=== PATIENT | male | born 1935 | race Hispanic/Latino ===

== ENCOUNTER 2018-04-01 16:19 | Inpatient (IN) | payer MEDICARE ==
[2018-04-01 16:40] VITALS: BMI 15.5
--- NOTE | 2018-04-01 17:30 | ED PDOC ---
Arrival/HPI - General Historian: Patient, Spouse - History of Present Illness Time/Duration: Other (1 day) Symptom Onset: Sudden Symptom Course: Unchanged Quality: Stabbing, Throbbing Severity Level: 7 <Ady Berrios - Last Filed: 04/01/18 22:57> <FloriTaz - Last Filed: 04/01/18 23:11> - General Chief Complaint: Back Pain Time Seen by Provider: 04/01/18 16:28 - History of Present Illness Narrative History of Present Illness (Text): 04/01/18 19:02 Patient with PMH of HTN, HLD, hx Prostate Ca s/p radiation tx, and CAD s/p CABG who presents with acute onset left lower back pain. Reports awoke from sleep this AM with left lower back pain, thinks while twisting in bed he developed it. Denies any similar past pain. Denies hx nephrolithiasis. Pain worse with movement or palpation. Denies dysuria, hematuria, frequency since awaking with pain, voiding urine and moved bowels without issue. Denies nausea, emesis; tolerated AM PO intake without issue. reports to staff he spends most of time in bed, minimally active, and has been losing weight continuously. Appears cachetic on exam. Admits chronic smoking hx, previously 1/2 ppd for > 50 yrs, recently cut down to 1/4 ppd. Denies shortness of breath, chest pain, fevers, chills, dysuria, hematuria, obstructed urinary flow, diarrhea, focal weakness, or radiation of back pain into midline back or down left leg. All other ROS in 12-system review negative. PMH: as above PSH: CABG Soc Hx: admits tobacco (down to 1/4 ppd, previously 1/2 ppd x 50 yrs), denies alcohol/illicits/IVDA Fam Hx: unsure PMD: Dr. Luna (Ady Berrios) Associated Symptoms (Text): 04/01/18 19:21 Worse with position changes or palpation (Ady Berrios) Past Medical History - Provider Review Nursing Documentation Reviewed: Yes - Cardiac Hx Hypertension: Yes - Psychiatric Hx Substance Use: No - Surgical History Hx Open Heart Surgery: Yes (tripple bypass) - Anesthesia Hx Anesthesia Reactions: No Hx Malignant Hyperthermia: No <Ady Berrios - Last Filed: 04/01/18 22:57> Family/Social History - Physician Review Nursing Documentation Reviewed: Yes Family/Social History: Unknown Family HX Smoking Status: Current Some Days Smoker Hx Alcohol Use: Yes Frequency of alcohol use: Socially Hx Substance Use: No <Ady Berrios - Last Filed: 04/01/18 22:57> Allergies/Home Meds <Ady Berrios - Last Filed: 04/01/18 22:57> <Taz Ruby - Last Filed: 04/01/18 23:11> Allergies/Adverse Reactions: Allergies No Known Allergies Allergy (Verified 04/01/18 16:35) Home Medications: Home Meds Medication Instructions Recorded Confirmed Lisinopril [Zestril] 20 mg PO DAILY 04/01/18 04/01/18 Review of Systems - Physician Review All systems were reviewed & negative as marked: Yes (as per HPI) - Review of Systems Constitutional: Normal. absent: Fatigue Eyes: Normal. absent: Vision Changes Respiratory: Normal. absent: SOB Cardiovascular: Normal. absent: Chest Pain, Syncope Gastrointestinal: Normal. absent: Abdominal Pain, Constipation, Diarrhea, Nausea, Vomiting Genitourinary Male: Normal. absent: Dysuria, Frequency, Hematuria Musculoskeletal: Back Pain. absent: Normal, Neck Pain Neurological: Normal. absent: Headache, Dizziness <Ady Berrios - Last Filed: 04/01/18 22:57> Physical Exam Vital Signs Reviewed: Yes Temperature: Afebrile Blood Pressure: Hypotensive Pulse: Regular Respiratory Rate: Normal Appearance: Positive for: Non-Toxic, Ill-Appearing, Uncomfortable, Cachectic Pain Distress: Moderate Mental Status: Positive for: Alert and Oriented X 3 - Systems Exam Head: Present: Atraumatic, Normocephalic Pupils: No: Pinpoint Extroacular Muscles: Present: EOMI. No: Gaze Palsy, Entrapment Conjunctiva: Present: Normal. No: Injected, Icteric Mouth: Present: Dry, Normal Lips, Normal Tounge. No: Moist Mucous Membranes, Drooling Nose (External): Present: Atraumatic. No: Abrasion, Laceration Nose (Internal): Present: No Active Bleeding. No: Epistaxis Neck: Present: Normal Range of Motion, Trachea Midline. No: MIDLINE TENDERNESS , JVD Respiratory/Chest: Present: Clear to Auscultation, Good Air Exchange, Decreased Breath Sounds (mildly decreased breath sounds all turner). No: Respiratory Distress, Accessory Muscle Use, Wheezes, Rales, Rhonchi Cardiovascular: Present: Regular Rate and Rhythm, Normal S1, S2. No: Murmurs, Irregular Rhythm, Tachycardic, Bradycardic Abdomen: Present: Normal Bowel Sounds. No: Tenderness, Distention, Guarding, Mass/Organomegaly Back: Present: CVA Tenderness (left CVA tenderness), Other (left quadratus lumborum muscle spasm). No: Midline Tenderness, Paraspinal Tenderness, Pain with Leg Raise, Decubitus Ulcer Upper Extremity: Present: Normal Inspection, Normal ROM, NORMAL PULSES. No: Cyanosis, Edema, Tenderness, Swelling, Erythema, Deformity Lower Extremity: Present: Normal Inspection, NORMAL PULSES, Normal ROM. No: Edema, CALF TENDERNESS, Cyanosis, Tenderness, Swelling, Erythema, Deformity Neurological: Present: GCS=15, Speech Normal, Motor Func Grossly Intact, Normal Sensory Function Skin: Present: Warm, Dry, Normal Color. No: Rashes Lymphatic: No: Cervical Adenopathy Psychiatric: Present: Alert, Oriented x 3, Normal Insight, Normal Concentration , Normal Affect, Normal Mood <Ady Berrios - Last Filed: 04/01/18 22:57> <Taz Ruby - Last Filed: 04/01/18 23:11> Vital Signs Temp Pulse Resp BP Pulse Ox 04/01/18 18:19 83 18 97/63 L 95 04/01/18 16:19 98.7 F 95 H 18 95/51 L 94 L Medical Decision Making Reassessment Condition: Re-examined, Unchanged <Ady Berrios - Last Filed: 04/01/18 22:57> <Taz Ruby - Last Filed: 04/01/18 23:11> ED Course and Treatment: 04/01/18 17:30 Ddx: Nephrolithiasis vs Quadratus lumborum spasm vs Pyelonephritis; failure to thrive sx suggestive of occult cancer in patient with extensive smoking hx -Lack of systemic symptoms less suggestive of Pyelo/UTI, but will obtain UA to assess -Definite left quad lumborum muscle spasm on exam, trial 2mg Valium x1 for pain control and relief -If UA negative for hematuria, less likely stone, can obtain CT chest/abd/ pelvis with contrast for assessment for possible cancer and staging, if positive for hematuria then CT without contrast to assess for nephrolithiasis -CBC, CMP, Mg, Phos ordered, CXR ordered to assess for baseline pulmonary disease, follow up 04/01/18 18:42 -CXR concerning for possible widened descending aorta, awaiting UA results to determine CT with/without contrast or just with, also suggestive of several discrete lung masses bilaterally -Labs suggestive of dehydration, new KEIRA and elevated BUN (1.6 Cr, was 0.9 in 2011, BUN 66) not present in 2010, starting LR 2L bolus 04/01/18 21:23 -UA suggestive of UTI, also notable for 5-10 RBCs/hpf, will obtain CT without contrast to assess for nephrolithiasis -Still appears dry, minimal urine output despite 2L bolus, another 1L LR ordered 04/01/18 22:58 -No nephrolithaisis on CT Chest/abd/pelvis, but multiple lung lesions suspicious for malignancy, multiple renal lesions (cyst vs mass), possible L hydronephrosis, and bladder distension; pending official read -Carrillo for bladder distension, suspect urinary retention, possibly 2/2 hx prostate cancer s/p radiation therapy -Started on Rocephin for UTI -Case discussed with pt's PMD, Dr. Luna, who agrees with admission for UTI/ Possibly Pyelo with failure to thrive. Requests NS 50cc/hr IVF, ID consult ( Dr. Jenkins), and agrees with antibiotics and Carrillo placement. Bridge orders placed. To be admitted to Med/Surg. Patient seen, reviewed, and discussed with attending[facility] I agree with resident md note /exam/appraisal . CT Abd /pelvis pending official read has been disussed with Dr. Luna whom will be following it up, prn urology consultation. 04/01/18 23:07 (Taz Ruby) - Lab Interpretations Lab Results: 04/01/18 17:20 04/01/18 17:20 Lab Results 04/01/18 19:41: Urine Color Light yellow, Urine Appearance Sl cloudy, Urine pH 6.0, Ur Specific [place] 1.020, Urine Protein 30 H, Urine Glucose (UA) Negative , Urine Ketones Negative, Urine Blood Moderate H, Urine Nitrate Negative, Urine Bilirubin Negative, Urine Urobilinogen 0.2, Ur Leukocyte Esterase Large H, Urine RBC 5 - 10, Urine WBC Tntc, Ur Epithelial Cells 0 - 2, Urine Bacteria Large 04/01/18 17:20: Sodium 139, Chloride 94 L, Potassium 3.7, Carbon Dioxide 35 H, Anion Gap 14, BUN 66 H, Creatinine 1.6 H, Est GFR ( Amer) 50, Est GFR ( Non-Af Amer) 42, Random Glucose 102, Calcium 8.8, Magnesium 2.0, Total Bilirubin 0.2, AST 20, ALT 20, Alkaline Phosphatase 136 H, Troponin I < 0.01, Total Protein 6.7, Albumin 3.4, Globulin 3.3, Albumin/Globulin Ratio 1.0 L 04/01/18 17:20: pO2 27 L, VBG pH 7.37, VBG pCO2 66.0 H*, VBG HCO3 38.2 H, VBG Total CO2 40.2 H, VBG O2 Sat (Calc) 59.7, VBG Base Excess 10.2 H, VBG Potassium 3.6, Sodium 136.0, Chloride 98.0, Glucose 102, Lactate 1.0, FiO2 21.0, Venous Blood Potassium 3.6 04/01/18 17:20: PT 13.6 H, INR 1.19 H, APTT 27.5 04/01/18 17:20: WBC 14.0 H, RBC 3.69, Hgb 11.0 L, Hct 33.8 L, MCV 91.6, MCH 29.8 , MCHC 32.5, RDW 13.4, Plt Count 392, MPV 9.4, Gran % 79.9 H, Lymph % (Auto) 7.8 L, [place] % (Auto) 11.1 H, Eos % (Auto) 1.0 L, Baso % (Auto) 0.2, Gran # 11.20 H, Lymph # (Auto) 1.1 L, [place] # (Auto) 1.6 H, Eos # (Auto) 0.1, Baso # ( Auto) 0.03 - RAD Interpretation Radiology Orders: 04/01/18 17:13 CHEST PORTABLE [RAD] Stat 04/01/18 20:14 CHEST,ABDOMEN, PELVIS W/O CONT [CT] Stat - Medication Orders Current Medication Orders: Lactated Ringer's (Lactated Ringer's) 1,000 mls @ 999 mls/hr IV .Q1H1M [facility] Last Admin: 04/01/18 19:19 Dose: 999 mls/hr eMAR Start Stop Document 04/01/18 19:19 EWO (Rec: 04/01/18 19:19 [id number]) Intravenous Solution Start Date 04/01/18 Start Time 19:15 End Date 04/01/18 End time 20:15 Total Infusion Time 60 Ceftriaxone Sodium (Rocephin 1 Gram Ivpb) 1 gm in 100 mls @ 100 mls/hr IVPB ONCE ONE PRN Reason: Protocol Stop: 04/01/18 23:59 Ceftriaxone Sodium (Rocephin 1 Gram Ivpb) 1 gm in 100 mls @ 100 mls/hr IVPB DAILY [facility] PRN Reason: Protocol Sodium Chloride (Sodium Chloride 0.9%) 1,000 mls @ 50 mls/hr IV .Q20H [facility] Discontinued Medications Diazepam (Valium) 2 mg PO ONCE ONE PRN Reason: Protocol Stop: 04/01/18 17:23 Last Admin: 04/01/18 17:33 Dose: 2 mg Lactated Ringer's 2,000 ml/ IV (SUPPLIES) 2,000 mls @ 48,848.1 mls/hr IV ONCE ONE PRN Reason: 999 ML/KG/HR Stop: 04/01/18 17:14 Last Admin: 04/01/18 17:33 Dose: 48,848.1 mls/hr eMAR Start Stop Document 04/01/18 17:33 EWO (Rec: 04/01/18 17:34 [id number]) Intravenous Solution Start Date 04/01/18 Start Time 17:34 End Date 04/01/18 End time 18:00 Total Infusion Time 26 Tamsulosin HCl (Flomax) 0.4 mg PO STAT STA Stop: 04/01/18 20:50 - PA / WOUND CARE RN / Resident Statement / has examined the patient and agrees with the treatment plan. <Taz Ruby - Last Filed: 04/01/18 23:11> Disposition/Present on Arrival - Present on Arrival Any Indicators Present on Arrival: No History of DVT/PE: No History of Uncontrolled Diabetes: No Urinary Catheter: No History of Decub. Ulcer: No History Surgical Site Infection Following: CABG - Mediastinitis - Disposition Have Diagnosis and Disposition been Completed?: Yes Disposition Time: 22:57 Patient Plan: Admission <Ady Berrios - Last Filed: 04/01/18 22:57> <Taz Ruby - Last Filed: 04/01/18 23:11> - Disposition Diagnosis: UTI (urinary tract infection), Pyelonephritis, Failure to thrive, Dehydration Disposition: HOSPITALIZED Patient Problems: Current Active Problems Problem Status Onset Pyelonephritis Acute UTI (urinary tract infection) Acute Condition: GUARDED Referrals: Celia JIMENEZ,Alessio Johnson MD [Primary Care Provider] - Follow up with primary Forms: [employer] (Belarusian)
[2018-04-01 17:41] LABS: BASO # 0.03 K/mm3 (0.0-2.0); BASO % 0.2 % (0.0-3.0); EOS # 0.1 (0.0-0.7); GRAN # 11.2 (1.4-6.5); GRAN % 79.9 % (50.0-68.0); LYMPH # 1.1 (1.2-3.4); LYMPH % 7.8 % (22.0-35.0); MEAN CELL VOLUME 91.6 fl (80.0-105.0); MEAN CORPUSCULAR HEMOGLOBIN 29.8 pg (25.0-35.0); MEAN CORPUSCULAR HGB CONC 32.5 g/dl (31.0-37.0); MEAN PLATELET VOLUME 9.4 fl (7.0-11.0); MONO # 1.6 (0.1-0.6); MONO % 11.1 % (1.0-6.0); RBC 3.69 10^6/uL (3.5-6.1); RED CELL DISTRIBUTION WIDTH 13.4 % (11.5-14.5)
[2018-04-01 17:52] LABS: ALBUMIN 3.4 g/dL (3.0-4.8); ALT/SGPT 20 U/L (7-56); AST/SGOT 20 U/L (17-59); BLOOD UREA NITROGEN 66 mg/dL (7-21); CALCIUM 8.8 mg/dL (8.4-10.5); GFR AFRICAN-AMERICAN 50; GFR NON-AFRICAN AMERICAN 42
[2018-04-01 17:55] LABS: VENOUS BLOOD GAS BASE EXCESS 10.2 mmol/L (0.0-2.0); VENOUS BLOOD GAS PO2 27 mm/Hg (30-55); VENOUS BLOOD PH 7.37 (7.32-7.43)
[2018-04-01 17:56] LABS: INR 1.19 (0.93-1.08); PARTIAL THROMBOPLASTIN TIME 27.5 Seconds (25.1-36.5); PROTHROMBIN TIME 13.6 SECONDS (9.4-12.5)
[2018-04-01 18:03] LABS: TROPONIN I < 0.01 ng/mL
[2018-04-01] MEDS: Lactated Ringer's 1,000 ML IV SCH ×5 (19:19→23:30)
[2018-04-01 19:56] LABS: URINE BILIRUBIN NEGATIVE (NEGATIVE); URINE BLOOD MODERATE (NEGATIVE); URINE GLUCOSE (UA) NEGATIVE (NEGATIVE); URINE LEUKOCYTE ESTERASE LARGE Leu/uL (NEGATIVE); URINE PROTEIN 30 mg/dL (<30 mg/dL); URINE UROBILINOGEN 0.2 E.U./dL (<1 E.U./dL)
[2018-04-01 19:57] LABS: URINE APPEARANCE SL CLOUDY (CLEAR); URINE COLOR LIGHT YELLOW (YELLOW)
[2018-04-01 20:27] LABS: URINE BACTERIA LARGE (NEG); URINE EPITHELIAL CELLS 0 - 2 /hpf (0-5); URINE WBC TNTC /hpf (0-6)
[2018-04-01] MEDS ORDERED: cefTRIAXone 1 gm 1 GM/100 ML BAG IVPB ONE (23:00)
[2018-04-02] MEDS: Lactated Ringer's 1,000 ML IV SCH ×2 (00:45→01:21)
[2018-04-02] MEDS ORDERED: Pneumococcal 23-Valent Vaccine IM ONE (01:42)
[2018-04-02] MEDS: Sodium Chloride 0.9% 1,000 ML IV SCH ×2 (02:27→19:25)
[2018-04-02 08:09] LABS: HEMOGLOBIN 12.1 g/dL (14.0-18.0); MEAN CELL VOLUME 91.3 fl (80.0-105.0); MEAN CORPUSCULAR HEMOGLOBIN 30.2 pg (25.0-35.0); MEAN CORPUSCULAR HGB CONC 33.1 g/dl (31.0-37.0); RBC 4.01 10^6/uL (3.5-6.1); RED CELL DISTRIBUTION WIDTH 13.3 % (11.5-14.5); WHITE BLOOD COUNT 15.9 10^3/ul (4.5-11.0)
[2018-04-02 08:31] LABS: BLOOD UREA NITROGEN 41 mg/dL (7-21); CALCIUM 8.7 mg/dL (8.4-10.5); GFR AFRICAN-AMERICAN > 60; GFR NON-AFRICAN AMERICAN > 60
--- NOTE | 2018-04-02 08:40 | CT ---
PROCEDURE: CT Chest, Abdomen without intravenous contrast HISTORY: hematuria COMPARISON: None. TECHNIQUE: Radiation dose: Total exam DLP = 315 mGy-cm. This CT exam was performed using one or more of the following dose reduction techniques: Automated exposure control, adjustment of the mA and/or kV according to patient size, and/or use of iterative reconstruction technique. FINDINGS: CT CHEST WITHOUT CONTRAST: LUNGS: Severe centrilobular emphysema. 4.4 centimeter pleural-based mass at the right lower lobe, as well as a 2.0 centimeter pleural-based mass in the left lower lobe. Additional pleural-based nodule in the left upper lobe measuring 1.1 centimeter. 1.2 centimeter juxtapleural nodule is noted along the right major fissure. 2.6 centimeter left pericardial pleural margin mass. Findings are suspicious for metastases. MEDIASTINUM: 4.6 centimeter aortic aneurysm. . Normal size heart. LYMPH NODES: Unremarkable. PLEURA: Small right pleural effusion. BONES: Unremarkable. OTHER FINDINGS: None. CT ABDOMEN AND PELVIS: LIVER: Unremarkable. No gross lesion or ductal dilatation. GALLBLADDER AND BILE DUCTS: Unremarkable. PANCREAS: Unremarkable. No gross lesion or ductal dilatation. SPLEEN: Unremarkable. ADRENALS: Unremarkable. No mass. KIDNEYS AND URETERS: Multiple bilateral renal cysts. . No hydronephrosis. No solid mass. VASCULATURE: 3.1 centimeter abdominal aortic aneurysm. BOWEL: Unremarkable. No obstruction. No gross mural thickening. APPENDIX: Normal appendix. PERITONEUM: Unremarkable. No free fluid. No free air. LYMPH NODES: Unremarkable. No enlarged lymph nodes. Bladder is distended. Prostate enlargement. BONES: No acute fracture. OTHER FINDINGS: None. IMPRESSION: Multiple pleural-based masses suspicious for metastases. Thoracic and abdominal aortic aneurysm.
--- NOTE | 2018-04-02 09:07 | RAD ---
HISTORY: Sepsis Patient COMPARISON: No prior. FINDINGS: LUNGS: There is a 4.4 cm mass at the right lung base and a 2.4 cm mass in the left lower lobe. There are no prior studies for comparison. Findings consistent with metastatic disease. The lungs have a hyperaerated appearance consistent with COPD PLEURA: No significant pleural effusion identified, no pneumothorax apparent. CARDIOVASCULAR: Normal. OSSEOUS STRUCTURES: Sternal wires VISUALIZED UPPER ABDOMEN: Normal. OTHER FINDINGS: None. IMPRESSION: Bilateral lung masses
[2018-04-02] MEDS ORDERED: cefTRIAXone 1 gm 1 GM/100 ML BAG IVPB SCH (10:00)
--- NOTE | 2018-04-02 10:17 | RAD ---
PROCEDURE: Radiographs of the Lumbar Spine. HISTORY: low back pain, history of prostate cancer COMPARISON: No prior. FINDINGS: BONES: There is spondylolysis at L5 with mild spondylolisthesis at L5-S1. No evidence of metastatic disease DISC SPACES: Unremarkable. OTHER FINDINGS: None. IMPRESSION: There is spondylolysis at L5 with mild spondylolisthesis at L5-S1. No evidence of metastatic disease
--- NOTE | 2018-04-02 10:18 | RAD ---
PROCEDURE: Left Hip X-ray Radiographs. HISTORY: left hip pain COMPARISON: None. FINDINGS: BONES: Normal. No fracture. JOINTS: Normal. SOFT TISSUES: Normal. OTHER FINDINGS: None. IMPRESSION: No acute finding
--- NOTE | 2018-04-02 16:10 | CP.PCM.CON ---
History of Present Illness - History of Present Illness History of Present Illness: 82 year old male with PMH of CAD S/P CABG, prostate CA S/P radiation therapy, HTN, dyslipidemia, significant smoking history [place] [facility] [place] of left sided back pain after waking up. He felt that he moved wrongly and twisted his back. He is also complaining of some urinary frequency but no hematuria, no dysuria, no fever or chills, no nausea or vomiting, no chest pain, no SOB, no headache or dizziness, no abdominal pain, no diarrhea, no dysuria. Urinalysis done in the ED is showing pyuria. Infectious Diseases consult is requested to further evaluate and manage. Review of Systems - Review of Systems All systems: reviewed and no additional remarkable complaints except (as per HPI ) Past Patient History - Past Social History Smoking Status: Former Smoker - CARDIAC Hx Cardiac Disorders: Yes Hx Hypertension: Yes - PULMONARY Hx Chronic Obstructive Pulmonary Disease (COPD): Yes - MUSCULOSKELETAL/RHEUMATOLOGICAL Hx Falls: No - PSYCHIATRIC Hx Substance Use: No - SURGICAL HISTORY Hx Surgeries: Yes Hx Coronary Stent: Yes - ANESTHESIA Hx Anesthesia Reactions: No Hx Malignant Hyperthermia: No Meds Allergies/Adverse Reactions: Allergies Allergy/AdvReac Type Severity Reaction Status Date / Time No Known Allergies Allergy Verified 04/01/18 16:35 - Medications Medications: Current Medications Lactated Ringer's (Lactated Ringer's) 1,000 mls @ 999 mls/hr IV .Q1H1M [facility] Last Admin: 04/02/18 01:21 Dose: 999 mls/hr Ceftriaxone Sodium (Rocephin 1 Gram Ivpb) 1 gm in 100 mls @ 100 mls/hr IVPB DAILY [facility] PRN Reason: Protocol Sodium Chloride (Sodium Chloride 0.9%) 1,000 mls @ 50 mls/hr IV .Q20H [facility] Last Admin: 04/02/18 02:27 Dose: 50 mls/hr Physical Exam - Constitutional Appears: Non-toxic, Cachectic, Chronically Ill - Head Exam Head Exam: NORMAL INSPECTION - ENT Exam ENT Exam: Mucous Membranes Moist - Neck Exam Neck exam: Negative for: Meningismus - Respiratory Exam Respiratory Exam: Decreased Breath Sounds - Cardiovascular Exam Cardiovascular Exam: +S1, +S2 - GI/Abdominal Exam GI & Abdominal Exam: Soft. absent: Tenderness - Back Exam Back exam: tenderness (on the left side (on palpation of the lumbar musculature) ) Results - Vital Signs Recent Vital Signs: Last Vital Signs Temp 98.1 F 04/02/18 01:28 Pulse 105 H 04/02/18 01:28 Resp 18 04/02/18 01:28 BP 107/44 L 04/02/18 01:28 Pulse Ox 99 04/02/18 01:21 - Labs Result Diagrams: 04/02/18 08:00 04/02/18 08:00 Assessment & Plan - Assessment and Plan (Free Text) Plan: Assessment Systemic Inflammatory response syndrome, consider due to acute musculoskeletal pain on top of probable metastatic prostate cancer R/O UTI CAD S/P CABG prostate CA S/P radiation therapy HTN dyslipidemia significant smoking history Plan Started the patient on Rocephin pending urine cx reviewed CT C/A/P patient will need evaluation and recommendations from Oncology overall prognosis is poor will monitor clinically
--- NOTE | 2018-04-02 16:32 | CARD ---
APPROVED REPORT EKG Measurement Heart [id number] <Conclusion> Sinus tachycardia Low voltage QRS Borderline ECG
--- NOTE | 2018-04-02 20:19 | HP ---
HISTORY OF PRESENT ILLNESS: The patient is an 82 year old man with a past medical history of prostate cancer s/p radiation therapy (treated in 2001) and COPD who presented for evaluation of a 3 week history of progressively worsening low back pain which became acutely worse over the preceding 3 days. The patient reports that for the past 3 weeks he has been experiencing a dull pain to his lower back with radiation to the left hip. Over the course of the past 3 days the pain suddenly worsened spontaneously and the patient developed difficulty ambulating. Due to his gait instability and weakness he was brought to the ED. Examination in the ED disclosed found him to be cachectic and with a mildly distended abdomen with suprapubic tenderness. A ghosh catheter was placed and he was subsequently admitted for hydration and nourishment. PAST MEDICAL HISTORY: As per HPI, also hypertension and CAD s/p CABG. PAST SURGICAL HISTORY: As per HPI. ALLERGIES: NKDA. MEDICATIONS: Lisinopril/HCTZ 20/25 mg p.o. daily. FAMILY HISTORY: Significant for COPD and hypertension. SOCIAL HISTORY: The patient reports an active [id number] smoking history and social alcohol use. He denies illicit drug abuse. REVIEW OF SYSTEMS: Positive for poor appetite, weight loss, back pain, increased urinary frequency , nocturia and weak stream. Negative for fevers, chills, rigors, hematuria, melena, hematochezia or hemoptysis. PHYSICAL EXAMINATION VITAL SIGNS: Temperature 98.3, pulse 97, blood pressure 100/59, respiratory rate 20, oxygen saturation 95% on room air. GENERAL: A cachectic chronically ill appearing elderly man, lying in bed in no apparent distress. HEENT: PERRL. EOMI. No scleral icterus. No conjunctival pallor. NECK: No JVD. LUNGS: Decreased breath sounds at the bases. CARDIOVASCULAR: Regular rate and rhythm. Normal S1 and S2. ABDOMEN: Normoactive bowel sounds. Soft, nontender, and nondistended. EXTREMITIES: No edema. NEUROLOGIC: Awake, alert and oriented x 3. No focal motor deficits. LABORATORY DATA: WBC 15.9 with 80% neutrophils, hemoglobin 12, hematocrit 36, platelets 361. Sodium 139, potassium 3.7, chloride 94, bicarbonate 35, BUN 66, creatinine 1.6, glucose 102. Urinalysis demonstrates cloudy urine with moderate blood, large leukocyte esterase, but negative nitrites. IMAGING STUDIES: 1. Chest x-ray pending. 2. CT of the chest, abdomen and pelvis pending. ASSESSMENT: The patient is an 82 year old man with a past medical history of prostate cancer s/p radiation therapy, CAD s/p CABG, COPD and HTN who presented for evaluation of progressively worsening low back pain, lower urinary symptoms and failure to thrive. PLAN: 1. Low back pain, consider etiology secondary to osteoarthritis versus possible muscle spasm vs urinary retention. Given the patient's underlying history of prostate cancer, we will obtain an x-ray of the lumbosacral spine and left hip to rule out possibility of metastatic prostate cancer. Continue with Motrin 800 mg p.o. t.i.d. p.r.n. pain and Flexeril 5 mg p.o. t.i.d. Continue with PT/OT. 2. History of prostate cancer s/p radiation therapy. The patient completed a course of treatment in 2001 and was previously followed by Dr. Merritt of Urology. We will repeat a PSA and await imaging studies and we will consult Urology to evaluate need for long-term ghosh. 3. Acute kidney injury, consider etiology secondary to obstructive uropathy versus prerenal azotemia in the setting of poor p.o. intake. As above, we were awaiting CT imaging to assess for possible obstruction. A Ghosh catheter has been placed and we will continue to monitor strict I&O's. Continue with gentle IV fluid hydration consisting of normal saline at 50 mL per hour. Continue to renally dose medications and avoid nephrotoxins. 4. CAD s/p CABG. 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 Resume Aspirin 81 mg p.o. daily. 5. COPD. Continue with supplemental oxygen and bronchodilators as needed. 6. Hypertension. Blood pressure remains borderline low. We will continue with IV fluid hydration and hold antihypertensives. 7. Failure to thrive. 8. Prophylaxis. GI prophylaxis is not indicated as the patient is eating. We will start heparin for DVT prophylaxis. CODE STATUS: Full code. Alessio Yang MD [facility] # [id number] MTDD
--- NOTE | 2018-04-03 05:54 | CON ---
DATE: 04/02/2018 GENITOURINARY CONSULTATION CHIEF COMPLAINT: Urinary retention. HISTORY OF PRESENT ILLNESS: This is an 82-year-old male who was seen in [facility]. He was admitted with acute onset of left lower back pain. Reportedly, the patient thinks he hurt it while twisting. He has no history of kidney stones. He does have a reported history of prostate cancer status post radiation treatment. He denies any dysuria, urinary frequency or gross hematuria. He reportedly had been voiding and moving his bowels without any issues. He denied any nausea or vomiting. The pain seems to be positional, worsened with bending or stretching, and palpation to the lower back. A consultation was then requested regarding the above. PAST MEDICAL HISTORY: Significant for COPD, coronary artery disease, hypertension. MEDICATIONS: Include aspirin, Flexeril, heparin, Motrin and IV fluids. He did receive Rocephin. ALLERGIES: NO KNOWN DRUG ALLERGIES. FAMILY HISTORY: Noncontributory for this event. SOCIAL HISTORY: Positive for smoking in the past, social EtOH use. REVIEW OF SYSTEMS: A 12-point review of systems was obtained from the patient who is awake and answering questions, although somewhat somnolent and appears to be a poor historian. Positive for low back pain. Other systems appear to be negative. Unclear why Carrillo catheter was placed. PHYSICAL EXAMINATION: CONSTITUTIONAL: The patient is awake and responsive, no acute distress, answering questions although a poor historian. The patient is very thin, somewhat cachectic looking. VITAL SIGNS: He is afebrile. Temperature of 98.3, pulse 97, BP 100/59, respirations 20. NECK: Supple. There is no adenopathy or mass. CHEST: Reveals normal inspiratory effort. Cardiac: Shows positive S1 and S2. There is no peripheral edema. ABDOMEN: Soft, nontender, nondistended. There is no hepatosplenomegaly. There is no costovertebral angle tenderness. There is tenderness on his lower back in the midline. GENITOURINARY: The phallus is normal. There is a Carrillo catheter in place draining clear-colored urine. The scrotum is normal. Testes bilaterally descended, nontender, no masses. Epididymides are normal. EXTREMITIES: There is no cyanosis, clubbing or edema. LABORATORY DATA: WBC count 15.9, hemoglobin 12.1. Creatinine was 1.6 yesterday, down to 1, with a GFR greater than 60. Elevated alkaline phosphatase. Urinalysis shows 5 to 10 rbc, too numerous to count wbc, nitrites are negative. On radiologic exam, the patient had a CT scan of the abdomen and pelvis done yesterday, which showed a 4.6 cm aortic aneurysm. The kidney showed multiple bilateral renal cysts. There was no hydronephrosis or solid mass. There was a 3.1 cm abdominal aneurysm, 4.6 in the mediastinum. There are multiple pleural-based masses suspicious for metastases. The patient had x-rays of the hips, pelvis and lumbar spine; hips and pelvis no acute findings, and the LS spine, no evidence of metastatic disease. Blood cultures, no growth after 24 hours. IMPRESSION AND PLAN: This is an 82-year-old male admitted with low back pain. Urologically, the patient appears to have had an episode of urinary retention, although he reported no voiding problems prior to this. It is unclear how much urine was in his bladder when the Carrillo was placed. His renal function has improved with Carrillo drainage. I would continue Carrillo drainage for now as it appears that the patient has lung cancer or metastatic tumors to his lung. Urologically, the plan would be when the patient's medical condition has improved, I will likely start him on tamsulosin and do a voiding trial, but I will discuss this with his medical attending Dr. Yang. For now, maintain Carrillo catheter indwelling at this time, check urine culture regarding wbc's in the urine, and I will need to discuss further plans with Dr. Yang. Carroll Godwin MD
[2018-04-03 06:57] LABS: BASO # 0.02 K/mm3 (0.0-2.0); BASO % 0.2 % (0.0-3.0); EOS # 0.1 (0.0-0.7); EOS % 0.6 % (1.5-5.0); GRAN # 10.48 (1.4-6.5); GRAN % 84.2 % (50.0-68.0); HEMOGLOBIN 10.9 g/dL (14.0-18.0); LYMPH # 1.3 (1.2-3.4); LYMPH % 10.5 % (22.0-35.0); MEAN CORPUSCULAR HGB CONC 32.6 g/dl (31.0-37.0); MEAN PLATELET VOLUME 9.3 fl (7.0-11.0); MONO # 0.6 (0.1-0.6); MONO % 4.5 % (1.0-6.0); RBC 3.63 10^6/uL (3.5-6.1); RED CELL DISTRIBUTION WIDTH 13.2 % (11.5-14.5); WHITE BLOOD COUNT 12.4 10^3/ul (4.5-11.0)
[2018-04-03 07:23] LABS: ALB/GLOB RATIO 0.9 (1.1-1.8); ALBUMIN 2.8 g/dL (3.0-4.8); ALT/SGPT 18 U/L (7-56); AST/SGOT 16 U/L (17-59); BLOOD UREA NITROGEN 32 mg/dL (7-21); CALCIUM 8.4 mg/dL (8.4-10.5); GFR AFRICAN-AMERICAN > 60; GFR NON-AFRICAN AMERICAN > 60
[2018-04-03] MEDS ORDERED: Lidocaine 1% Inj (20ml) ONE (09:28)
[2018-04-03] MEDS ORDERED: Midazolam 2 MG/2 ML VIAL ONE (09:28)
[2018-04-03] MEDS ORDERED: Sodium Chloride 0.45% 1,000 ML IV SCH (10:30)
[2018-04-03 13:24] LABS: INR 1.18 (0.93-1.08); PROTHROMBIN TIME 13.5 SECONDS (9.4-12.5)
--- NOTE | 2018-04-03 14:00 | PN ---
SUBJECTIVE: The patient was seen and examined at bedside on the general medical nelson. No acute events overnight. He endorses improvement in his low back pain since admission and overall offers no complaints. I had a lengthy discussion with the patient regarding the findings on his CT imaging, particularly the lesions noted on his CT of the chest. The patient was advised that this likely represents malignancy however a biopsy is indicated for confirmation. The patient expressed understanding of his clinical condition and was agreeable to biopsy. He was also evaluated by Dr. Godwin given his reported presentation with urinary retention so as to make recommendations for duration of maintaining the Carrillo catheter. OBJECTIVE: VITAL SIGNS: Temperature 98.2, pulse 83, blood pressure 101/65, respiratory rate 18, oxygen saturation 95% on room air. GENERAL: A cachectic, chronically ill appearing elderly man, lying in bed in no apparent distress. HEENT: PERRL. EOMI. No scleral icterus. No conjunctival pallor. NECK: No JVD. LUNGS: Decreased breath sounds at the bases. CARDIOVASCULAR: Regular rate and rhythm. Normal S1 and S2. ABDOMEN: Normoactive bowel sounds. Soft, nontender, nondistended. EXTREMITIES: No edema. NEUROLOGIC: Awake, alert and oriented x 3. No focal motor deficits. LABORATORY DATA: WBC 12, hemoglobin 11, hematocrit 33, platelets 356. Sodium 141, potassium 4.1, chloride 105, bicarb 35, BUN 32, creatinine 1, glucose 93. Blood cultures with no growth to date. IMAGING STUDIES: 1. CT of the chest, abdomen and pelvis without contrast demonstrated multiple pleural based masses suspicious for metastasis, multiple bilateral renal cysts, a distended bladder and prostate enlargement. 2. X-ray of the left hip demonstrated no acute pathology. 3. X-ray of the L-S spine demonstrated spondylolysis at L5 but no evidence of metastatic disease. ASSESSMENT: The patient is an 82 year old man with a past medical history of prostate cancer s/p radiation therapy, CAD s/p CABG, COPD and HTN who presented with progressively worsening low back pain, lower urinary symptoms and failure to thrive. PLAN: 1. Low back pain, consider etiology secondary to osteoarthritis versus muscle spasm versus urinary retention, resolving. X-ray imaging reviewed and no evidence of lytic lesions or metastatic disease. Furthermore the patient is reporting improvement with administration of Motrin and Flexeril. We will continue Motrin 800 mg p.o. t.i.d. p.r.n. pain but will discontinue Flexeril as the patient became rather hypotensive following administration. If he lumbago increases or does not fully resolve we will consider a bone scan given his underlying history of prostate cancer. Continue with PT/OT. 2. Acute urinary retention, resolved. Input from Dr. Godiwn noted and appreciated and recommendations have been made to maintain the Carrillo catheter in place for now. The Carrillo catheter is functioning properly and the patient is noted to have a favorably trending renal function. As per Dr. Godwin we will perform a voiding trial as the patient gets closer to discharge home. 3. Acute kidney injury, consider etiology secondary to obstructive uropathy versus prerenal azotemia in the setting of poor p.o. intake, resolving. Labs demonstrate a favorably trending renal function and the patient is noted to have a good urinary output. Continue with gentle IV fluid hydration for a further 24 hours consisting of normal saline at 50 mL per hour. Continue renally dosed medications and avoid nephrotoxins. 4. History of prostate cancer s/p radiation therapy. A repeat PSA level is satisfactory. Input from Dr. Godwin appreciated and at present there is no evidence of recurrence. 5. CAD s/p CABG. Continue Aspirin 81 mg p.o. daily. 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 6. COPD. Continue with supplemental oxygen and bronchodilators as needed. 7. Hypertension. The patient remains off antihypertensives and with borderline low blood pressure. Continue to encourage p.o. intake and continue with gentle IV fluid hydration. 8. Pulmonary lesions, highly suspicious for malignancy. Dr. Ancelmo Tucker of IR has been consulted for possible CT-guided biopsy. The patient has been extensively counseled on his current situation and is amenable to a biopsy. 9. Failure to thrive. Continue to encourage p.o. intake. We will obtain a senior principal software engineer consultation. 10. Prophylaxis. GI prophylaxis is not indicated as the patient is eating. Continue with heparin for DVT prophylaxis. CODE STATUS: Full code. Alessio Yang MD [facility]
--- NOTE | 2018-04-03 14:07 | RAD ---
HISTORY: RLL lung bx COMPARISON: CT biopsy images same day FINDINGS: LUNGS: There is no evidence of post biopsy pneumothorax PLEURA: No significant pleural effusion identified, no pneumothorax apparent. CARDIOVASCULAR: Normal. OSSEOUS STRUCTURES: No significant abnormalities. VISUALIZED UPPER ABDOMEN: Normal. OTHER FINDINGS: None. IMPRESSION: There is no evidence of post biopsy pneumothorax
--- NOTE | 2018-04-03 15:36 | CON ---
DATE: 04/03/2018 REASON FOR CONSULT: Multiple lung nodules and history of prostate cancer. HISTORY OF PRESENT ILLNESS: The patient is an 82-year-old male, unknown to me from prior, who has a history of prostate cancer diagnosed early and treated in 2001 with radiation therapy and history of COPD, who presented with complaints of progressively worsening back pain as well as hip pain, which suddenly got worse on Father's Day. He also has been losing weight steadily for the last year. He states he lost over 30 pounds, but has not sought any medical attention for the above. He does have decreased appetite, but denies any GI symptoms, has not noted any melena, any hematochezia. No change in bowel habits. No constipation. No change in caliber of stools. No other complaint. He also noted he had difficulty ambulating before he presented, but he denies prior such pain or complaints. He was also found to be severely dehydrated as he has not been eating or drinking well for the last several months, but has not complained of the above. PAST MEDICAL HISTORY: As above, known for hypertension, COPD, CAD, status post CABG. SURGICAL HISTORY: As above. ALLERGIES: NO KNOWN ALLERGIES. MEDICATIONS AT HOME: Include lisinopril and hydrochlorothiazide 20/25 mg and Flomax 0.4. FAMILY HISTORY: Significant for COPD and hypertension. SOCIAL HISTORY: Positive for [id number] smoking history and social alcohol use. 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 REVIEW OF SYSTEMS: As per the HPI. PHYSICAL EXAMINATION: VITAL SIGNS: His vitals reveal a temperature of 98.2, pulse of 76, respiratory rate of 16 and a blood pressure of 97/61 and much improved since admission of 77 and 47. GENERAL: The patient is an elderly, cachectic-appearing male, lying in bed, in no acute distress. HEENT: Head and neck normocephalic, atraumatic. Eyes: Pupils equal, round, reactive to light and accommodation. Extraocular muscles are intact. There is some pallor. No icterus is noted. NECK: Supple with no adenopathy. No JVD. No thyromegaly. LUNGS: Bilateral rhonchi are heard. CARDIOVASCULAR: S1 and S2 are heard. ABDOMEN: Positive bowel sounds, soft, nontender and nondistended. No organomegaly is palpated. EXTREMITIES: There is no edema, clubbing or cyanosis. LABORATORY DATA: His labs reveal a white count of 12.4, hemoglobin 10.9, hematocrit 33.4, MCV of 92 and a platelet count of 256. His white count diff is left shifted. Coags are within normal limits. His chemistries reveal a BUN and creatinine of 32 and 1. Admission BUN of 66 and creatinine of 1.6. Otherwise, electrolytes are within normal limits. PSA is noted to be only at 0.5. His CT of the chest, abdomen and pelvis which was done on admission without contrast reveals 4.4 cm pleural base mass at the right lower lobe as well as a 2 cm pleural base mass in the left lower lobe, additional pleural base nodules in the left upper lobe as well as right major fissure. His liver is unremarkable and there was no other grossly obstructing lesions noticed in his bowel. ASSESSMENT AND PLAN: Elderly male with a remote history of prostate cancer in 2001, status post radiation. Has not had any evidence of recurrence in multiple years. Now, also noted to have a prostate-specific antigen of 0.5, multiple pleural base nodules suspicious for metastatic disease, status post CT-guided biopsy of the lung yesterday. Discussed with Pathology. No preliminary report is available yet. The patient also has an anemia at this point. We will check iron studies, check a carcinoembryonic antigen. The patient does not have any localizing signs of prostate cancer being metastatic. Would also need an endoscopy and colonoscopy if this comes back as negative for prostate metastatic disease. I discussed with the patient that I will have more information for him once the biopsy results are available to discuss further treatment plans. Thank you for the consult. We will follow. Josi Covarrubias MD
[2018-04-03] MEDS: Sodium Chloride 0.9% 1,000 ML IV SCH (16:48)
--- NOTE | 2018-04-03 17:56 | CT ---
PROCEDURE: CT guided right lower lobe lung biopsy. HISTORY: Smoker. Bilateral pulmonary masses. Evaluate for malignancy PHYSICIAN(S): Ancelmo Tucker MD. TECHNIQUE: The relative risks and indications of the procedure were explained to the patient and consent obtained. The patient was placed prone on the CT scanner and preliminary images through the lung bases obtained. Conscious sedation and monitoring were provided throughout the procedure by a nurse. There is a 4.5 cm spiculated noncalcified mass in the right lower lobe posteriorly. A right posterior approach was selected and the area prepped and draped in the usual sterile fashion. 1% Xylocaine was used to anesthetize the skin and soft tissues. A 19 gauge guiding needle was advanced into the 4.5 cm right lower lobe mass.. Its position was confirmed with CT. Using coaxial technique, multiple core biopsies were obtained. The postprocedure images show no evidence of large pneumothorax or significant hemorrhage.. IMPRESSION: 1. CT-guided right lower lobe lung biopsy as described above.
[2018-04-03] MEDS ORDERED: Vancomycin 1gm in NS 250ml 1 GM/250 ML BAG IVPB STA (22:09)
[2018-04-04 02:28] LABS: URINE BILIRUBIN NEGATIVE (NEGATIVE); URINE BLOOD MODERATE (NEGATIVE); URINE GLUCOSE (UA) NEGATIVE (NEGATIVE); URINE LEUKOCYTE ESTERASE LARGE Leu/uL (NEGATIVE); URINE PROTEIN TRACE mg/dL (<30 mg/dL); URINE UROBILINOGEN 0.2 E.U./dL (<1 E.U./dL)
[2018-04-04 02:31] LABS: URINE APPEARANCE SL CLOUDY (CLEAR); URINE COLOR STRAW (YELLOW)
[2018-04-04 02:51] LABS: URINE EPITHELIAL CELLS 0 - 2 /hpf (0-5)
[2018-04-04 02:52] LABS: URINE BACTERIA SMALL (NEG)
[2018-04-04] MEDS: Sodium Chloride 0.9% 1,000 ML IV SCH (06:11)
[2018-04-04 07:17] LABS: BASO # 0.03 K/mm3 (0.0-2.0); BASO % 0.2 % (0.0-3.0); EOS # 0.1 (0.0-0.7); EOS % 0.9 % (1.5-5.0); GRAN # 10.93 (1.4-6.5); GRAN % 84.6 % (50.0-68.0); HEMOGLOBIN 10.7 g/dL (14.0-18.0); LYMPH # 1.1 (1.2-3.4); LYMPH % 8.6 % (22.0-35.0); MEAN CELL VOLUME 92.5 fl (80.0-105.0); MEAN CORPUSCULAR HEMOGLOBIN 29.6 pg (25.0-35.0); MEAN CORPUSCULAR HGB CONC 31.9 g/dl (31.0-37.0); MEAN PLATELET VOLUME 9.3 fl (7.0-11.0); MONO # 0.7 (0.1-0.6); MONO % 5.7 % (1.0-6.0); PLATELET COUNT 379 10^3/uL (120.0-450.0); RBC 3.62 10^6/uL (3.5-6.1); RED CELL DISTRIBUTION WIDTH 13.3 % (11.5-14.5); WHITE BLOOD COUNT 12.9 10^3/ul (4.5-11.0)
[2018-04-04 07:27] LABS: IRON 30 ug/dL (45-180)
[2018-04-04 07:35] LABS: % IRON SATURATION 18 % (20-55); TOTAL IRON BINDING CAPACITY 170 ug/dL (261-462)
[2018-04-04 07:42] LABS: ALB/GLOB RATIO 0.9 (1.1-1.8); ALBUMIN 2.7 g/dL (3.0-4.8); ALT/SGPT 21 U/L (7-56); AST/SGOT 17 U/L (17-59); BLOOD UREA NITROGEN 19 mg/dL (7-21); CALCIUM 8.2 mg/dL (8.4-10.5); GFR AFRICAN-AMERICAN > 60; GFR NON-AFRICAN AMERICAN > 60
--- NOTE | 2018-04-04 08:37 | PN ---
DATE: 04/03/2018 SUBJECTIVE: The patient is in bed, no acute distress. PHYSICAL EXAMINATION: VITAL SIGNS: Temperature is 98, blood pressure is 87/40, respiratory rate of 18, heart rate of 68, saturating at 94%. HEENT: Unremarkable. NECK: Supple. LUNGS: Have decreased breath sounds. HEART: Normal S1, S2. ABDOMEN: Soft and nontender. LABORATORY DATA: Reveals white count of 12,400, hemoglobin of 10, platelets of 356. Chemistries revealed a BUN of 32, creatinine of 1, and PSA is 0.5. Urinalysis is noted and microbiology reveals the urine is gram-positive cocci. Blood cultures have no growth. Review of orders reveals the patient is on ceftriaxone. ASSESSMENT AND PLAN: This is an 82-year-old male who was seen earlier this morning in [facility], bed 1, with a history of coronary artery disease; prostate cancer, on radiation; hypertension; and dyslipidemia who was admitted with left-sided back pain; systemic inflammatory response syndrome; Gram-positive cocci; urinary tract infection, though the patient did not have any fevers on admission. He had tachycardia up to 105 with O2 saturating at 92 in room air. There is leukocytosis and renal failure which appears to be correcting; severe sepsis with Gram-positive cocci dose of vancomycin, with the Gram-positive cocci and we will make further recommendations on identification of gram-positive cocci. The urinalysis is consistent with [id number] wbc's. We will repeat a urinalysis and urine culture. Atilio Jenkins MD
--- NOTE | 2018-04-04 09:21 | PN ---
DATE: 04/04/2018 SUBJECTIVE: The patient was seen earlier this morning in room 561, bed 1. No fevers. No chills. No nausea. Uneventful night. PHYSICAL EXAMINATION: VITAL SIGNS: Temperature is 98, blood pressure is 120/70, respiratory rate of 18, heart rate of 84. HEENT: Examination of HEENT is unremarkable. NECK: Supple. LUNGS: Have decreased breath sounds. HEART: Normal S1 and S2. ABDOMEN: Soft, nontender. LABORATORY DATA: Laboratory examination reveals a white count of 12,900, hemoglobin of 10. Chemistries reveals a BUN of 19, creatinine of 0.9. Urinalysis is noted. Microbiology reveals a Staph epi. ASSESSMENT AND PLAN: An 82-year-old who was seen earlier this morning with a history of coronary artery disease, prostate cancer, on radiation, also with hypertension, dyslipidemia, admitted with left-sided back pain. The patient with systemic inflammatory response syndrome with gram-positive cocci in the urine culture, which is reported to be Staphylococcus epidermidis, pansensitive staphylococcus epidermidis with repeat urinalysis revealed 10-15 white blood cells, down from too numerous to count. The patient had a biopsy by Dr. Ancelmo Tucker yesterday, CAT scan guided biopsy. Dr. Covarrubias's consultation is reviewed. Waiting for pathology report and CAT scan guided right lower lobe lung biopsy was done with bilateral pulmonary masses. Dr. Godwin's note is reviewed. prostatic cancer metastasizing to nodules in the lung and the patient did have a urinary retention and received a dose of vancomycin yesterday. We will check on the repeat urine culture. Atilio Jenkins MD
--- NOTE | 2018-04-04 13:56 | PN ---
SUBJECTIVE: The patient was seen and examined at the bedside on the general medical nelson. No acute events overnight. He is s/p CT-guided lung biopsy with no postprocedure complications noted. This morning he feels well and denies any specific complaints. OBJECTIVE: VITAL SIGNS: Temperature 98.2, pulse 84, blood pressure 126/74, respiratory rate 16, oxygen saturation 100% on room air. GENERAL: A cachectic, chronically ill-appearing man, lying in bed in no apparent distress. HEENT: PERRL. EOMI. No scleral icterus. No conjunctival pallor. NECK: No JVD. LUNGS: Clear to auscultation. CARDIOVASCULAR: Regular rate and rhythm. Normal S1 and S2. ABDOMEN: Normoactive bowel sounds. Soft, nontender, nondistended. EXTREMITIES: No edema. NEUROLOGIC: Awake, alert and oriented x 3. No focal motor deficits. LABORATORY DATA: WBC 12.9, hemoglobin 10.7, hematocrit 34, platelets 379. Chemistry reviewed and unremarkable. Iron 30, TIBC 170. Ferritin pending. CEA 11.2. Blood cultures with no growth to date. Urine cultures with Staph epidermidis and sensitivities noted. ASSESSMENT: The patient is an 82 year old man with a past medical history of prostate cancer s/p radiation therapy, CAD s/p CABG, COPD and HTN who presented with progressively worsening low back pain, urinary retention and failure to thrive. PLAN: 1. Low back pain, etiology likely musculoskeletal in nature, resolving. Continue Motrin 800 mg p.o. t.i.d. p.r.n. pain. Imaging studies reviewed and there is no evidence of lytic lesions or metastatic disease. Continue with physical therapy. 2. Acute urinary retention, resolved. Input from Dr. Godwin noted and recommendations have been made to maintain the Carrillo catheter in place for now. The patient is noted to have satisfactory urinary output. 3. Acute kidney injury, resolved. Labs demonstrate resolution of renal dysfunction and the patient continues to have good urinary output. We will discontinue IV fluids and continue to encourage p.o. intake. 4. Pulmonary lesions, highly suspicious for malignancy. The patient is s/p CT- guided biopsy with pathology reports pending. Dr. Covarrubias of Hematology/ Oncology has been consulted and her input is greatly appreciated. 5. History of prostate cancer s/p radiation therapy. Repeat PSA level is satisfactory and there is no evidence of recurrence. 6. Iron deficiency anemia. Labs reviewed and also demonstrate an elevated CEA. We will consult Dr. Charlton of GI for evaluation for possible colonoscopy +/ - EGD. 7. CAD s/p CABG. Continue Aspirin 81 mg p.o. daily. 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 8. COPD. Continue supplemental oxygen and bronchodilators as needed. 9. Hypertension. The patient remains off antihypertensives and with improving blood pressure. We will continue to monitor hemodynamics and adjust antihypertensives as needed. 10. Failure to thrive. Continue to encourage p.o. intake. 11. Prophylaxis. GI prophylaxis is not indicated as the patient is eating. Continue with heparin for DVT prophylaxis. CODE STATUS: Full code. Alessio Yang MD [facility]
[2018-04-04 14:25] LABS: FOLATE 6.7 ng/mL
[2018-04-04 14:55] VITALS: BP 120/74; PULSE 71; RESP 18; TEMP 98.4; O2SAT 99
--- NOTE | 2018-04-05 10:02 | DS ---
ADMITTING DIAGNOSES: Acute urinary retention, acute kidney injury, lumbago and failure to thrive. DISCHARGE DIAGNOSES: Multiple pulmonary lesions (pathology pending), acute kidney injury (resolved), lumbago (resolved) and acute urinary retention (resolved s/p Carrillo catheter insertion). SECONDARY DIAGNOSES: History of prostate cancer, iron-deficiency anemia, CAD s/p CABG, hypertension and severe COPD. CONSULTATIONS: Dr. Jenkins (Infectious Disease), Dr. Covarrubias (Hematology/Oncology), Dr. Godwin (Urology) and Dr. Tucker (Interventional Radiology). IMAGING STUDIES: 1. Chest x-ray demonstrated a 4.4 cm mass at the right lung base and a 2.4 cm mass to the left lower lobe as well as hyperaerated lungs consistent with severe COPD. 2. CT of the chest, abdomen and pelvis without contrast demonstrated multiple pleural-based masses suspicious for metastasis, multiple bilateral renal cysts, a distended bladder and prostate enlargement. 3. X-ray of the left hip demonstrated no acute pathology. 4. X-ray of the lumbosacral spine demonstrated no acute pathology. PROCEDURES: CT-guided biopsy of the lung mass. HISTORY OF PRESENT ILLNESS: The patient is an 82 year old man with a past medical history of prostate cancer s/p radiation therapy (treated in 2001), HTN, CAD s/p CABG and severe COPD who presented for evaluation of a 3 week history of progressive worsening low back pain, which became acutely worse over the preceding 3 days. The patient reports that for approximately 3 weeks he has been experiencing a dull pain to his lower back with radiation to the left hip. Over the course of the past 3 days the pain had suddenly worsened spontaneously and the patient developed difficulty ambulating. Due to his instability and weakness, he was brought to the ED. On further interrogation, the patient reports that for the past several months he has been having progressively worsening fatigue, malaise , poor appetite and unintentional weight loss. He denied fevers, chills, rigors , melena, hematochezia or hemoptysis associated with the symptoms. On examination in the ED he was found to be cachectic and with a mildly distended abdomen with suprapubic tenderness. A Carrillo catheter was placed and he was subsequently admitted to the [facility] for continued management of acute urinary retention, acute kidney injury and failure to thrive. HOSPITAL COURSE: Upon admission to the [facility] he was maintained on IV fluids and a Carrillo catheter was placed. Dr. Godwin of Urology evaluated the patient and made recommendations to maintain the Carrillo catheter in place for the next 48-72 hours , after which point it may be removed for a spontaneous voiding trial. The patient was also evaluated by Dr. Ancelmo Tucker after CT imaging in the ED demonstrate multiple pleural based lung nodules. The patient underwent successful biopsy of the nodule with no complications noted. Given the concern for metastatic disease, Dr. Covarrubias of Hematology/Oncology was consulted. Preliminary reports of the lung biopsy were suggestive of a primary pulmonary malignancy. As such, arrangements were made for continued care with Dr. Covarrubias. The remainder of the patient's hospital course was largely unremarkable and he was noted to have resolution of his acute kidney injury and urinary retention. He also reported increased appetite however reported that he was still quite weak. After evaluation with PT he was transferred to the TCU for continued strengthening exercises. CONDITION: Guarded. DISPOSITION: TCU. DISCHARGE MEDICATIONS: Heparin 5000 mg SC q. 8 hours, Aspirin 81 mg p.o. daily, Ibuprofen 800 mg p.o. t.i.d., Flomax 0.4 mg p.o. daily and Ambien 5 mg p.o. at bedtime. FOLLOWUP: The patient will be followed by his PMD and the consultants while on the TCU. Alessio Yang MD [facility]
--- NOTE | 2018-04-05 13:36 | PQF SEPSIS ---
04/04/18 Dr. Alessio Yang, ID physician documents "severe sepsis" on his note of 04/03 but is not documented elsewhere. Was sepsis ruled out, ruled in, other, undetermined? Thank you. Clarification of your documentation is requested to better reflect the severity of illness and intensity of treatment of your patient. Indicators present [] Temp < 96.8 or > 100.4 [] WBC count > 12,000/mm3 or <000/mm3 or 10% immature neutrophils [] Heart Rate > 90 [] Respiratory Rate > 20 [] Fever or hypothermia [] Chills [] Positive blood cultures [] Hypotension [] Metabolic acidosis (Elevated lactate level, anion gap or reduced blood pH) [] Acute confusion /Altered Mental Status [] Shock [] Other: [] Location in the medical record that reflects the above clinical findings: [] Treatment Provided: [] PHYSICIAN'S RESPONSE Based on your medical judgment of the clinical indicators outlined above, are you treating this patient for a known or suspected: [] Sepsis / Septicemia Please specify organism if known [] [x] SIRS (Systemic Inflammatory Response Syndrome) [] Severe Sepsis (Sepsis with Associated Organ Dysfunction) [] Fever of Unknown Origin [] Other, please indicate: [] [] If Unable to Determine, please check the box, sign and date. Present On Admission (POA) Indicator: [x] Present at the time of admission [] Not present at the time of admission [] Clinically Undetermined In responding to this query, please exercise your independent professional judgment. The fact that a question is asked does not imply that any particular answer is desired or expected. Thank you for your clarification on this documentation. If you have any questions please call:[ ] * Thank you, [ ] senior benefits specialist [facility]
== END 2018-04-04 15:56 | DRG 683 ==
LOC: ED 16:19 → ERH 22:55 → 5RNO 04-02 02:10
PROVIDERS: ADMIT Student in an Organized Health Care Education/Training Program; ATTEND Student in an Organized Health Care Education/Training Program
PROC: BB24ZZZ Computerized Tomography (CT Scan) of Bilateral Lungs (ICD-10-PCS; 2018-04-03)
PROC: 0BBF3ZX Excision of Right Lower Lung Lobe, Percutaneous Approach, Diagnostic (ICD-10-PCS; principal; 2018-04-03 09:30)
DX: N17.9 Acute kidney failure, unspecified (principal); R64 Cachexia; R65.10 Systemic inflammatory response syndrome (SIRS) of non-infectious origin without acute organ dysfunction; C78.01 Secondary malignant neoplasm of right lung; N12 Tubulo-interstitial nephritis, not specified as acute or chronic; E86.0 Dehydration; R62.7 Adult failure to thrive; Z85.46 Personal history of malignant neoplasm of prostate; Z92.3 Personal history of irradiation; D64.9 Anemia, unspecified; E78.5 Hyperlipidemia, unspecified; I10 Essential (primary) hypertension; I25.10 Atherosclerotic heart disease of native coronary artery without angina pectoris; J44.9 Chronic obstructive pulmonary disease, unspecified; N19 Unspecified kidney failure; R53.81 Other malaise; R53.83 Other fatigue; R63.4 Abnormal weight loss; F17.210 Nicotine dependence, cigarettes, uncomplicated; Z95.1 Presence of aortocoronary bypass graft; Z95.5 Presence of coronary angioplasty implant and graft; N28.1 Cyst of kidney, acquired; M43.06 Spondylolysis, lumbar region; B95.7 Other staphylococcus as the cause of diseases classified elsewhere

== ENCOUNTER 2018-04-04 16:03 | Inpatient (IN) | payer MEDICARE ==
[2018-04-04 20:46] VITALS: BMI 15.3
[2018-04-04] MEDS ORDERED: Pneumococcal 23-Valent Vaccine IM ONE (20:47)
--- NOTE | 2018-04-05 13:36 | HP ---
HISTORY OF PRESENT ILLNESS: The patient is an 82 year old man with a past medical history of prostate cancer s/p radiation therapy and COPD who presented for evaluation of a 3 week history of progressively worsening low back pain (which became acutely worse over the preceding 3 days), poor appetite and weight loss. The patient was initially admitted to the [facility] and workup during the hospitalization demonstrated multiple pulmonary nodules with preliminary biopsy reports demonstrating primary pulmonary cancer (histology is still pending). After treatment of his acute medical issues, which included urinary retention, acute kidney injury and anemia, the patient was transferred to the TCU for continued physical therapy. PAST MEDICAL HISTORY: As per HPI, also hypertension and CAD s/p CABG. PAST SURGICAL HISTORY: As per HPI. ALLERGIES: NKDA. MEDICATIONS: Lisinopril/HCTZ 20/25 mg p.o. daily. FAMILY HISTORY: Significant for COPD and hypertension. SOCIAL HISTORY: The patient reports an active [id number] smoking history and social alcohol use. He denies illicit drug abuse. REVIEW OF SYSTEMS: Positive for poor appetite, weight loss, back pain, increased urinary frequency , nocturia and week stream. Negative for fevers, chills, rigors, hematuria, melena, hematochezia or hemoptysis. PHYSICAL EXAMINATION VITAL SIGNS: Temperature 98, pulse 79, blood pressure 139/79, respiratory rate 20, oxygen saturation 99% on 2 liters nasal cannula. GENERAL: A cachectic, chronically ill appearing man, lying in bed in no apparent distress. HEENT: PERRL. EOMI. No scleral icterus. Mild conjunctival pallor is noted. NECK: No JVD. LUNGS: Clear to auscultation. CARDIOVASCULAR: Regular rate and rhythm. Normal S1 and S2. ABDOMEN: Normoactive bowel sounds. Soft, nontender, and nondistended. EXTREMITIES: No edema. NEUROLOGIC: Awake, alert and oriented x 3. No focal motor deficits. LABORATORY DATA: No new labs. ASSESSMENT: The patient is an 82 year old man with a past medical history of prostate cancer s/p radiation therapy, CAD s/p CABG, HTN and severe COPD who presented with progressively worsening low back pain, urinary retention and failure to thrive and who was found to have multiple pulmonary nodules with initial pathology report suggestive of primary pulmonary malignancy. PLAN: 1. Pulmonary lesions with initial pathology report suggestive of primary pulmonary malignancy. Input from Dr. Covarrubias of Hematology Oncology greatly appreciated. We will await final pathology reports so as to determine treatment course. 2. Low back pain, etiology likely musculoskeletal in nature, resolved. Continue Motrin 800 mg p.o. t.i.d. p.r.n. pain. Imaging studies repeated and there is no evidence of lytic lesions or metastatic disease. Continue with PT. 3. Acute urinary retention, resolved. We will discontinue the Carrillo catheter and monitor the patient's spontaneous voiding. We will start Flomax 0.4 mg p.o. daily. 4. Acute kidney injury, resolved. 5. History of prostate cancer s/p radiation therapy. A repeat PSA level is satisfactory and there is no evidence of recurrence. 6. Iron deficiency anemia. In the setting of an elevated CEA, the patient will likely benefit from GI evaluation. We will make arrangements for outpatient followup. 7. CAD s/p CABG. Continue Aspirin 81 mg p.o. daily. 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 8. COPD. Continue supplemental oxygen and bronchodilators as needed. We will consult Dr. Garcia of Pulmonary and Critical Care Medicine to assess the need for home oxygen therapy. 9. Hypertension. The patient remains off antihypertensives and with stable hemodynamics. 10. Failure to thrive. Continue to encourage p.o. intake. 11. Prophylaxis. GI prophylaxis is not indicated as the patient is eating. Continue with heparin for DVT prophylaxis. CODE STATUS: Full code. Alessio Yang MD [facility]
--- NOTE | 2018-04-05 16:13 | CON ---
DATE: 04/05/2018 PULMONARY CONSULTATION REASON FOR CONSULTATION: Chronic obstructive pulmonary disease. REFERRING PHYSICIAN: Alessio Yang MD HISTORY OF PRESENT ILLNESS: The patient is an 82-year-old male, with past medical history significant for chronic obstructive pulmonary disease, positive extensive smoking history - still smokes, coronary artery disease, status post open heart surgery, history of prostate cancer ,status post radiation therapy, hypertension, hyperlipidemia, who originally presented to [facility] - originally on 04/01/2018 - with main complaint of acute onset of left lower back pain. In the emergency room, the patient was noted to have a urinary tract infection. He was thus admitted for additional evaluation. The patient did very well on the acute care side of [facility], and was just transferred to the Transitional Unit. I was asked to evaluate this patient because of possible need for home oxygen. The patient is not short of breath at rest. He does have chronic dyspnea on exertion. He also states to a chronic cough with occasional sputum production - unchanged. There is no history of chest pain, coughing up of blood, or chest pain - made worse with deep respirations. There is no history of temperatures, chills or infectious exposure. There is no history of night sweats. There is a history of weight loss with decreased appetite over the past year. No history of leg or calf pains. No history of syncope or diaphoresis. No history of recent travel or trauma. REVIEW OF SYSTEMS: No history of nausea, vomiting or diarrhea. No new neurologic or musculoskeletal complaints. Rest of the review of systems is negative. ALLERGIES: NO KNOWN ALLERGIES. SOCIAL HISTORY: Positive for extensive tobacco usage - still smokes. No alcohol. FAMILY HISTORY: No inheritable diseases. HOME MEDICATIONS: Include Ambien, Zofran, Motrin, heparin and aspirin. PHYSICAL EXAMINATION GENERAL: The patient appears comfortable this morning. He is not short of breath at rest. VITAL SIGNS: Temperature is 98.4, pulse is 79, respirations 18, blood pressure 131/79. Oxygen saturation on nasal cannula is 95%. HEENT: Normocephalic, atraumatic. No JVD. CARDIOVASCULAR: Systolic ejection murmur at the lower left sternal border. No S3 gallop. LUNGS: Decreased breath sounds at the bases. Minimal bilateral rhonchi. No wheezing. EXTREMITIES: No clubbing, cyanosis or edema. Calves are nontender to palpation. GI: Abdomen is soft, nontender and nondistended. Bowel sounds are positive. SKIN: No acute rash. NEUROLOGIC: Limited at the present time. PERTINENT LABORATORY DATA: CAT scan of the chest, abdomen and pelvis was done on 04/01/2018. There are multiple pleural-based lung masses suspicious for lung cancer/metastasis. There is no significant lymphadenopathy. IMPRESSION: 1. Probable lung cancer. 2. Advanced chronic obstructive pulmonary disease. 3. Mild anemia. 4. Status post urinary tract infection. PLAN: The patient presented to [facility] - originally on 04/01/2018 - with left lower back pain. Subsequent evaluation revealed a new urinary tract infection. The patient was thus admitted for additional evaluation. I did discuss the case with Dr. Yang at length. The CAT scan is noted above. The patient did have a CAT scan guided lung biopsy on 04/03/2018. Preliminary results are positive for cancer. We are awaiting the cell type. On physical exam, there is mild bronchospasm noted. The patient is currently on no pulmonary medications at the present time. I will start the patient on Brovana and inhaled Pulmicort for now. Inputs by Genitourinary and Oncology are noted. The clinical status of the patient is certainly improved - compared to his initial status. However, unfortunately, the future status/prognosis for this patient does appear very guarded/poor. Again, I did discuss the case with Dr. Yang at length. Thank you very much for this pulmonary consultation. Solis Garcia MD [facility]
[2018-04-05] MEDS: Budesonide 0.5 mg/2 ml Inhal Susp UD IH SCH (21:05)
[2018-04-05] MEDS: Arformoterol 15 mcg/2 ml Inh Sol IH SCH (21:05)
[2018-04-05 22:23] LABS: HEMOGLOBIN 9.9 g/dL (14.0-18.0); MEAN CELL VOLUME 92.1 fl (80.0-105.0); MEAN CORPUSCULAR HGB CONC 32.6 g/dl (31.0-37.0); MEAN PLATELET VOLUME 8.9 fl (7.0-11.0); RBC 3.3 10^6/uL (3.5-6.1); RED CELL DISTRIBUTION WIDTH 13.3 % (11.5-14.5); WHITE BLOOD COUNT 11.6 10^3/ul (4.5-11.0)
--- NOTE | 2018-04-06 02:23 | CP.PCM.PN ---
Subjective - Date & Time of Evaluation Date of Evaluation: 04/06/18 Time of Evaluation: 02:22 - Subjective Subjective: # 14 Cou de catheter was inserted in urethra with some difficulty. Objective - Vital Signs/Intake and Output Vital Signs (last 24 hours): Temp Pulse Resp BP Pulse Ox 98.0 F 85 19 104/70 99 04/05/18 09:37 04/05/18 09:37 04/05/18 09:37 04/05/18 09:37 04/05/18 09:37 Intake and Output: 04/05/18 04/06/18 18:59 06:59 Intake Total 420 Output Total 800 800 Balance -800 -380 - Medications Medications: Current Medications Arformoterol Tartrate (Brovana) 15 mcg IH [id number] [facility] Last Admin: 04/05/18 21:05 Dose: 15 mcg Aspirin (Aspirin Chewable) 81 mg PO 0800 [facility] PRN Reason: Protocol Last Admin: 04/05/18 08:15 Dose: 81 mg Budesonide (Pulmicort Respules) 0.5 mg IH [id number] [facility] Last Admin: 04/05/18 21:05 Dose: 0.5 mg Heparin Sodium (Porcine) (Heparin) 5,000 units SC Q8 [facility] PRN Reason: Protocol Last Admin: 04/05/18 22:31 Dose: 5,000 units Ibuprofen (Motrin Tab) 800 mg PO TID [facility] PRN Reason: Protocol Last Admin: 04/05/18 17:14 Dose: 800 mg Ondansetron HCl (Zofran Inj) 4 mg IVP Q6H PRN; Protocol PRN Reason: Nausea/Vomiting Tamsulosin HCl (Flomax) 0.4 mg PO 1830 [facility] Last Admin: 04/05/18 17:35 Dose: 0.4 mg Zolpidem Tartrate (Ambien) 5 mg PO HS PRN; Protocol PRN Reason: Insomnia Last Admin: 04/06/18 00:31 Dose: 5 mg - Labs Labs: 04/05/18 22:00
[2018-04-06] MEDS: Budesonide 0.5 mg/2 ml Inhal Susp UD IH SCH ×2 (07:15→21:02)
[2018-04-06] MEDS: Arformoterol 15 mcg/2 ml Inh Sol IH SCH ×2 (07:15→21:02)
--- NOTE | 2018-04-06 07:46 | CON ---
DATE: 04/05/2018 LOCATION: The patient is in bed, seen earlier today in room 315, in Transitional Care. CHIEF COMPLAINT: Weakness. HISTORY OF PRESENT ILLNESS: This is an 82-year-old male who has a history of prostate cancer status post radiation, hypertension, dyslipidemia, chronic obstructive lung disease, coronary artery disease and a long history of smoking, was admitted with chronic back pain, was found to have Staphylococcus epidermidis in the urine culture, also had found a pulmonary nodule. He has had a right lung biopsy CAT scan directed, pathology report is pending. Infectious Disease consultation was requested. The patient was treated with vancomycin. Repeat urine cultures are negative. At this time, the patient has just weakness. No fevers, no chills. No nausea, no vomiting. No chest pain. Back pain is improved. PAST MEDICAL HISTORY: Significant for coronary artery disease, prostate cancer, hypertension, dyslipidemia, chronic obstructive lung disease, a history of smoking. PAST SURGICAL HISTORY: Significant for cardiac catheterization with stent, also had a coronary artery bypass graft. ALLERGIES: THE PATIENT HAS NO KNOWN ALLERGIES. MEDICATIONS: Reviewed. PHYSICAL EXAMINATION: GENERAL: On exam, patient is in bed, in no acute distress. VITAL SIGNS: With a temperature of 98, blood pressure is 104/70, respiratory rate of 20, heart rate of 79. HEENT: Unremarkable. NECK: Supple. LUNGS: Have decreased breath sounds. HEART: Normal S1 and S2. ABDOMEN: Soft, nontender. No rebound, no guarding. No masses. LABORATORY DATA: Reveals a urinalysis with 10 to 15 wbc's. The chemistries reveals a BUN of 19 and creatinine is 0.9. White count is reported to be 12,900. ASSESSMENT AND PLAN: This is an 82-year-old male with prostate cancer, coronary artery disease. Patient has had a history of radiation for prostate cancer, history of hypertension, dyslipidemia, chronic obstructive lung disease, long-time smoker, now with systemic inflammatory response syndrome, Gram-positive cocci identified as Staphylococcus epidermidis in the urine. Blood cultures negative, and repeat urine cultures negative. The patient had received vancomycin and status post right lung biopsy, awaiting for pathology report from the lung and at this time, the patient is off of antibiotics. We will repeat the WBC count and follow the patient's WBC's, and currently no further need for antibiotics at this point and we will follow with you. The patient is at risk for developing nosocomial infections. Atilio Jenkins MD
--- NOTE | 2018-04-06 07:47 | PN ---
DATE: 04/06/2018 PULMONARY NOTE SUBJECTIVE: The patient appears comfortable this morning. He is not short of breath at rest. PHYSICAL EXAMINATION VITAL SIGNS: Temperature is 98.5, pulse 87, respirations 18, blood pressure 121/79. Oxygen saturation on room air - 92%. Oxygen saturation on nasal cannula - 99%. HEENT: Normocephalic, atraumatic. No JVD. CARDIOVASCULAR: Systolic ejection murmur at the lower left sternal border. No S3 gallop. LUNGS: Improved breath sounds at the bases. Less rhonchi. No wheezing. EXTREMITIES: No clubbing, cyanosis or edema. Calves are nontender to palpation. GI: Abdomen is soft, nontender and nondistended. Bowel sounds are positive. SKIN: No acute rash. NEUROLOGIC: Limited at the present time. IMPRESSION: 1. Probable lung cancer. 2. Advanced chronic obstructive pulmonary disease. 3. Mild anemia. 4. Status post urinary tract infection. PLAN: The patient appears comfortable this morning. He is not short of breath at rest. He does state to feeling much better overall. On physical exam, his bronchospasm is certainly less. In addition, the alveolar-arterial gradient is also less. I will continue with the current nebulizer treatments and inhaled steroids for now. The patient also states that he is much less short of breath on exertion. We are still awaiting the lung biopsy pathology results. Input by Dr. Covarrubias (Oncology) is noted. Input by Infectious Disease (Dr. Jenkins) is also noted. The clinical status of the patient is certainly improved - compared to his initial status. However, unfortunately, his future status/prognosis does remain very guarded at best/poor. I will discuss the above with the attending physician. Solis Garcia MD [facility]
--- NOTE | 2018-04-06 12:21 | PN ---
DATE: 04/06/2018 LOCATION: The patient is in TICU room 315, bed 1. SUBJECTIVE: He states he coughed up a little bit of blood yesterday evening and is now getting better. He did have a lung biopsy by Dr. Ancelmo Tucker. Path reports are pending. PHYSICAL EXAMINATION: VITAL SIGNS: Temperature of 98.5, pulse rate of 87, blood pressure 121/79, O2 saturation of 92% on room air. HEENT: Negative. NECK: Supple with a full range of motion. LUNGS: Shows a few scattered rhonchi. HEART: Regular rate and rhythm. ABDOMEN: Benign. NEUROLOGIC: There are no focal motor deficits. As previously stated, pathology report is pending. Based on the report, further therapy will be indicated. Edis Yang MD
--- NOTE | 2018-04-06 19:22 | CP.PCM.PN ---
Subjective - Date & Time of Evaluation Date of Evaluation: 04/06/18 Time of Evaluation: 09:35 - Subjective Subjective: No fevers, not in distress. Objective - Vital Signs/Intake and Output Vital Signs (last 24 hours): Temp Pulse Resp BP Pulse Ox 98.5 F 87 18 121/79 92 L 04/06/18 05:48 04/06/18 05:48 04/06/18 05:48 04/06/18 05:48 04/06/18 05:48 Intake and Output: 04/06/18 04/06/18 06:59 18:59 Intake Total 420 Output Total 1950 Balance -1530 - Medications Medications: Current Medications Arformoterol Tartrate (Brovana) 15 mcg IH [id number] [facility] Last Admin: 04/06/18 07:15 Dose: 15 mcg Aspirin (Aspirin Chewable) 81 mg PO 0800 [facility] PRN Reason: Protocol Last Admin: 04/06/18 07:57 Dose: 81 mg Budesonide (Pulmicort Respules) 0.5 mg IH [id number] [facility] Last Admin: 04/06/18 07:15 Dose: 0.5 mg Heparin Sodium (Porcine) (Heparin) 5,000 units SC Q8 [facility] PRN Reason: Protocol Last Admin: 04/06/18 05:36 Dose: 5,000 units Ibuprofen (Motrin Tab) 800 mg PO TID [facility] PRN Reason: Protocol Last Admin: 04/06/18 07:57 Dose: 800 mg Ondansetron HCl (Zofran Inj) 4 mg IVP Q6H PRN; Protocol PRN Reason: Nausea/Vomiting Tamsulosin HCl (Flomax) 0.4 mg PO 1830 [facility] Last Admin: 04/05/18 17:35 Dose: 0.4 mg Zolpidem Tartrate (Ambien) 5 mg PO HS PRN; Protocol PRN Reason: Insomnia Last Admin: 04/06/18 00:31 Dose: 5 mg - Labs Labs: 04/05/18 22:00 - Constitutional Appears: Non-toxic, Chronically Ill - Head Exam Head Exam: NORMAL INSPECTION - Neck Exam Neck Exam: absent: Meningismus - Respiratory Exam Respiratory Exam: Decreased Breath Sounds - Cardiovascular Exam Cardiovascular Exam: +S1, +S2 - GI/Abdominal Exam GI & Abdominal Exam: Soft. absent: Tenderness Assessment and Plan - Assessment and Plan (Free Text) Plan: Assessment Systemic Inflammatory response syndrome, consider due to acute musculoskeletal pain on top of probable metastatic prostate cancer asymptomatic bacteriuria with Staph epidermidis CAD S/P CABG prostate CA S/P radiation therapy HTN dyslipidemia significant smoking history Plan continue to monitor off antibiotics since he is at risk for nosocomial infections overall prognosis is poor
--- NOTE | 2018-04-07 07:57 | PN ---
DATE: 04/07/2018 PULMONARY NOTE SUBJECTIVE: The patient appears comfortable this morning. He is not short of breath at rest. OBJECTIVE: VITAL SIGNS (last noted in the computer): Temperature is 98.5, pulse 86, respirations 18/20, blood pressure 114/70. Oxygen saturation on room air is 93%. Oxygen saturation on nasal cannula is 99%. HEENT: Normocephalic, atraumatic. No JVD. CARDIOVASCULAR: Systolic ejection murmur at the lower left sternal border. No S3 gallop. LUNGS: Minimal/less rhonchi. No wheezing. EXTREMITIES: No clubbing, cyanosis or edema. Calves are nontender to palpation. GI: Abdomen is soft, nontender and nondistended. Bowel sounds are positive. SKIN: No acute rash. NEUROLOGIC: Exam limited at the present time. IMPRESSION: 1. Probable lung cancer. 2. Advanced chronic obstructive pulmonary disease. 3. Mild anemia. 4. Status post urinary tract infection. PLAN: The patient appears comfortable this morning. He is not short of breath at rest. He has less dyspnea on exertion. He does state to feeling much better overall. On physical exam, his bronchospasm is less. In addition, the alveolar-arterial gradient is also less. I will continue with the current nebulizer treatments and inhaled steroids for now. I did meet with Dr. Wagoner (Pathology) yesterday at length. The pathology does appear that it is positive for cancer, but we are awaiting the final results/stains. Input by Infectious Disease (Dr. Reyna) is also noted. Clinical status of the patient is certainly improved - compared to last week. However, again, his future status/prognosis does remain very guarded at best. I will discuss the above with the attending physician. Solis Garcia MD WAYNE
[2018-04-07] MEDS: Budesonide 0.5 mg/2 ml Inhal Susp UD IH SCH ×2 (08:07→19:59)
[2018-04-07] MEDS: Arformoterol 15 mcg/2 ml Inh Sol IH SCH ×2 (08:07→19:59)
--- NOTE | 2018-04-07 08:39 | PN ---
SUBJECTIVE: The patientwas seen and examined at bedside on the TCU. No acute events overnight. He remains afebrile and hemodynamically stable. This morning he feels okay and offers no complaints. OBJECTIVE: VITAL SIGNS: Temperature 98, pulse 80, blood pressure 105/72, respiratory rate 18, oxygen saturation 93% on room air. GENERAL: A cachectic, chronically ill-appearing man, sitting up in bed in no apparent distress. HEENT: PERRL, EOMI. No scleral icterus. Mild conjunctival pallor is noted. NECK: No JVD. LUNGS: Clear to auscultation. CARDIOVASCULAR: Regular rate and rhythm. Normal S1 and S2. ABDOMEN: Normoactive bowel sounds. Soft, nontender and nondistended. GENITOURINARY: Carrillo catheter in place. EXTREMITIES: No edema. NEUROLOGIC: Awake, alert and oriented x 3. No focal motor deficits. LABORATORY DATA: No new labs. ASSESSMENT: The patient is an 82 year old man with a past medical history of prostate cancer s/p radiation therapy, CAD s/p CABG, HTN and severe COPD who was initially admitted for KEIRA, urinary retention and failure to thrive and his inpatient workup disclosing multiple pulmonary lesions with initial pathology reports demonstrating primary pulmonary malignancy who was transferred to the TCU for continued PT. PLAN: 1. Pulmonary lesions with initial pathology report suggestive of primary pulmonary malignancy. Input from Dr. Covarrubias of Hematology Oncology greatly appreciated. We are waiting the final pathology reports to determine the course of treatment. 2. Low back pain, etiology likely musculoskeletal in nature, resolved. Continue Motrin 800 mg p.o. t.i.d. p.r.n. pain. Imaging studies demonstrated no evidence of lytic lesions or metastatic disease. 3. Acute urinary retention s/p failed spontaneous voiding trial s/p Carrillo reinsertion. Continue Flomax 0.4 mg p.o. daily and maintain Carrillo catheter in place pending outpatient urologic followup. 4. Acute kidney injury, resolved. 5. History of prostate cancer s/p radiation therapy. A repeat PSA level satisfactory. There is no evidence of recurrence. 6. Iron-deficiency anemia. The patient will benefit from an outpatient GI evaluation particularly given his elevated CEA. 7. CAD s/p CABG. Continue Aspirin 81 mg p.o. daily. 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 8. COPD. Input from Dr. Garcia appreciated. Continue supplemental oxygen and bronchodilators as needed. We are assessing the need for home oxygen therapy. 9. Hypertension. BP remains stable off antihypertensives. We will continue to monitor and initiate antihypertensives as needed. 10. Failure to thrive. Continue to encourage p.o. intake. 11. Prophylaxis. GI prophylaxis is not indicated as the patient is eating. Continue heparin for DVT prophylaxis. CODE STATUS: Full code. Alessio Yang MD MTDJose
--- NOTE | 2018-04-07 12:17 | CP.PCM.PN ---
Subjective - Date & Time of Evaluation Date of Evaluation: 04/07/18 Time of Evaluation: 10:55 - Subjective Subjective: No fevers, not in distress. Objective - Vital Signs/Intake and Output Vital Signs (last 24 hours): Temp Pulse Resp BP Pulse Ox 98.5 F 86 20 114/70 93 L 04/06/18 16:00 04/06/18 16:21 04/06/18 16:00 04/06/18 16:00 04/06/18 16:21 Intake and Output: 04/07/18 04/07/18 06:59 18:59 Intake Total 600 Output Total 1100 Balance -500 - Medications Medications: Current Medications Arformoterol Tartrate (Brovana) 15 mcg IH [id number] [facility] Last Admin: 04/07/18 08:07 Dose: 15 mcg Aspirin (Aspirin Chewable) 81 mg PO 0800 [facility] PRN Reason: Protocol Last Admin: 04/07/18 07:57 Dose: 81 mg Budesonide (Pulmicort Respules) 0.5 mg IH [id number] [facility] Last Admin: 04/07/18 08:07 Dose: 0.5 mg Heparin Sodium (Porcine) (Heparin) 5,000 units SC Q8 [facility] PRN Reason: Protocol Last Admin: 04/07/18 05:48 Dose: 5,000 units Ibuprofen (Motrin Tab) 800 mg PO 0800,1200,1800 [facility] PRN Reason: Protocol Last Admin: 04/07/18 07:57 Dose: 800 mg Ondansetron HCl (Zofran Inj) 4 mg IVP Q6H PRN; Protocol PRN Reason: Nausea/Vomiting Tamsulosin HCl (Flomax) 0.4 mg PO 1830 [facility] Last Admin: 04/06/18 17:37 Dose: 0.4 mg Zolpidem Tartrate (Ambien) 5 mg PO HS PRN; Protocol PRN Reason: Insomnia Last Admin: 04/06/18 21:33 Dose: 5 mg - Labs Labs: 04/05/18 22:00 - Constitutional Appears: Chronically Ill - Head Exam Head Exam: NORMAL INSPECTION - Respiratory Exam Respiratory Exam: Decreased Breath Sounds - Cardiovascular Exam Cardiovascular Exam: +S1, +S2 - GI/Abdominal Exam GI & Abdominal Exam: Soft. absent: Tenderness Assessment and Plan - Assessment and Plan (Free Text) Plan: Assessment S/P Systemic Inflammatory response syndrome, consider due to acute musculoskeletal pain on top of probable metastatic prostate cancer asymptomatic bacteriuria with Staph epidermidis CAD S/P CABG prostate CA S/P radiation therapy HTN dyslipidemia significant smoking history Plan continue to monitor off antibiotics since he is at risk for hospital-acquired infections overall prognosis is poor
[2018-04-08] MEDS: Arformoterol 15 mcg/2 ml Inh Sol IH SCH ×2 (07:32→21:22)
[2018-04-08] MEDS: Budesonide 0.5 mg/2 ml Inhal Susp UD IH SCH ×2 (07:32→21:22)
--- NOTE | 2018-04-08 13:45 | CP.PCM.PN ---
Subjective - Date & Time of Evaluation Date of Evaluation: 04/08/18 Time of Evaluation: 11:40 - Subjective Subjective: Afebrile, not in distress. Objective - Vital Signs/Intake and Output Vital Signs (last 24 hours): Temp Pulse Resp BP Pulse Ox 97.8 F 98 H 20 112/66 92 L 04/07/18 13:41 04/07/18 13:46 04/07/18 13:41 04/07/18 13:41 04/07/18 13:46 Intake and Output: 04/08/18 04/08/18 06:59 18:59 Intake Total 240 Output Total 1200 Balance -960 - Medications Medications: Current Medications Arformoterol Tartrate (Brovana) 15 mcg IH [id number] [facility] Last Admin: 04/08/18 07:32 Dose: 15 mcg Aspirin (Aspirin Chewable) 81 mg PO 0800 [facility] PRN Reason: Protocol Last Admin: 04/08/18 07:53 Dose: 81 mg Budesonide (Pulmicort Respules) 0.5 mg IH [id number] [facility] Last Admin: 04/08/18 07:32 Dose: 0.5 mg Heparin Sodium (Porcine) (Heparin) 5,000 units SC Q8 [facility] PRN Reason: Protocol Last Admin: 04/08/18 06:01 Dose: 5,000 units Ibuprofen (Motrin Tab) 800 mg PO 0800,1200,1800 [facility] PRN Reason: Protocol Last Admin: 04/08/18 07:53 Dose: 800 mg Ondansetron HCl (Zofran Inj) 4 mg IVP Q6H PRN; Protocol PRN Reason: Nausea/Vomiting Tamsulosin HCl (Flomax) 0.4 mg PO 1830 [facility] Last Admin: 04/07/18 17:42 Dose: 0.4 mg Zolpidem Tartrate (Ambien) 5 mg PO HS PRN; Protocol PRN Reason: Insomnia Last Admin: 04/07/18 21:53 Dose: 5 mg - Labs Labs: 04/05/18 22:00 - Constitutional Appears: Chronically Ill - Head Exam Head Exam: NORMAL INSPECTION - Neck Exam Neck Exam: absent: Meningismus - Respiratory Exam Respiratory Exam: Decreased Breath Sounds - Cardiovascular Exam Cardiovascular Exam: +S1, +S2 - GI/Abdominal Exam GI & Abdominal Exam: Soft. absent: Tenderness Assessment and Plan - Assessment and Plan (Free Text) Plan: Assessment S/P Systemic Inflammatory response syndrome, consider due to acute musculoskeletal pain on top of probable metastatic prostate cancer asymptomatic bacteriuria with Staph epidermidis CAD S/P CABG prostate CA S/P radiation therapy HTN dyslipidemia significant smoking history Plan continue to monitor off antibiotics since he is at risk for healthcare- associated infections overall prognosis is poor
[2018-04-09] MEDS: Arformoterol 15 mcg/2 ml Inh Sol IH SCH ×2 (07:03→21:00)
[2018-04-09] MEDS: Budesonide 0.5 mg/2 ml Inhal Susp UD IH SCH ×2 (07:03→21:00)
--- NOTE | 2018-04-09 08:02 | PN ---
DATE: 04/09/2018 PULMONARY NOTE SUBJECTIVE: The patient appears comfortable this morning. He is not short of breath at rest. PHYSICAL EXAMINATION: VITAL SIGNS: (Last noted in the computer): Temperature is 98.4, pulse 88, respirations 18, blood pressure 112/69. Oxygen saturation on room air is 92%. HEENT: Normocephalic, atraumatic. No JVD. CARDIOVASCULAR: Systolic ejection murmur at the lower left sternal border. No S3 gallop. LUNGS: Very minimal/less rhonchi. No wheezing. EXTREMITIES: No clubbing, cyanosis or edema. Calves are nontender to palpation. GI: Abdomen is soft, nontender and nondistended. Bowel sounds are positive. SKIN: No acute rash. NEUROLOGIC: Limited at the present time. IMPRESSION: 1. Probable lung cancer. 2. Advanced chronic obstructive pulmonary disease. 3. Mild anemia. 4. Status post urinary tract infection. PLAN: The patient appears comfortable this morning. He is not short of breath at rest. He has much less dyspnea on exertion. He does state to feeling much better overall. On physical exam, there is no significant bronchospasm noted. In addition, the alveolar-arterial gradient is also much less. I will continue with the current nebulizer treatments and inhaled steroids for now. We are still awaiting the pathology results on the CAT scan guided lung biopsy. I will meet with Dr. Wagoner (Pathology) later this morning. Clinical status of the patient is certainly improved - compared to the initial presentation. However, again, unfortunately, his future status/prognosis does remain very guarded. I will discuss the above with Dr. Yang. Solis Garcia MD WAY[facility]
--- NOTE | 2018-04-09 10:10 | PN ---
SUBJECTIVE: The patient was seen and examined at bedside on the TCU. No acute events overnight. He remains afebrile and hemodynamically stable. OBJECTIVE: VITAL SIGNS: Temperature 98.4, pulse 88, blood pressure 112/69, respiratory rate 20, oxygen saturation 93% on room air. GENERAL: A cachectic, chronically ill-appearing man, lying in bed in no apparent distress. HEENT: PERRL, EOMI. No scleral icterus. Mild conjunctival pallor is noted. NECK: No JVD. LUNGS: Clear to auscultation. CARDIOVASCULAR: Regular rate and rhythm. Normal S1 and S2. ABDOMEN: Normoactive bowel sounds. Soft, nontender and nondistended. GENITOURINARY: Carrillo catheter in place. EXTREMITIES: No edema. NEUROLOGIC: Awake, alert and oriented x 3. No focal motor deficits. LABORATORY DATA: No new labs. ASSESSMENT: The patient is an 82 year old man with a past medical history of prostate cancer s/p radiation therapy, CAD s/p CABG, HTN and severe COPD who was initially admitted for KEIRA, urinary retention and failure to thrive and whose inpatient workup demonstrated multiple pulmonary lesions with initial pathology report demonstrating primary pulmonary malignancy and who was subsequently transferred to the TCU for continued PT. PLAN: 1. Primary pulmonary malignancy, with official pathology report still pending. Input from Dr. Covarrubias greatly appreciated and the patient will require a PET scan for staging prior to initiation of therapy. 2. Low back pain, etiology musculoskeletal in nature, resolved. Continue Motrin 800 mg p.o. t.i.d. p.r.n. pain. Imaging studies reviewed and there is no evidence of lytic lesions or metastatic disease. 3. Acute urinary retention s/p failed spontaneous voiding trial s/p Carrillo reinsertion. Continue Flomax 0.4 mg p.o. daily and maintain Carrillo catheter in place pending outpatient urologic followup. 4. Acute kidney injury, resolved. 5. History of prostate cancer s/p radiation therapy. There is no evidence of recurrence and the PSA level is satisfactory. 6. Iron-deficiency anemia. We will arrange for outpatient GI followup. 7. CAD s/p CABG. Continue Aspirin 81 mg p.o. daily. 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 8. COPD. Input from Dr. Garcia appreciated. Continue supplemental oxygen and bronchodilators as needed. 9. Hypertension. Blood pressure remains stable, off antihypertensives. 10. Failure to thrive. 11. Prophylaxis. GI prophylaxis is not indicated as the patient is eating. Continue with Heparin for DVT prophylaxis. CODE STATUS: Full code. Alessio Yang MD MTDD
--- NOTE | 2018-04-09 17:07 | CP.PCM.PN ---
Subjective - Date & Time of Evaluation Date of Evaluation: 04/09/18 Time of Evaluation: 10:30 - Subjective Subjective: Comfortable on a chair, no fevers, not in distress. Objective - Vital Signs/Intake and Output Vital Signs (last 24 hours): Temp Pulse Resp BP Pulse Ox 98.4 F 88 18 112/69 92 L 04/08/18 17:00 04/08/18 17:00 04/08/18 17:00 04/08/18 17:00 04/08/18 17:00 Intake and Output: 04/09/18 04/09/18 06:59 18:59 Intake Total 480 Output Total 1350 Balance -870 - Medications Medications: Current Medications Arformoterol Tartrate (Brovana) 15 mcg IH [id number] [facility] Last Admin: 04/09/18 07:03 Dose: 15 mcg Aspirin (Aspirin Chewable) 81 mg PO 0800 [facility] PRN Reason: Protocol Last Admin: 04/08/18 07:53 Dose: 81 mg Budesonide (Pulmicort Respules) 0.5 mg IH [id number] [facility] Last Admin: 04/09/18 07:03 Dose: 0.5 mg Heparin Sodium (Porcine) (Heparin) 5,000 units SC Q8 [facility] PRN Reason: Protocol Last Admin: 04/09/18 05:52 Dose: 5,000 units Ibuprofen (Motrin Tab) 800 mg PO 0800,1200,1800 [facility] PRN Reason: Protocol Last Admin: 04/08/18 17:27 Dose: 800 mg Ondansetron HCl (Zofran Inj) 4 mg IVP Q6H PRN; Protocol PRN Reason: Nausea/Vomiting Tamsulosin HCl (Flomax) 0.4 mg PO 1830 [facility] Last Admin: 04/08/18 17:31 Dose: 0.4 mg Zolpidem Tartrate (Ambien) 5 mg PO HS PRN; Protocol PRN Reason: Insomnia Last Admin: 04/08/18 21:13 Dose: 5 mg - Labs Labs: 04/05/18 22:00 - Constitutional Appears: Non-toxic, Chronically Ill - Head Exam Head Exam: NORMAL INSPECTION - ENT Exam ENT Exam: Mucous Membranes Moist - Neck Exam Neck Exam: absent: Meningismus - Respiratory Exam Respiratory Exam: Decreased Breath Sounds - Cardiovascular Exam Cardiovascular Exam: +S1, +S2 - GI/Abdominal Exam GI & Abdominal Exam: Soft. absent: Tenderness Assessment and Plan - Assessment and Plan (Free Text) Plan: Assessment S/P Systemic Inflammatory response syndrome, consider due to acute musculoskeletal pain on top of probable metastatic prostate cancer asymptomatic bacteriuria with Staph epidermidis CAD S/P CABG prostate CA S/P radiation therapy HTN dyslipidemia significant smoking history Plan continue to monitor off antibiotics since he is at risk for nosocomial infections overall prognosis is poor
[2018-04-10] MEDS: Arformoterol 15 mcg/2 ml Inh Sol IH SCH ×2 (07:03→20:23)
[2018-04-10] MEDS: Budesonide 0.5 mg/2 ml Inhal Susp UD IH SCH ×2 (07:03→20:23)
--- NOTE | 2018-04-10 08:35 | PN ---
DATE: 04/10/2018 PULMONARY NOTE SUBJECTIVE: The patient appears very comfortable this morning. He is not short of breath at rest. PHYSICAL EXAMINATION: VITAL SIGNS: (last noted in the computer): Temperature is 98.4, pulse 81, respirations 18, blood pressure 112/60. Oxygen saturation on room air is 93%. HEENT: Normocephalic, atraumatic. No JVD. CARDIOVASCULAR: Systolic ejection murmur at the lower left sternal border. No S3 gallop. LUNGS: Very minimal/less rhonchi. No wheezing. EXTREMITIES: No clubbing, cyanosis or edema. Calves are nontender to palpation. GI: Abdomen is soft, nontender and nondistended. Bowel sounds are positive. SKIN: No acute rash. NEUROLOGIC: Limited at the present time. IMPRESSION: 1. Probable lung cancer. 2. Advanced chronic obstructive pulmonary disease. 3. Mild anemia. 4. Status post urinary tract infection. PLAN: The patient appears very comfortable this morning. He is not short of breath at rest. He is less dyspneic on exertion. He does state to feeling much better overall. On physical exam, his bronchospasm continues to resolve. In addition, the alveolar-arterial gradient is also much less. I will continue with the current nebulizer treatments and inhaled steroids for now. The patient is status post CAT scan guided lung biopsy. We are still awaiting the results. I will meet with Dr. Wagoner this morning. Clinical status of the patient is certainly improved - compared to his initial presentation. However, again, his future status/prognosis does remain very guarded. I will discuss the above with Dr. Yang. Solis Garcia MD MTDJose
--- NOTE | 2018-04-10 08:50 | PN ---
SUBJECTIVE: The patient was seen and examined at bedside on the TCU. No acute events overnight. OBJECTIVE: VITAL SIGNS: Temperature 98.4, pulse 80, blood pressure 112/70, respiratory rate 18, oxygen saturation 93% on room air. GENERAL: A cachectic, chronically ill-appearing man, lying in bed in no apparent distress. HEENT: PERRL, EOMI. No scleral icterus. Mild conjunctival pallor is noted. NECK: No JVD. LUNGS: Clear to auscultation. CARDIOVASCULAR: Regular rate and rhythm. Normal S1 and S2. ABDOMEN: Normoactive bowel sounds. Soft, nontender and nondistended. GENITOURINARY: Carrillo catheter in place draining clear, yellow urine. EXTREMITIES: No edema. NEUROLOGIC: Awake, alert and oriented x 3. No focal motor deficits. LABORATORY DATA: No new labs. ASSESSMENT: The patient is an 82 year old man with a past medical history of prostate cancer s/p radiation therapy, CAD s/p CABG, HTN and severe COPD who was initially admitted for KEIRA, urinary retention and failure to thrive and whose inpatient workup demonstrated multiple pulmonary lesions with pathology report demonstrating metastatic malignancy of urothelial origin and who was subsequently transferred to the TCU for continued PT. PLAN: 1. Metastatic malignancy of urothelial origin. After a conversation with Dr. Curry the staining of the pulmonary lesions is consistent with a urothelial origin. We will discuss with Dr. Godwin the need for a cystoscopy to evaluate for primary lesion. Input from Dr. Covarrubias appreciated. 2. Low back pain, etiology musculoskeletal in nature, resolved. Continue Motrin 800 mg p.o. t.i.d. p.r.n. pain. Imaging studies demonstrate no evidence of lytic lesions or metastatic disease. 3. Acute urinary retention s/p failed spontaneous voiding trial s/p Carrillo reinsertion. Continue Flomax 0.8 mg p.o. daily and maintain Carrillo catheter in place pending urologic followup. 4. Acute kidney injury, resolved. 5. History of prostate cancer s/p radiation therapy. Repeat PSA satisfactory. As above, we will discuss with Dr. Godwin the need for cystoscopy and further urologic evaluation given the pathology reports. 6. Iron deficiency anemia. Arrangements will be made for outpatient GI followup. 7. CAD s/p CABG. Continue Aspirin 81 mg p.o. daily. 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 8. COPD. Input from Dr. Garcia appreciated. Continue supplemental oxygen and bronchodilators as needed. 9. Hypertension. Blood pressure remains stable off antihypertensives. 10. Failure to thrive. 11. Prophylaxis. GI prophylaxis is not indicated as the patient is eating. Continue with Heparin for DVT prophylaxis. CODE STATUS: Full code. Alessio Yang MD MTDD
--- NOTE | 2018-04-10 14:57 | PN ---
DATE: 04/10/2018 REASON FOR FOLLOWUP: Metastatic cancer to the lung, likely urothelial primary. The patient is seen at bedside. Denies any active complaints. PHYSICAL EXAMINATION: VITAL SIGNS: Vitals are stable. Temp is 98.4, pulse of 80, respiratory rate of 18 and a blood pressure of 112/70, O2 sats are 93% on room air. GENERAL: The patient is cachectic-appearing, chronically ill-appearing male, sitting up in bed, in no acute distress. HEAD AND NECK: Normocephalic, atraumatic. Eyes: Pupils are equal, round and reactive to light and accommodation. Extraocular muscles are intact. There is some pallor. No icterus is noted. NECK: Supple with no adenopathy. No JVD. No thyromegaly. LUNGS: Clear to auscultation bilaterally with no rales or rhonchi. CARDIOVASCULAR: S1 and S2 are heard. ABDOMEN: Positive bowel sounds, soft, nontender and nondistended. No organomegaly is palpated. EXTREMITIES: There is no edema, clubbing or cyanosis. 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 At this point, discuss with Pathology as well as Dr. Alessio Yang. Will need Urology input with a cystoscopy to evaluate for primary lesion. I will also discuss with the patient's regarding need for chemotherapy at this point as it is metastatic carcinoma. He will need a PET CT as an outpatient to determine total extent of disease prior to beginning any chemotherapy. Await Urology evaluation at this point. Thank you for the consult. We will follow up. Josi Covarrubias MD
[2018-04-11] MEDS: Budesonide 0.5 mg/2 ml Inhal Susp UD IH SCH ×2 (07:31→19:50)
[2018-04-11] MEDS: Arformoterol 15 mcg/2 ml Inh Sol IH SCH ×2 (07:31→19:50)
--- NOTE | 2018-04-11 08:09 | PN ---
DATE: 04/11/2018 PULMONARY NOTE SUBJECTIVE: The patient appears comfortable this morning. He is not short of breath at rest. PHYSICAL EXAMINATION: VITAL SIGNS: (Last noted in the computer): Temperature is 97.3, pulse 91, respirations 16, blood pressure 116/68. Oxygen saturation on nasal cannula is 94%. HEENT: Normocephalic, atraumatic. No JVD. CARDIOVASCULAR: Systolic ejection murmur at the lower left sternal border. No S3 gallop. LUNGS: Clear bilaterally this morning. EXTREMITIES: No clubbing, cyanosis, or edema. Calves are nontender to palpation. GASTROINTESTINAL: Abdomen is soft, nontender, and nondistended. Bowel sounds are positive. SKIN: No acute rash. NEUROLOGIC: Limited at the present time. PERTINENT LABORATORY DATA: CAT scan-guided lung biopsy results: Pathology is consistent with metastatic high-grade urothelial carcinoma. IMPRESSION: 1. Urothelial cancer with lung metastasis. 2. Advanced chronic obstructive pulmonary disease. 3. Mild anemia. 4. Status post urinary tract infection. PLAN: The patient appears comfortable this morning. He is not short of breath at rest. He is much less dyspneic on exertion. He does state to feeling much better overall. On physical exam, his lungs are now clear. In addition, the alveolar-arterial gradient is much less. I will continue with the current nebulizer treatments and inhaled steroids for now. I did discuss the case with Dr. Wagoner yesterday. The pathology is noted above. Input by Dr. Covarrubias (Oncology) is also noted. Clinical status of the patient has significantly improved overall. However, again, his future status/prognosis does remain very guarded. I will discuss the above with Dr. Yang. Solis Garcia MD MTDD
--- NOTE | 2018-04-11 08:24 | PN ---
DATE: 04/10/2018 SUBJECTIVE: Patient is in bed, in no acute distress, was seen earlier this morning in room 315, nontoxic, however, chronically ill, debilitated and weak. PHYSICAL EXAMINATION: VITAL SIGNS: Temperature of 97, blood pressure is 110/70, respiratory rate of 18, heart rate of 103, saturation of 92% with a BMI of . HEENT: Temporal wasting. NECK: Supple. LUNGS: Decreased breath sounds. HEART: Normal S1 and 'S2. ABDOMEN: Soft, nontender. No rebound or guarding. LABORATORY EXAMINATION: Reveals a white count of 11,600. Review of orders reveals the patient will be off of antibiotics. Dr. Alessio Yang's note is reviewed. Dr. Garcia's progress note is reviewed and appreciated. ASSESSMENT AND PLAN: This is an 82-year-old male seen early this morning in room 315 with systemic inflammatory response syndrome, acute musculoskeletal pain on top of probable metastatic prostate cancer, asymptomatic bacteruria with Staphylococcus , coronary artery disease status post coronary bypass graft, currently off of antibiotics, afebrile, patient dyslipidemia, hypertension, dyslipidemia, significant smoking history. Prognosis is quite poor. He is at very high risk of developing nosocomial infections. Atilio Jenkins MD
[2018-04-11 10:30] VITALS: RESP 18
--- NOTE | 2018-04-11 10:48 | PN ---
SUBJECTIVE: The patient was seen and examined at the bedside on the TCU. No acute events overnight. OBJECTIVE: VITAL SIGNS: Temperature 97.8, pulse 80, blood pressure 116/70, respiratory rate 93% on room air. GENERAL: A cachectic, chronically ill-appearing man, lying in bed in no apparent distress. HEENT: PERRL, EOMI. No scleral icterus. Mild conjunctival pallor is noted. NECK: No JVD. LUNGS: Clear to auscultation. CARDIOVASCULAR: Regular rate and rhythm. Normal S1 and S2. ABDOMEN: Normoactive bowel sounds. Soft, nontender and nondistended. GENITOURINARY: Carrillo catheter in place draining clear, yellow urine. EXTREMITIES: No edema. NEUROLOGIC: Awake, alert and oriented x 3. No focal motor deficits. LABORATORY DATA: No new labs. ASSESSMENT: The patient is an 82 year old man with a past medical history of prostate cancer s/p radiation therapy, CAD s/p CABG, HTN and severe COPD who was initially admitted for KEIRA, urinary retention and failure to thrive and whose inpatient workup found the patient to have metastatic malignancy of urothelial origin and who was subsequently transferred to the TCU for continued PT. PLAN: 1. Metastatic malignancy of urothelial origin. Input from Dr. Covarrubias greatly appreciated. Arrangements will be made for PET scan and further urologic evaluation with Dr. Godwin so as to identify a primary tumor. Treatment options to be discussed with Dr. Covarrubias and the family. 2. Acute urinary retention s/p failed spontaneous voiding trial s/p Carrillo reinsertion. The patient remains on Flomax 0.4 mg p.o. daily. Input from Dr. Godwin noted and appreciated and the patient will have a voiding trial performed again today and if he is unable to void spontaneously, he will require catheter reinsertion and maintenance until outpatient followup is arranged with Dr. Godwin. 3. History of prostate cancer s/p radiation therapy. A repeat PSA is satisfactory and there is no evidence of recurrence. 4. Low back pain, etiology musculoskeletal in nature, resolved. Imaging studies demonstrate no evidence of lytic lesions or metastatic disease. Continue Motrin 800 mg p.o. t.i.d. p.r.n. pain. 5. Acute kidney injury, resolved. 6. Iron deficiency anemia. Arrangements will be made for outpatient GI followup. 7. CAD s/p CABG. Continue aspirin 81 mg p.o. daily. 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 8. COPD. Input from Dr. Garcia appreciated. Continue current therapy. 9. Hypertension. Blood pressure remains stable off antihypertensives. 10. Failure to thrive. 11. Prophylaxes. GI prophylaxis is not indicated as the patient is eating. Continue with Heparin for DVT prophylaxis. CODE STATUS: Full code. Alessio Yang MD MTDD
[2018-04-11 13:58] LABS: INR 1.03 (0.93-1.08); PARTIAL THROMBOPLASTIN TIME 28.2 Seconds (25.1-36.5); PROTHROMBIN TIME 11.8 SECONDS (9.4-12.5)
[2018-04-11 17:45] VITALS: O2SAT 94
[2018-04-12 06:06] VITALS: BP 128/81; PULSE 96; TEMP 98.9
[2018-04-12] MEDS: Budesonide 0.5 mg/2 ml Inhal Susp UD IH SCH (07:08)
[2018-04-12] MEDS: Arformoterol 15 mcg/2 ml Inh Sol IH SCH (07:08)
[2018-04-12] MEDS ORDERED: Propofol 10 mg/ml Inj (20 ML) ONE (08:06)
--- NOTE | 2018-04-12 08:26 | PN ---
DATE: 04/12/2018 SUBJECTIVE: The patient is in bed in no acute distress, nontoxic. OBJECTIVE: VITAL SIGNS: On exam, temperature is 98, blood pressure is 120/80, respiratory rate of 18, heart rate of 96. HEENT: Examination is unremarkable. NECK: Supple. LUNGS: Have decreased breath sounds. HEART: Normal S1, S2. ABDOMEN: Soft, nontender. No rebound or guarding. DATA: Laboratory examination reveals a white count of 11,600, hemoglobin of 9, platelets of 335. Coagulation. Review of orders reveals the patient is off of antibiotics. Dr. Alessio Yang's note is reviewed. Dr. Garcia's note is reviewed from yesterday. ASSESSMENT AND PLAN: This is a 82-year-old male who was seen earlier this morning in room 315 with systemic inflammatory response syndrome, acute musculoskeletal pain on top of probable metastatic prostate cancer, asymptomatic bacteriuria, coronary artery disease status post coronary bypass graft, currently off of antibiotics; afebrile in a patient who has had dyslipidemia, hypertension and significant smoking history. The patient is at risk for developing nosocomial infections. Atilio Jenkins MD
--- NOTE | 2018-04-12 08:57 | PN ---
DATE: 04/12/2018 PULMONARY NOTE SUBJECTIVE: The patient appears comfortable this morning. He is not short of breath at rest. PHYSICAL EXAMINATION: VITAL SIGNS: Temperature is 98.9, pulse 96, respirations 18, blood pressure 128/81. Oxygen saturation on nasal cannula is 94%. HEENT: Normocephalic, atraumatic. No JVD. CARDIOVASCULAR: Systolic ejection murmur at the lower left sternal border. No S3 gallop. LUNGS: Clear bilaterally. EXTREMITIES: No clubbing, cyanosis or edema. Calves are nontender to palpation. GI: Abdomen is soft, nontender and nondistended. Bowel sounds are positive. SKIN: No acute rash. NEUROLOGIC: Limited at the present time. IMPRESSION: 1. Urothelial cancer with lung metastasis. 2. Advanced chronic obstructive pulmonary disease. 3. Mild anemia. 4. Status post urinary tract infection. PLAN: The patient appears comfortable this morning. He is not short of breath at rest. He is much less dyspneic on exertion. He does state to feeling much better overall. On physical exam, his lungs remain clear. In addition, the alveolar-arterial gradient is also much less. I will continue with the current nebulizer treatments and inhaled steroids for now. I did discuss the case with the night nurse at length. The night nurse stated that the patient had a very good night. The night nurse also stated that the patient is for cystoscopy with Dr. Godwin later today. Input by Dr. Covarrubias (Oncology) is also noted. Clinical status of the patient is significantly improved - compared to his initial status. However, again, his future status/prognosis does remain very guarded. I will discuss the above with the attending physician. Solis Garcia MD MTDJose
[2018-04-12] MEDS ORDERED: Phenylephrine 10 mg/ml Inj ONE (09:01)
[2018-04-12] MEDS ORDERED: Morphine 2 mg/ml ISec IVP PRN (09:52)
[2018-04-12] MEDS ORDERED: Lactated Ringer's 1,000 ML IV SCH (10:00)
--- NOTE | 2018-04-12 12:54 | DS ---
ADMITTING DIAGNOSIS: Pulmonary lesions concerning for malignancy. 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 SECONDARY DIAGNOSES: Lumbago, urinary retention s/p Carrillo catheter insertion, history of prostate cancer s/p radiation therapy (in remission), iron-deficiency anemia, CAD s/p CABG, severe COPD, HTN and failure to thrive. CONSULTATIONS: Dr. Jenkins (Infectious Disease), Dr. Covarrubias (Hematology/Oncology), Dr. Garcia (Pulmonary & Critical Care Medicine) and Dr. Godwin (Urology). IMAGING STUDIES: None. PROCEDURES: None. HISTORY OF PRESENT ILLNESS: The patient is an 82 year old man with a past medical history of prostate cancer s/p radiation therapy and COPD who presented for evaluation of a 3 week history of progressively worsening low back pain, poor appetite and weight loss. The patient was initially admitted to the [facility] and workup during the hospitalization demonstrated multiple pulmonary nodules with preliminary biopsy reports suggestive of a primary pulmonary cancer. After treatment of his acute medical issues, which included urinary retention, acute kidney injury and anemia, the patient was transferred to the TCU for continued physical therapy. HOSPITAL COURSE: While in the TCU, the patient was noted to excel in physical therapy. He reported improved appetite and was overall doing well. His pathology reports from a CT-guided lung biopsy had initially suggested a primary pulmonary malignancy, however after specialized staining it was determined to be of urothelial origin. After conferring with Dr. Godwin, the patient was scheduled for a cystoscopy to investigate for the primary malignancy. On TCU day #7 he was discharged to Same Day Surgery for his scheduled urologic procedure with the plan to discharge him home after his procedure. CONDITION: Improved but guarded. DISPOSITION: Same day surgery. DISCHARGE MEDICATIONS: Aspirin 81 mg p.o. daily. DISCHARGE INSTRUCTIONS: The patient to adhere to post cystoscopy instructions as per Dr. Godwin. FOLLOWUP: The patient to follow up with his PMD within 1 week of discharge. The patient to follow up with Dr. Covarrubias as scheduled so as to continue treatment of his newly diagnosed stage IV malignancy. The patient to follow up with Dr. Garcia and Dr. Godwin as scheduled. Alessio Yang MD MTDD
== END 2018-04-12 08:44 | disposition home or self-care (01) | DRG 945 ==
LOC: TRCU 16:03
PROVIDERS: ADMIT Student in an Organized Health Care Education/Training Program; ATTEND Student in an Organized Health Care Education/Training Program
PROC: F07Z9ZZ Gait Training/Functional Ambulation Treatment (ICD-10-PCS; principal; 2018-04-05)
PROC: F08Z4ZZ Home Management Treatment (ICD-10-PCS; 2018-04-05)
PROC: 3E0F7GC Introduction of Other Therapeutic Substance into Respiratory Tract, Via Natural or Artificial Opening (ICD-10-PCS; 2018-04-05)
DX: R53.1 Weakness (principal); C78.00 Secondary malignant neoplasm of unspecified lung; C80.1 Malignant (primary) neoplasm, unspecified; R62.7 Adult failure to thrive; I25.10 Atherosclerotic heart disease of native coronary artery without angina pectoris; I10 Essential (primary) hypertension; D50.9 Iron deficiency anemia, unspecified; J44.9 Chronic obstructive pulmonary disease, unspecified; R33.9 Retention of urine, unspecified; E78.5 Hyperlipidemia, unspecified; F17.200 Nicotine dependence, unspecified, uncomplicated; Z85.46 Personal history of malignant neoplasm of prostate; Z92.3 Personal history of irradiation; Z95.1 Presence of aortocoronary bypass graft

== ENCOUNTER 2018-04-12 07:32 | Day surgery (SDC) | payer MEDICARE ==
[2018-04-12] MEDS ORDERED: Iohexol 240 (50 ml) ONE (08:10)
[2018-04-12] MEDS ORDERED: cefTRIAXone 1 GM in NS 100 ML BAG IVPB ONE (08:55)
[2018-04-12] MEDS ORDERED: cefTRIAXone (Rocephin) 1 gm Inj ONE (08:56)
[2018-04-12 11:00] VITALS: RESP 18; TEMP 97.6
[2018-04-12 11:36] VITALS: BP 124/73; PULSE 81; O2SAT 98
--- NOTE | 2018-04-12 15:13 | OP ---
PROCEDURE DATE: 04/12/2018 PREOPERATIVE DIAGNOSES: Urothelial cancer, prostate cancer, urinary retention. POSTOPERATIVE DIAGNOSES: Urothelial cancer, prostate cancer, urinary retention. PROCEDURE: A cystoscopy, bilateral retrograde pyelograms, transurethral resection of bladder neck. ATTENDING SURGEON: Carroll Godwin MD. ANESTHESIA: General. SPECIMENS: Chips from bladder neck were sent to Pathology. DRAIN: A 22-Guinean 3-way Carrillo catheter. COMPLICATIONS: There were none. OPERATIVE FINDINGS: After informed consent was obtained, the patient was taken to the operative room and placed on the operating table. Anesthesia was then administered. The patient was placed in the dorsal lithotomy position and prepped and draped in the usual sterile fashion. The patient received intravenous antibiotics prior to start of the procedure. A 22-Guinean cystoscope was placed in the patient's urethra and advanced proximally under direct vision until the bladder was entered. A full survey inspection of bladder was then performed, which revealed no stones or papillary tumors. The bladder was heavily trabeculated with grade 3 trabeculation with multiple cellules and wide open mouth diverticulum. Very distorted anatomy, but inspection was made with 30 and 70-degree lenses and again there were no papillary tumors noted. There was some mild catheter reaction on the posterior wall. Exam of the prostatic urethra revealed a ragged whitish-colored tissue encircling the bladder neck. The patient has a history of prostate radiation years ago. There was some active bleeding from this ragged bladder neck tissue. At this point, a cone-tip catheter was passed through the cystoscope. I was able to identify at first the right ureteral orifice. The orifice was cannulated with the cone-tip catheter and a retrograde pyelogram was performed by instilling contrast through the cone-tip catheter into the ureter during real-time fluoroscopy. There was some tortuosity of the ureter noted. However, there were no obvious filling defects noted. There was no hydronephrosis. There was no filling defects noted in the upper tract as well. The system was noted to drain with no evidence of obstruction. At this point, the left ureteral orifice was cannulated. Retrograde pyelogram also was done, again which showed no evidence of obvious filling defect. The ureter was somewhat tortuous with J hooking. There was no filling defect in either of the ureter or the kidney and the system was noted to drain promptly. The films were submitted to radiology for interpretation. At this point, the 22 scope was removed and a 26-Guinean resectoscope was passed with a visualizing obturator. Using a resecting loop, the ragged tissue at the bladder neck was resected. Any bleeding points encountered were then controlled using electrocautery. The chips were irrigated out of the bladder and sent to pathology as specimen. Possibly urothelial malignancy would be found in this area given the ragged appearance of this tissue. When hemostasis was complete, the procedure was completed, the scope was removed and a 22-[place]inean 3-way Carrillo catheter was passed and placed to continuous bladder irrigation. The patient tolerated the procedure well. He was sent to the recovery room awake and in stable condition. Carroll Godwin MD
--- NOTE | 2018-04-14 10:07 | RAD ---
PROCEDURE: Retrograde pyelogram HISTORY: R/O OBSTRUCTION COMPARISON: None TECHNIQUE: Standard protocol for this study/examination. FINDINGS: Total fluoroscopic time (continuous mode) utilized during the procedure (seconds) 33.3. Total exam DLP: (mGy) 5.38. IMPRESSION: Less than 1 hr fluoroscopic time utilized during performance of the procedure.
== END 2018-04-12 12:30 | disposition home or self-care (01) ==
LOC: SDS 07:32
PROVIDERS: ATTEND Urology
DX: C67.5 Malignant neoplasm of bladder neck (principal); R33.9 Retention of urine, unspecified; I25.10 Atherosclerotic heart disease of native coronary artery without angina pectoris; I10 Essential (primary) hypertension; Z85.46 Personal history of malignant neoplasm of prostate; Z92.3 Personal history of irradiation
CPT/HCPCS: 52500; 74420; 88307; C1758 ×2; J0696; J7120; Q9966

== ENCOUNTER 2018-04-20 11:06 | Inpatient (IN) | payer MEDICARE ==
[2018-04-20] MEDS ORDERED: Albuterol-Ipratrop 3 mg / 0.5 (3 ml) UD IH STA (11:49)
--- NOTE | 2018-04-20 11:49 | ED PDOC ---
Arrival/HPI - General Chief Complaint: Weakness/Neurological Deficit Time Seen by Provider: 04/20/18 11:46 Historian: Patient - History of Present Illness Narrative History of Present Illness (Text): 04/20/18 11:46 82 year old male smoker, whose past medical history includes recent diagnosis of lung cancer (no treatment yet), who presents to the emergency department complaining of fatigue, weakness, and difficulty ambulating. Patient notes mild sob at baseline. Patient denies any fever, chills, chest pain, nausea, vomiting , diarrhea, back pain, neck pain, headache, dizziness, or any other complaints. Symptom Onset: Gradual Symptom Course: Unchanged Activities at Onset: Light Context: Home Past Medical History - Provider Review Nursing Documentation Reviewed: Yes - Infectious Disease Hx of Infectious Diseases: None - Cardiac Hx Pacemaker: No - Pulmonary Hx Chronic Obstructive Pulmonary Disease (COPD): Yes Other/Comment: Lung CA - Neurological Hx Paralysis: No - Renal Other/Comment: Bladder CA - Hematological/Oncological Hx Blood Transfusions: (UNKNOWN) - Musculoskeletal/Rheumatological Hx Musculoskeletal Disorders: No - Gastrointestinal Hx Gastrointestinal Disorders: Yes (weight loss 25 lbs in 6 months) - Genitourinary/Gynecological Hx Genitourinary Disorders: (weak stream/nocturia/has 2wf) Hx Reproductive Disorders: Yes - Psychiatric Hx Emotional Abuse: No Hx Physical Abuse: No Hx Substance Use: No - Surgical History Hx Coronary Stent: Yes - Anesthesia Hx Anesthesia Reactions: No Hx Malignant Hyperthermia: No - Suicidal Assessment Feels Threatened In Home Enviroment: No Family/Social History - Physician Review Nursing Documentation Reviewed: Yes Family/Social History: Unknown Family HX Smoking Status: Former Smoker Hx Alcohol Use: No Hx Substance Use: No Allergies/Home Meds Allergies/Adverse Reactions: Allergies No Known Allergies Allergy (Verified 04/20/18 11:24) Review of Systems - Physician Review All systems were reviewed & negative as marked: Yes - Review of Systems Constitutional: Fatigue ENT: Normal Respiratory: SOB. absent: Cough Cardiovascular: Normal. absent: Chest Pain Gastrointestinal: Normal. absent: Diarrhea, Nausea, Vomiting Genitourinary Male: Normal. absent: Dysuria, Frequency, Hematuria Musculoskeletal: Other (difficulty ambualting). absent: Back Pain, Neck Pain Skin: absent: Rash Neurological: absent: Headache, Dizziness Physical Exam Vital Signs Reviewed: Yes Vital Signs Temp Pulse Resp BP Pulse Ox 04/20/18 13:02 97 H 18 124/78 96 04/20/18 11:17 97.8 F 97 H 20 126/85 93 L 04/20/18 11:16 97.8 F 104 H 18 126/85 95 Temperature: Afebrile Blood Pressure: Normal Pulse: Tachycardic Respiratory Rate: Normal Appearance: Positive for: Ill-Appearing Pain Distress: None Mental Status: Positive for: Alert and Oriented X 3 - Systems Exam Head: Present: Atraumatic, Normocephalic Pupils: Present: PERRL Extroacular Muscles: Present: EOMI Conjunctiva: Present: Normal Mouth: Present: Moist Mucous Membranes Neck: Present: Normal Range of Motion. No: Meningeal Signs, MIDLINE TENDERNESS , Paraspinal Tenderness Respiratory/Chest: Present: Other (lung sounds diminished bilaterally). No: Respiratory Distress, Accessory Muscle Use Cardiovascular: Present: Regular Rate and Rhythm, Normal S1, S2. No: Murmurs Abdomen: No: Tenderness, Distention, Peritoneal Signs Back: Present: Normal Inspection. No: CVA Tenderness, Midline Tenderness, Paraspinal Tenderness Upper Extremity: Present: Normal Inspection. No: Cyanosis, Edema Lower Extremity: Present: Normal Inspection. No: Edema, CALF TENDERNESS Neurological: Present: GCS=15, CN II-XII Intact, Speech Normal Skin: Present: Warm, Dry, Normal Color. No: Rashes Psychiatric: Present: Alert, Oriented x 3, Normal Insight, Normal Concentration Medical Decision Making ED Course and Treatment: 04/20/18 11:52 Impression: 82 year old male presents to the emergency department complaining of fatigue, weakness, and difficulty ambulating. Plan: -- EKG -- Labs -- Chest X-ray -- Duoneb -- Urinalysis -- Reassess and disposition Progress Notes: 04/20/18 12:37 EKG shows normal sinus rhythm rate approximately 100 with trigeminy and no acute ST or T-wave changes 04/20/18 12:38 Chest X-ray reviewed, shows: LUNGS: Bibasilar opacity new since prior examination. Possible pneumonia. Followup to clearing to exclude underlying neoplasm. Please note that the rounded mass evident at the left base on prior examination is obscured by the opacity at the left base on current examination. PLEURA: Small right pleural effusion. No pneumothorax. No left pleural effusion. CARDIOVASCULAR: CABG. Sternotomy wires. No congestive change. OSSEOUS STRUCTURES: No significant abnormalities. VISUALIZED UPPER ABDOMEN: Normal. OTHER FINDINGS: None. IMPRESSION: Bibasilar opacity and small right pleural effusion. Rule out pneumonia. Followup to clearing to exclude underlying neoplasm. 04/20/18 13:[address] Luna, who is aware and agrees with plan. Requests pt admission to Dr. Alessio Luna. Requests consultation with Dr. Jenkins , Dr. Godwin, Dr. Hightower, and Dr. Monzon - Lab Interpretations Lab Results: 04/20/18 11:37 04/20/18 11:37 Lab Results 04/20/18 11:37: Sodium 130 L, Potassium 5.4 H, Chloride 90 L, Carbon Dioxide 30 , Anion Gap 15, BUN 29 H, Creatinine 0.8, Est GFR ( Amer) > 60, Est GFR ( Non-Af Amer) > 60, Random Glucose 120 H, Calcium 8.2 L, Magnesium 2.0, Total Bilirubin 0.7, AST 30, ALT 22, Alkaline Phosphatase 226 H D, Lactate Dehydrogenase 856 H, Total Creatine Kinase 36, Troponin I 0.06 D, Total Protein 5.9, Albumin 2.9 L, Globulin 3.0, Albumin/Globulin Ratio 0.9 L 04/20/18 11:37: WBC 18.5 H D, RBC 3.92, Hgb 11.9 L D, Hct 36.6 L, MCV 93.4, MCH 30.4, MCHC 32.5, RDW 15.6 H, Plt Count 492 H, MPV 9.4, Gran % 87.1 H, Lymph % ( Auto) 8.0 L, [place] % (Auto) 4.7, Eos % (Auto) 0.1 L, Baso % (Auto) 0.1, Gran # 16.09 H, Lymph # (Auto) 1.5, [place] # (Auto) 0.9 H, Eos # (Auto) 0.0, Baso # (Auto ) 0.01 04/20/18 11:29: POC Glucose (mg/dL) 132 H - RAD Interpretation Radiology Orders: 04/20/18 11:49 CHEST PORTABLE [RAD] Stat Chest 1 view as read by the radiologist shows new left pneumonia and pleural effusion from prior exam. Typesetter Perforator Operator: Radiologist - Medication Orders Current Medication Orders: Discontinued Medications Albuterol/Ipratropium (Duoneb 3 Mg/0.5 Mg (3 Ml) Ud) 3 ml IH STAT STA Stop: 04/20/18 11:50 Last Admin: 04/20/18 12:00 Dose: 3 ml Piperacillin Sod/Tazobactam Sod (Zosyn 3.375 In Ns 100ml) 100 mls @ 200 mls/hr IVPB STAT STA PRN Reason: Protocol Stop: 04/20/18 13:07 - Scribe Statement The provider has reviewed the documentation as recorded by the Scribe Hannah Alex All medical record entries made by the Scribe were at my direction and personally dictated by me. I have reviewed the chart and agree that the record accurately reflects my personal performance of the history, physical exam, medical decision making, and the department course for this patient. I have also personally directed, reviewed, and agree with the discharge instructions and disposition. Disposition/Present on Arrival - Present on Arrival Any Indicators Present on Arrival: No History of DVT/PE: No History of Uncontrolled Diabetes: No Urinary Catheter: Yes (for retention/frequency) History of Decub. Ulcer: No History Surgical Site Infection Following: None - Disposition Have Diagnosis and Disposition been Completed?: Yes Diagnosis: Dehydration, Failure to thrive, Pneumonia, Elevated troponin Disposition: HOSPITALIZED Disposition Time: 13:25 Patient Plan: Admission Patient Problems: Current Active Problems Problem Status Onset Dehydration Acute Failure to thrive Acute Pneumonia Acute Condition: FAIR Forms: [employer] ([place]inamese)
[2018-04-20 12:07] LABS: BASO # 0.01 K/mm3 (0.0-2.0); BASO % 0.1 % (0.0-3.0); EOS % 0.1 % (1.5-5.0); GRAN # 16.09 (1.4-6.5); GRAN % 87.1 % (50.0-68.0); HEMOGLOBIN 11.9 g/dL (14.0-18.0); LYMPH # 1.5 (1.2-3.4); MEAN CELL VOLUME 93.4 fl (80.0-105.0); MEAN CORPUSCULAR HEMOGLOBIN 30.4 pg (25.0-35.0); MEAN CORPUSCULAR HGB CONC 32.5 g/dl (31.0-37.0); MEAN PLATELET VOLUME 9.4 fl (7.0-11.0); MONO # 0.9 (0.1-0.6); MONO % 4.7 % (1.0-6.0); RBC 3.92 10^6/uL (3.5-6.1); RED CELL DISTRIBUTION WIDTH 15.6 % (11.5-14.5); WHITE BLOOD COUNT 18.5 10^3/ul (4.5-11.0)
--- NOTE | 2018-04-20 12:32 | RAD ---
HISTORY: sob COMPARISON: 04/03/2018 FINDINGS: LUNGS: Bibasilar opacity new since prior examination. Possible pneumonia. Followup to clearing to exclude underlying neoplasm. Please note that the rounded mass evident at the left base on prior examination is obscured by the opacity at the left base on current examination. PLEURA: Small right pleural effusion. No pneumothorax. No left pleural effusion. CARDIOVASCULAR: CABG. Sternotomy wires. No congestive change. OSSEOUS STRUCTURES: No significant abnormalities. VISUALIZED UPPER ABDOMEN: Normal. OTHER FINDINGS: None. IMPRESSION: Bibasilar opacity and small right pleural effusion. Rule out pneumonia. Followup to clearing to exclude underlying neoplasm.
[2018-04-20] MEDS ORDERED: Piperacillin/Tazobact 3.375 gm 100 ML IVPB STA (12:38)
[2018-04-20 13:09] LABS: ALB/GLOB RATIO 0.9 (1.1-1.8); ALBUMIN 2.9 g/dL (3.0-4.8); ALT/SGPT 22 U/L (7-56); AST/SGOT 30 U/L (17-59); BLOOD UREA NITROGEN 29 mg/dL (7-21); CALCIUM 8.2 mg/dL (8.4-10.5); GFR AFRICAN-AMERICAN > 60; GFR NON-AFRICAN AMERICAN > 60
[2018-04-20 13:16] LABS: TROPONIN I 0.06 ng/mL
[2018-04-20 14:02] LABS: URINE BILIRUBIN NEGATIVE (NEGATIVE); URINE BLOOD LARGE (NEGATIVE); URINE GLUCOSE (UA) NEGATIVE (NEGATIVE); URINE LEUKOCYTE ESTERASE MODERATE Leu/uL (NEGATIVE); URINE PROTEIN 100 mg/dL (<30 mg/dL); URINE UROBILINOGEN 0.2 E.U./dL (<1 E.U./dL)
[2018-04-20 14:11] LABS: URINE APPEARANCE SL CLOUDY (CLEAR); URINE COLOR YELLOW (YELLOW)
[2018-04-20 14:15] LABS: URINE RBC TNTC /hpf (0-2); URINE WBC 15 - 20 /hpf (0-6)
[2018-04-20 14:16] LABS: URINE BACTERIA MANY (NEG)
[2018-04-20] MEDS ORDERED: Sod Polystyrene Sulf 15 gm/60 ml Susp PO STA (14:53)
[2018-04-20] MEDS ORDERED: Sod Polystyrene Sulf 15 gm/60 ml Susp ONE (14:56)
[2018-04-20] MEDS ORDERED: Albuterol 0.083% Inhal Sol (2.5 mg/3 mL) UD INH PRN (15:58)
[2018-04-20] MEDS: Oxycodone/Acetaminophen 10/325 mg Tab PO PRN (16:13)
[2018-04-20 20:30] VITALS: BMI 19.8
[2018-04-20] MEDS ORDERED: Pneumococcal 23-Valent Vaccine IM ONE (20:30)
[2018-04-21] MEDS: Oxycodone/Acetaminophen 10/325 mg Tab PO PRN ×3 (00:09→17:22)
--- NOTE | 2018-04-21 09:05 | CARD ---
APPROVED REPORT EKG Measurement Heart [id number] <Conclusion> Sinus rhythm with frequent premature ventricular complexes-trigeminal, new Low voltage QRS Septal infarct, age undetermined NSSTW changes
[2018-04-21] MEDS ORDERED: Albuterol-Ipratrop 3 mg / 0.5 (3 ml) UD IH PRN (09:21)
[2018-04-21] MEDS: Sodium Chloride 0.9% 1,000 ML IV SCH ×2 (09:32→22:16)
[2018-04-21] MEDS: Meropenem IV 1 gm in NS 50 ML IVPB SCH ×3 (10:25→21:11)
[2018-04-21] MEDS: Linezolid 600 mg in D5W 300 ml 600 MG/300 ML BAG IVPB SCH ×2 (11:42→21:48)
--- NOTE | 2018-04-21 12:16 | HP ---
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 for evaluation of a 3 day history of progressively worsening chest tightness, exertional dyspnea, malaise and cough intermittently productive of green sputum. The patient was recently discharged from [facility] approximately 2-3 weeks ago after an admission for failure to thrive during which time he was diagnosed with the aforementioned metastatic malignancy of urothelial origin. He has ongoing workup with Dr. Covarrubias (Heme/Onc) and Dr. Godwin (Urology). Since his discharge, the patient has been doing reasonably well at home until approximately 3 days prior to presentation when he was noted to develop mild exertional dyspnea and malaise. His symptoms subsequently progressed to fatigue , dyspnea at rest and cough productive of green sputum. Given his underlying history and his worsening symptoms, he was brought to the ED for evaluation. Upon arrival to the ED he was found to be afebrile and hemodynamically stable but hypoxic on room air with a pulse oximetry reading of 82%. Laboratory studies disclosed leukocytosis with a WBC of 18.5 and a chest x-ray demonstrated bibasilar opacities concerning for pneumonia. The patient was started on intravenous antibiotics and subsequently admitted to the [facility] medical [facility] for continued management of healthcare associated pneumonia. PAST MEDICAL HISTORY: As per HPI, also history of prostate cancer s/p radiation therapy, HTN, CAD s/p CABG, urinary retention s/p Carrillo catheter and iron deficiency anemia. PAST SURGICAL HISTORY: As per HPI. ALLERGIES: NKDA. MEDICATIONS: Aspirin 81 mg p.o. daily. FAMILY HISTORY: Significant for COPD and hypertension. SOCIAL HISTORY: The patient reports a former [id number] smoking history (quit 1 month ago) and social alcohol use. He denies illicit drug abuse. REVIEW OF SYSTEMS: A 12-point review of systems is negative except as per HPI. PHYSICAL EXAMINATION: VITAL SIGNS: Temperature 97.2, pulse 87, blood pressure 108/68, respiratory rate 18, oxygen saturation 93% on 3 L nasal cannula. GENERAL: A cachectic, chronically ill-appearing man, sitting up in bed in no apparent distress. HEENT: PERRL, EOMI. No scleral icterus. Mild conjunctival pallor is noted. NECK: No JVD. LUNGS: Decreased breath sounds at the bases with bibasilar crackles and few scattered rhonchi. CARDIOVASCULAR: Regular rate and rhythm. Normal S1 and S2. ABDOMEN: Normoactive bowel sounds. Soft, nontender and nondistended. GENITOURINARY: Carrillo catheter remains in place. EXTREMITIES: No edema. NEUROLOGIC: Awake, alert and oriented x 3. No focal motor deficits. LABORATORY DATA: WBC 18.5 with 87% neutrophils, hemoglobin 12, hematocrit 37, platelets 492. Sodium 130, potassium 5.4, chloride 90, bicarb 30, BUN 29, creatinine 0.8, glucose 120. Blood cultures pending. Procalcitonin pending. IMAGING STUDIES: Chest x-ray demonstrates bibasilar opacities and a small right pleural effusion concerning for pneumonia. 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 PLAN: 1. Sepsis secondary to healthcare-associated pneumonia. The patient received a dose of Zosyn in the ED. of ID has been consulted for antimicrobial recommendations. Dr. Garcia has been consulted for further pulmonary recommendations. We will continue with supplemental oxygen and bronchodilators as needed. Continue with chest PT. We will await final culture reports. 2. Hyponatremia, etiology likely secondary to poor p.o. intake. We will start the patient on gentle IV fluid hydration consisting of normal saline at 100 mL/ hour for 2 L. 3. Metastatic malignancy of urothelial origin with pulmonary metastasis. We will reconsult Dr. Covarrubias of Heme/Onc. Arrangements are being made for a PET scan prior to the patient's recent admission. 4. Severe COPD. As above, we will continue supplemental oxygen and bronchodilators as needed. Dr. Garcia of Pulmonary and Critical Care Medicine has been consulted for further evaluation and recommendations. 5. History of prostate cancer s/p radiation therapy. Workup during the patient 's most recent admission found him to be in remission with no evidence of recurrence. 6. Urinary retention s/p Carrillo catheter placement. The patient was followed by Dr. Godwin of Urology and recently underwent a cystoscopy with no evidence of a general urinary primary malignancy. Continue Flomax 0.4 mg p.o. b.i.d. 7. Hypertension. Blood pressure remains stable off antihypertensives. We will continue to monitor hemodynamics and resume medications as needed. 8. CAD s/p CABG. Resume Aspirin 81 mg p.o. daily. 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 9. Iron-deficiency anemia. Labs demonstrate stable H/H. We will continue to monitor CBC daily. 10. Prophylaxis. GI prophylaxis is not indicated as the patient is eating. Continue with Heparin for DVT prophylaxis. CODE STATUS: Full code. Alessio Yang MD MTDD
[2018-04-21] MEDS: Albuterol-Ipratrop 3 mg / 0.5 (3 ml) UD IH SCH ×2 (13:26→20:41)
--- NOTE | 2018-04-21 18:43 | CON ---
DATE: LOCATION: Patient is seen earlier this morning in room 573, bed 2. CHIEF COMPLAINT: Cough and shortness of breath times several days and weakness. HISTORY OF PRESENT ILLNESS: This is an 82-year-old male with diagnosis of lung cancer and admitted with fatigue, weakness, cough, shortness of breath and low grade fevers, no chills. REVIEW OF SYSTEMS: Reveals no abdominal pain, diarrhea or constipation. No bright red blood per rectum. No melena. No dysuria. No headaches. A 12-point review systems is performed. PAST MEDICAL HISTORY: Significant for diagnosis of lung cancer, chronic obstructive lung disease, coronary artery disease and prostate cancer. The patient was recently seen in [facility] in 03/2018 by me. PAST SURGICAL HISTORY: Significant for cardiac catheterization with stent and also coronary artery bypass graft over 20 years ago in [facility]. ALLERGIES: PATIENT HAS NO KNOWN ALLERGIES. Patient also with urethral cancer with lung metastasis with advanced chronic obstructive lung disease. History and physical examination by Dr. Alessio Yang from 04/05/2018 is reviewed. States that the patient has prostate cancer, had radiation, chronic obstructive lung disease and had a history of pulmonary nodules which was felt to be possibly metastasis and possibly primary pulmonary cancer. 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 PHYSICAL EXAMINATION: GENERAL: Patient is in bed, appearing chronically ill, debilitated with a temperature of 98, respiratory rate of 18 up to 20, heart rate of 90, it was up to 104, blood pressure is 94/60. Patient's O2 saturation is at 91%. It was down to 82%. HEENT: Unremarkable. NECK: Supple. LUNGS: Decreased breath sounds. HEART: Normal S1, S2. ABDOMINAL: Soft, nontender. No rebound. No guarding. No masses. LABORATORY EXAMINATION: Reveals a white count of 18,500, hemoglobin of 11 and platelets of 492. Chemistries reveals a BUN of 29, creatinine of 0.8, alk phos is elevated, LDH is elevated. Urinalysis reveals 15 to 20 wbc's, many bacteria. The patient had a chest x-ray, which is bibasilar opacity, new since the prior examination and had an EKG which showed a QTc of 443. 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 1. Severe sepsis with bilateral healthcare-associated pneumonia. Will check on the blood cultures, urine cultures, procalcitonin. We will start the patient on Zyvox and meropenem and pending mcgee cultures and procalcitonin levels and we will make further recommendations. Overall prognosis is quite poor for this end-stage cachectic patient. Atilio Jenkins MD
--- NOTE | 2018-04-21 19:38 | CON ---
DATE: 04/21/2018 PULMONARY CONSULTATION We were asked by Dr. Alessio Yang, wood last maker to evaluate and treat this 82-year-old man who was admitted via emergency room with chief complaint of shortness of breath, cough, fatigue, and difficulty ambulating. HISTORY OF PRESENT ILLNESS: He is an 82-year-old current smoker. He has a history of lung cancer. He denied fever, chills, chest pain, nausea, or vomiting. The symptom onset was gradual. PAST MEDICAL HISTORY: Positive for chronic obstructive pulmonary disease, a recent history of lung cancer, history of weight loss of 25 pounds in the last 6 months. SOCIAL HISTORY: Smoking positive, quit. No alcohol. No illicit drugs. FAMILY HISTORY: No history of inherited diseases. ALLERGIES: NO KNOWN ALLERGIES. REVIEW OF SYSTEMS: Conducted by reviewing all sources. CONSTITUTIONAL: Positive for fatigue. ENT: Negative. RESPIRATORY: See history of present illness. CARDIOVASCULAR: No chest pain. No palpitations. GASTROINTESTINAL: No nausea, vomiting, or diarrhea. GENITOURINARY: No dysuria or hematuria. SKIN: No complaints of skin rash. NEUROLOGIC: No complaints of headaches or dizziness. All other systems negative. PHYSICAL EXAMINATION: VITAL SIGNS: His temperature is 97, pulse 84, respirations 18, blood pressure 124/78, pulse oximetry is 95% on nasal cannula. HEAD, EARS, NOSE, AND THROAT: Normocephalic and atraumatic. NECK: Supple. There are no jugular vein distentions. RESPIRATORY: Crackles at both lung bases, right more than left. CARDIOVASCULAR: S1 and S2. No S3. Regular. GI: Soft and nontender. No organomegaly. EXTREMITIES: No pedal edema. No cyanosis. SKIN: No acute skin rash. NEUROLOGIC: No focal deficits. Reviewed chest x-ray with dense infiltrate in right lower lobe, pneumonia is strongly suspected; however, neoplasm underlying this infiltrate cannot be excluded. There is a trace right pleural effusion. LABORATORY DATA: Reviewed. His serum sodium is reduced to 130, potassium 5.4. His WBC is elevated at 18.5, hemoglobin reduced to 11.9, and platelet count is 492,000. ASSESSMENT: 1. Right lower lobe pneumonia, rule out postobstructive pneumonitis. 2. Chronic obstructive pulmonary disease. 3. Recent history of lung cancer. 4. Leukocytosis. 5. Mild anemia. PLAN: Patient will be started on intravenous antibiotics. CT scan of chest without contrast can help differentiate between dense pneumonia and/or additional mass; however, this can wait at least 48 hours until the infiltrate clear and then the picture will be more consistent with findings and that is we recommend. Patient has received a dose of Zosyn and we will continue with intravenous antibiotics. We will follow closely. Lalo Cho MD MTDJose
[2018-04-22] MEDS: Albuterol-Ipratrop 3 mg / 0.5 (3 ml) UD IH SCH ×4 (01:56→20:02)
[2018-04-22] MEDS: Meropenem IV 1 gm in NS 50 ML IVPB SCH ×3 (05:42→22:07)
[2018-04-22 07:58] LABS: BASO # 0.01 K/mm3 (0.0-2.0); BASO % 0.1 % (0.0-3.0); EOS % 0.1 % (1.5-5.0); GRAN # 12.89 (1.4-6.5); GRAN % 86.9 % (50.0-68.0); HEMOGLOBIN 11.3 g/dL (14.0-18.0); LYMPH # 0.9 (1.2-3.4); LYMPH % 5.8 % (22.0-35.0); MEAN CELL VOLUME 94.7 fl (80.0-105.0); MEAN CORPUSCULAR HEMOGLOBIN 30.1 pg (25.0-35.0); MEAN CORPUSCULAR HGB CONC 31.7 g/dl (31.0-37.0); MEAN PLATELET VOLUME 9.2 fl (7.0-11.0); MONO # 1.1 (0.1-0.6); MONO % 7.1 % (1.0-6.0); RBC 3.76 10^6/uL (3.5-6.1); RED CELL DISTRIBUTION WIDTH 15.8 % (11.5-14.5); WHITE BLOOD COUNT 14.8 10^3/ul (4.5-11.0)
[2018-04-22 08:11] LABS: ALB/GLOB RATIO 0.9 (1.1-1.8); ALBUMIN 2.9 g/dL (3.0-4.8); ALT/SGPT 27 U/L (7-56); AST/SGOT 28 U/L (17-59); BLOOD UREA NITROGEN 18 mg/dL (7-21); CALCIUM 7.8 mg/dL (8.4-10.5); GFR AFRICAN-AMERICAN > 60; GFR NON-AFRICAN AMERICAN > 60
[2018-04-22] MEDS: Oxycodone/Acetaminophen 10/325 mg Tab PO PRN ×2 (08:53→20:16)
[2018-04-22] MEDS: Linezolid 600 mg in D5W 300 ml 600 MG/300 ML BAG IVPB SCH ×2 (10:05→22:45)
[2018-04-22] MEDS ORDERED: Potassium Chloride 20 mEq ER Tab PO ONE (11:27)
--- NOTE | 2018-04-22 13:52 | PN ---
DATE: 04/22/2018 PULMONARY PROGRESS NOTE SUBJECTIVE: Patient was seen and examined at the bedside. He states he still does not feel good. He is weak and he has intermittent cough. He is receiving nebulizer treatment with DuoNeb and he is on meropenem and Zyvox. PHYSICAL EXAMINATION: VITAL SIGNS: Temperature 98.6, pulse 96, respirations 18, pulse oximetry is 94 on nasal cannula, blood pressure is 100/64. NECK: Supple with no jugular vein distention. HEAD: Normocephalic and atraumatic. CARDIOVASCULAR: S1 and S2. No S3. Regular. PULMONARY: Diminished breath sounds at both bases with scattered rhonchi, right more than left. No wheezing. GI: Soft and nontender. No organomegaly. EXTREMITIES: No pedal edema. No cyanosis. SKIN: No acute skin rash. NEUROLOGIC: No focal deficits. LABORATORY DATA: Additional data reviewed. His serum sodium today is 134, potassium 3.5, chloride 92. Alkaline phosphatase elevated to 246, albumin reduced to 2.9. His WBCs are improved to 14.8, hemoglobin is 11.3. Chest x-ray was reviewed by me again. There is significant infiltrate in right lower lung with possibly small subpulmonic effusion on the right. The left lung is relatively clear. ASSESSMENT: 1. Right lower lobe pneumonia, stage IV urothelial cancer with pulmonary metastasis, exacerbation of severe chronic obstructive pulmonary disease. 2. Hypertension. 3. Coronary artery disease, status post coronary artery bypass graft. PLAN: We will continue antibiotic treatment as per Dr. Jenkins for healthcare associated right lower lobe pneumonia. Hyponatremia is resolving. Metastatic urothelial origin cancer. Dr. Covarrubias, Oncology, will be reconsulted. His severe COPD has improved. We will continue with aerosol therapy. Lalo Cho MD
--- NOTE | 2018-04-22 14:08 | PN ---
DATE: 04/22/2018 SUBJECTIVE: The patient is in bed, in no acute distress, nontoxic. PHYSICAL EXAMINATION: VITAL SIGNS: On exam, temperature is 98, blood pressure is 100/60, respiratory rate of 18. HEENT: Examination of HEENT is unremarkable. NECK: Supple. LUNGS: Have decreased breath sounds. HEART: Normal S1, S2. ABDOMEN: Soft, nontender. LABORATORY DATA: Laboratory examination reveals a white count of 14,800, hemoglobin of 11, platelets of 446. Chemistries reveals a BUN of 18, creatinine of 0.8, procalcitonin 0.11. Urinalysis is noted. Microbiology reveals the blood cultures are negative. Review of orders reveals the urine cultures, sputum cultures are pending. The patient is on meropenem and linezolid. ASSESSMENT AND PLAN: An 82-year-old male, seen earlier this morning in 573, bed 2, who is admitted with #1 is severe sepsis with bilateral healthcare-associated pneumonia with a negative procalcitonin, negative blood cultures, sputum and urine cultures pending in a patient who has history of ureteral cancer with lung metastases, which is poorly differentiated ureteral cancer and advanced end-stage chronic obstructive lung disease and coronary artery disease and hypertension, long-time ex-smoker. Admitted with pulmonary symptoms, shortness of breath, tachycardia, hypoxia and new infiltrates. We will continue treatment of Zyvox and meropenem, day #2, although the procalcitonin is normal. Sputum, urine cultures are pending. Overall prognosis is quite poor for this patient who is chronically ill, cachectic with a body mass index of only 19. Atilio Jenkins MD
--- NOTE | 2018-04-22 14:20 | PN ---
SUBJECTIVE: The patient was seen and examined at bedside on the general [facility]. No acute events overnight. He remains afebrile and hemodynamically stable. The patient does endorse some improvement in his respiratory status but does not feel to be back at his baseline. He otherwise offers no specific complaints. OBJECTIVE: VITAL SIGNS: Temperature 98.6, pulse 96, blood pressure 100/64, respiratory rate 18, oxygen saturation 94% on 2 liters nasal cannula. GENERAL: A cachectic chronically ill-appearing man, sitting up in bed, in no apparent distress. HEENT: PERRL. EOMI. No scleral icterus. Mild conjunctival pallor is noted. NECK: No JVD. CARDIOVASCULAR: Regular rate and rhythm. Normal S1 and S2. LUNGS: Decreased breath sounds at the bases with bibasilar crackles and a few scattered rhonchi. ABDOMEN: Normoactive bowel sounds. Soft, nontender, nondistended. GENITOURINARY: Carrillo catheter remains in place. EXTREMITIES: No edema. NEUROLOGICAL: Awake, alert and oriented x 3. No focal motor deficits. LABORATORY DATA: WBC 14.8 with 87% neutrophils, hemoglobin 11, hematocrit 36, platelets 446. Sodium 134, potassium 3.5, chloride 92, bicarb 33, BUN 18, creatinine 0.8, glucose 96, procalcitonin 0.11. Blood cultures with no growth to date. Sputum culture pending. 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 PLAN: 1. Sepsis secondary to healthcare associated pneumonia. Input from Dr. Cho noted and appreciated. Input from Dr. Jenkins noted and appreciated. Continue with chest PT, supplement oxygen and bronchodilators as needed. Continue with Meropenem 1 g IV every 8 hours and Linezolid 600 mg IV every 12 hours. 2. Hyponatremia, etiology likely secondary to poor p.o. intake, resolved. The patient remains off IV fluids and has been encouraged to increase his p.o. intake. 3. Metastatic malignancy of urothelial origin with pulmonary metastases. The patient is followed by Dr. Covarrubias of Heme/Onc and arrangements are being made for a PET scan. 4. Severe COPD. Input from Dr. Cho greatly appreciated. Continue supplemental oxygen and bronchodilators as needed. 5. History of prostate cancer s/p radiation therapy. The patient remains in remission with no evidence of recurrence. 6. Urinary retention s/p Carrillo catheter placement. Continue Flomax 0.4 mg p.o. b.i.d. Arrangements will be made for followup with Dr. Godwin of Urology on discharge. 7. Hypertension. BP stable off antihypertensives. We will continue to monitor hemodynamics. 8. CAD s/p CABG. Continue Aspirin 81 mg p.o. daily. 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 9. Iron deficiency anemia. Labs demonstrate stable H/H. We will continue Feosol. 10. Prophylaxis. GI prophylaxis not indicated as the patient is eating. Continue with Heparin for DVT prophylaxis. CODE STATUS: Full code. Alessio Yang MD MTDD
[2018-04-23] MEDS: Albuterol-Ipratrop 3 mg / 0.5 (3 ml) UD IH SCH ×4 (02:35→20:35)
[2018-04-23] MEDS: Meropenem IV 1 gm in NS 50 ML IVPB SCH ×3 (05:32→21:34)
[2018-04-23 07:17] LABS: EOS % 0.2 % (1.5-5.0); GRAN % 86.2 % (50.0-68.0); HEMOGLOBIN 11.5 g/dL (14.0-18.0); MEAN CELL VOLUME 94.5 fl (80.0-105.0); MEAN CORPUSCULAR HEMOGLOBIN 30.1 pg (25.0-35.0); MEAN CORPUSCULAR HGB CONC 31.9 g/dl (31.0-37.0); MEAN PLATELET VOLUME 8.8 fl (7.0-11.0); MONO # 0.9 (0.1-0.6); MONO % 6.6 % (1.0-6.0); RBC 3.82 10^6/uL (3.5-6.1); RED CELL DISTRIBUTION WIDTH 15.8 % (11.5-14.5); WHITE BLOOD COUNT 13.9 10^3/ul (4.5-11.0)
[2018-04-23 07:36] LABS: ALBUMIN 2.9 g/dL (3.0-4.8); ALT/SGPT 22 U/L (7-56); AST/SGOT 29 U/L (17-59); BLOOD UREA NITROGEN 14 mg/dL (7-21); CALCIUM 8.1 mg/dL (8.4-10.5); GFR AFRICAN-AMERICAN > 60; GFR NON-AFRICAN AMERICAN > 60
--- NOTE | 2018-04-23 08:25 | PN ---
SUBJECTIVE: The patient was seen and examined at bedside on the [facility]. No acute events overnight. He continues to demonstrate gradual clinical improvement in his respiratory status and overall feels improved since admission and offers no specific complaints. OBJECTIVE: VITAL SIGNS: Temperature 98.6, pulse 90, blood pressure 114/62, respiratory rate 18, oxygen saturation 100% on 2 L nasal cannula. GENERAL: A cachectic, chronically ill-appearing man, sitting up in bed in no apparent distress. HEENT: PERRL, EOMI. No scleral icterus. Mild conjunctival pallor is noted. NECK: No JVD. CARDIOVASCULAR: Regular rate and rhythm. Normal S1 and S2. LUNGS: Decreased breath sounds at the bases with bibasilar crackles. ABDOMEN: Normoactive bowel sounds. Soft, nontender and nondistended. GENITOURINARY: Carrillo catheter remains in place. EXTREMITIES: No edema. NEUROLOGIC: Awake, alert and oriented x 3. No focal motor deficits. LABORATORY DATA: WBC 13.9 with 86% neutrophils, hemoglobin 11.5, hematocrit 36, platelets 426. Sodium 136, potassium 4.2, chloride 94, bicarb 34, BUN 14, creatinine 0.7, glucose 93. Blood cultures with growth to date. Sputum culture with no growth to date. 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 PLAN: 1. Sepsis secondary to healthcare associated pneumonia. Input from Dr. Cho noted and appreciated. Input from Dr. Jenkins greatly appreciated. Continue with chest PT, supplement oxygen and bronchodilators as needed. Continue Meropenem 1 g IV every 8 hours and Linezolid 600 mg IV every 12 hours. 2. Hyponatremia, etiology likely secondary to poor p.o. intake, resolved. The patient remains off IV fluids and has been encouraged to maintain adequate p.o. intake. 3. Metastatic malignancy of urothelial origin with pulmonary metastasis. The patient is followed by Dr. Covarrubias of Heme/Onc and arrangements are being made for PET scan and continued therapy. 4. Severe COPD. Input from Dr. Cho greatly appreciated. Continue supplemental oxygen and bronchodilators as needed. 5. History of prostate cancer s/p radiation therapy. The patient remains in remission and with no evidence of recurrence. 6. Urinary retention s/p Carrillo catheter placement. Continue Flomax 0.4 mg p.o. b.i.d. The patient to follow up with Dr. Godwin upon discharge. 7. Hypertension. BP stable off antihypertensives. We will continue to monitor hemodynamics. 8. CAD s/p CABG. Continue Aspirin 81 mg p.o. daily. 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 9. Iron-deficiency anemia. Labs demonstrate stable H/H. 10. Prophylaxis. GI prophylaxis is not indicated as the patient is eating. Continue with Heparin for DVT prophylaxis. CODE STATUS: Full code. Alessio Yang MD MTDJose
[2018-04-23] MEDS: Linezolid 600 mg in D5W 300 ml 600 MG/300 ML BAG IVPB SCH ×2 (09:36→22:10)
--- NOTE | 2018-04-23 10:13 | PN ---
DATE: 04/23/2018 PULMONARY PROGRESS NOTE SUBJECTIVE: The patient is feeling much better. He is sitting in bed, upright, eating. No acute respiratory distress. There is intermittent cough, however. He is taking his inhalation treatments and is feeling better slowly. PHYSICAL EXAMINATION: VITAL SIGNS: Stable. He remains afebrile. Heart rate 90, respiratory rate 16, oxygen saturation 96% on nasal cannula, blood pressure 118/70. NECK: Supple. No JVD. No lymphadenopathy. No bruits. CARDIOVASCULAR: Regular rhythm. S1, S2 without murmur, gallop or rub. CHEST: Global decrease in breath sounds throughout. Scattered rhonchi throughout. No wheezing is appreciated. ABDOMEN: Soft. Bowel sounds normoactive without mass, guarding, rebound or organomegaly. EXTREMITIES: Reveal no clubbing, cyanosis or edema. There is no Homans' sign. SKIN: Shows no rash or excoriations. NEUROLOGIC: No focal findings. The patient remains comfortable. LABORATORY DATA: Chest x-ray has been reviewed. Elevated WBC, will be repeated. No additional changes at this time. X-ray consistent with right lower lobe pneumonia plus or minus effusion. ASSESSMENT: 1. Right lower lobe pneumonia. 2. Small pleural effusion (?). 3. Rule out metastasis. 4. Chronic obstructive pulmonary disease. 5. Stage IV urethral carcinoma. PLAN: Continue antibiotics and bronchodilators. Repeat x-ray has been ordered for the morning. The patient will require followup with Oncology. Followup CAT scan will be required once the acute event resolves. We will look forward to making sure that Mr. Castillo is feeling better and that his pneumonia improves, the COPD remains stable and that no further neoplasm is identified. Contreras Monzon MD MTDJose
[2018-04-23] MEDS: Oxycodone/Acetaminophen 10/325 mg Tab PO PRN (17:44)
--- NOTE | 2018-04-23 21:03 | CP.PCM.PN ---
Subjective - Date & Time of Evaluation Date of Evaluation: 04/23/18 Time of Evaluation: 10:40 - Subjective Subjective: No fevers, not in distress. Objective - Vital Signs/Intake and Output Vital Signs (last 24 hours): Temp Pulse Resp BP Pulse Ox 98.6 F 100 H 20 128/70 96 04/22/18 21:48 04/23/18 06:00 04/23/18 06:00 04/23/18 06:00 04/23/18 06:00 Intake and Output: 04/23/18 04/23/18 06:59 18:59 Intake Total 1770 Output Total 2200 Balance -430 - Medications Medications: Current Medications Albuterol Sulfate (Albuterol 0.083% Inhal Sarah (2.5 Mg/3 Ml) Ud) 2.5 mg INH [id number] PRN PRN Reason: shorthness of breath Last Admin: 04/20/18 19:50 Dose: 2.5 mg Albuterol/Ipratropium (Duoneb 3 Mg/0.5 Mg (3 Ml) Ud) 3 ml IH Q2H PRN PRN Reason: Shortness of Breath Albuterol/Ipratropium (Duoneb 3 Mg/0.5 Mg (3 Ml) Ud) 3 ml IH [id number] CELESTINE Last Admin: 04/23/18 07:23 Dose: 3 ml Alprazolam (Xanax) 0.5 mg PO BID PRN; Protocol PRN Reason: Anxiety Last Admin: 04/22/18 22:45 Dose: 0.5 mg Aspirin (Aspirin Chewable) 81 mg PO DAILY CELESTINE Last Admin: 04/23/18 09:36 Dose: 81 mg Heparin Sodium (Porcine) (Heparin) 5,000 units SC Q12 CELESTINE PRN Reason: Protocol Last Admin: 04/23/18 09:36 Dose: 5,000 units Linezolid (Zyvox 600mg/300ml D5w) 600 mg in 300 mls @ 200 mls/hr IVPB Q12 CELESTINE PRN Reason: Protocol Stop: 04/30/18 10:01 Last Admin: 04/23/18 09:36 Dose: 200 mls/hr Meropenem (Merrem Iv 1 Gm Premix) 50 mls @ 100 mls/hr IVPB Q8 CELESTINE PRN Reason: Protocol Stop: 04/30/18 09:44 Last Admin: 04/23/18 05:32 Dose: 100 mls/hr Oxycodone/Acetaminophen (Percocet 10/325 Mg Tab) 1 tab PO Q4H PRN PRN Reason: Pain, severe (8-10) Last Admin: 04/22/18 20:16 Dose: 1 tab Tamsulosin HCl (Flomax) 0.4 mg PO BID CELESTINE Last Admin: 04/23/18 09:36 Dose: 0.4 mg - Labs Labs: 04/23/18 06:30 04/23/18 06:30 - Constitutional Appears: Chronically Ill - Head Exam Head Exam: NORMAL INSPECTION - ENT Exam ENT Exam: Mucous Membranes Moist - Neck Exam Neck Exam: absent: Meningismus - Respiratory Exam Respiratory Exam: Decreased Breath Sounds - Cardiovascular Exam Cardiovascular Exam: +S1, +S2 - GI/Abdominal Exam GI & Abdominal Exam: Soft. 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
[2018-04-24] MEDS: Albuterol-Ipratrop 3 mg / 0.5 (3 ml) UD IH SCH ×4 (01:20→19:35)
[2018-04-24] MEDS: Meropenem IV 1 gm in NS 50 ML IVPB SCH ×3 (06:03→21:23)
[2018-04-24] MEDS: Oxycodone/Acetaminophen 10/325 mg Tab PO PRN (06:07)
[2018-04-24 06:55] LABS: EOS % 0.2 % (1.5-5.0); GRAN # 11.98 (1.4-6.5); HEMOGLOBIN 10.5 g/dL (14.0-18.0); LYMPH # 0.9 (1.2-3.4); LYMPH % 6.5 % (22.0-35.0); MEAN CELL VOLUME 96.3 fl (80.0-105.0); MEAN CORPUSCULAR HEMOGLOBIN 29.9 pg (25.0-35.0); MEAN CORPUSCULAR HGB CONC 31.1 g/dl (31.0-37.0); MEAN PLATELET VOLUME 8.9 fl (7.0-11.0); MONO % 7.3 % (1.0-6.0); RBC 3.51 10^6/uL (3.5-6.1); RED CELL DISTRIBUTION WIDTH 15.9 % (11.5-14.5); WHITE BLOOD COUNT 13.9 10^3/ul (4.5-11.0)
[2018-04-24 07:12] LABS: ALB/GLOB RATIO 0.9 (1.1-1.8); ALBUMIN 2.7 g/dL (3.0-4.8); ALT/SGPT 18 U/L (7-56); AST/SGOT 27 U/L (17-59); BLOOD UREA NITROGEN 14 mg/dL (7-21); CALCIUM 8.2 mg/dL (8.4-10.5); GFR AFRICAN-AMERICAN > 60; GFR NON-AFRICAN AMERICAN > 60
--- NOTE | 2018-04-24 09:01 | PN ---
SUBJECTIVE: The patient was seen and examined at bedside on the general medical nelson. No acute events overnight. He remains afebrile, hemodynamically stable and with continued gradual improvement in his respiratory status. OBJECTIVE: VITAL SIGNS: Temperature 98.4, pulse 102, blood pressure 135/72, respiratory rate 14, oxygen saturation 92% on 3 liters nasal cannula. GENERAL: A cachectic, chronically ill-appearing man, sitting up in bed in no apparent distress. HEENT: PERRL, EOMI. No scleral icterus. Mild conjunctival pallor is noted. NECK: No JVD. LUNGS: Decreased breath sounds at the bases with a few scattered rhonchi. CARDIOVASCULAR: Regular rate and rhythm. Normal S1 and S2. ABDOMEN: Normoactive bowel sounds. Soft, nontender and nondistended. EXTREMITIES: No edema. NEUROLOGIC: Awake, alert and oriented x 3. No focal motor deficits. LABORATORY DATA: WBC 13.9 with 86% neutrophils, hemoglobin 10.5, hematocrit 34 and platelets 412. Chemistry reviewed and unremarkable. Blood cultures are negative. Sputum culture with yeast species. 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 PLAN: 1. Sepsis secondary to healthcare-associated pneumonia, improving. Input from Dr. Monzon greatly appreciated. Continue with chest PT, supplement oxygen and bronchodilators as needed. Input from Dr. Reyna appreciated. Continue Meropenem and Linezolid. 2. Hyponatremia, etiology likely secondary to poor p.o. intake, resolved. The patient remains off IV fluids and has been encouraged to maintain adequate p.o. intake. 3. Metastatic malignancy of urothelial origin with pulmonary metastases. The patient will resume followup with Dr. Covarrubias of Heme/Onc upon discharge. 4. Severe COPD. Input from Dr. Monzon appreciated. Continue treatment as per #1. 5. History of prostate cancer s/p radiation therapy. The patient remains in remission with no evidence of recurrence. 6. Urinary retention s/p Carrillo catheter placement. Continue with Flomax 0.4 mg p.o. b.i.d. The patient will follow up with Dr. Godwin upon discharge. 7. Hypertension. BP stable, off antihypertensives. We will continue to monitor hemodynamics. 8. CAD s/p CABG. Continue Aspirin 81 mg p.o. daily. 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 9. Iron-deficiency anemia. Labs demonstrate stable H/H. 10. Prophylaxis. GI prophylaxis is not indicated as the patient is eating. Continue with heparin for DVT prophylaxis. CODE STATUS: Full code. Alessio Yang MD MTDD
--- NOTE | 2018-04-24 10:21 | RAD ---
Date of service: 04/24/2018 HISTORY: pneumonia COMPARISON: 04/20/2018 TECHNIQUE: Chest PA and lateral FINDINGS: LUNGS: No active pulmonary disease. PLEURA: Bilateral pleural effusions right greater than left increased size of effusion on the right side. Adjacent infiltrates CARDIOVASCULAR: Normal. OSSEOUS STRUCTURES: Sternal wires VISUALIZED UPPER ABDOMEN: Normal. OTHER FINDINGS: None. IMPRESSION: Bilateral pleural effusions right greater than left. Increased size of effusion on the right side adjacent infiltrates
[2018-04-24] MEDS: Linezolid 600 mg in D5W 300 ml 600 MG/300 ML BAG IVPB SCH ×2 (11:14→21:23)
--- NOTE | 2018-04-24 14:42 | PN ---
DATE: 04/24/2018 PULMONARY PROGRESS NOTE SUBJECTIVE: The patient is markedly improved, sitting in bed, comfortable, no acute respiratory distress. There is an intermittent cough that persists, but he is doing well. He needs further time to heal and to get inhalation therapy with chest physical therapy. PHYSICAL EXAMINATION GENERAL: The patient remains in bed, comfortable, in no acute distress. VITAL SIGNS: Stable. He is afebrile. Blood pressure 120/70, respiratory rate is 16, oxygen sat 96%. NECK: Supple. No JVD. No lymphadenopathy. CARDIOVASCULAR: Regular rhythm, S1, S2 without murmur, gallop or rub. CHEST: Global decrease in breath sounds. Minimal rhonchi persist. No wheezing is noted. ABDOMEN: Soft. Bowel sounds normoactive without mass, guarding, rebound or organomegaly. EXTREMITIES: Reveal no clubbing, cyanosis or edema. SKIN: No rash or excoriation. NEUROLOGIC: No focal findings. LABORATORY DATA: No new studies are available today. ASSESSMENT: 1. Right lower lobe pneumonia. 2. Small pleural effusion. 3. Question of metastatic disease. 4. Chronic obstructive pulmonary disease. 5. Urethral carcinoma, stage IV. PLAN: I have discussed the case with the physician's medical office assistant instructor on the floor. She is desirous of having the patient transferred to TCU. I see no problem with this as long as the patient could continue to get chest physical therapy and inhalation therapy on a timely manner. We will continue to follow the patient if transfer to TCU. He will require further oncologic followup. A CAT scan, once the patient's pneumonia resolves, is still strongly suggested. We will follow closely with you during his continued stay in the hospital. Thank you for the opportunity to evaluate Brigido. Contreras Monzon MD
--- NOTE | 2018-04-24 16:29 | CP.PCM.PN ---
Subjective - Date & Time of Evaluation Date of Evaluation: 04/24/18 Time of Evaluation: 10:45 - Subjective Subjective: Still with cough but a little less, no fevers. Objective - Vital Signs/Intake and Output Vital Signs (last 24 hours): Temp Pulse Resp BP Pulse Ox 98 F 100 H 20 119/68 96 04/24/18 06:00 04/24/18 06:00 04/24/18 06:00 04/24/18 06:00 04/24/18 06:00 Intake and Output: 04/24/18 04/24/18 06:59 18:59 Intake Total 150 Output Total 800 Balance -650 - Medications Medications: Current Medications Albuterol Sulfate (Albuterol 0.083% Inhal Sarah (2.5 Mg/3 Ml) Ud) 2.5 mg INH [id number] PRN PRN Reason: shorthness of breath Last Admin: 04/20/18 19:50 Dose: 2.5 mg Albuterol/Ipratropium (Duoneb 3 Mg/0.5 Mg (3 Ml) Ud) 3 ml IH Q2H PRN PRN Reason: Shortness of Breath Albuterol/Ipratropium (Duoneb 3 Mg/0.5 Mg (3 Ml) Ud) 3 ml IH [id number] CELESTINE Last Admin: 04/24/18 07:25 Dose: 3 ml Alprazolam (Xanax) 0.5 mg PO BID PRN; Protocol PRN Reason: Anxiety Last Admin: 04/24/18 01:16 Dose: 0.5 mg Aspirin (Aspirin Chewable) 81 mg PO DAILY CELESTINE Last Admin: 04/23/18 09:36 Dose: 81 mg Heparin Sodium (Porcine) (Heparin) 5,000 units SC Q12 CELESTINE PRN Reason: Protocol Last Admin: 04/23/18 21:34 Dose: 5,000 units Linezolid (Zyvox 600mg/300ml D5w) 600 mg in 300 mls @ 200 mls/hr IVPB Q12 CELESTINE PRN Reason: Protocol Stop: 04/30/18 10:01 Last Admin: 04/23/18 22:10 Dose: 200 mls/hr Meropenem (Merrem Iv 1 Gm Premix) 50 mls @ 100 mls/hr IVPB Q8 CELESTINE PRN Reason: Protocol Stop: 04/30/18 09:44 Last Admin: 04/24/18 06:03 Dose: 100 mls/hr Ibuprofen (Motrin Tab) 600 mg PO Q6H PRN PRN Reason: Pain, moderate (4-7) Paroxetine HCl (Paxil) 10 mg PO DAILY CELESTINE Tamsulosin HCl (Flomax) 0.4 mg PO BID CELESTINE Last Admin: 04/23/18 17:08 Dose: 0.4 mg - Labs Labs: 04/24/18 06:00 04/24/18 06:00 - Constitutional Appears: Chronically Ill - Head Exam Head Exam: NORMAL INSPECTION - Respiratory Exam Respiratory Exam: Decreased Breath Sounds - Cardiovascular Exam Cardiovascular Exam: +S1, +S2 - GI/Abdominal Exam GI & Abdominal Exam: Soft. absent: Tenderness Assessment and Plan - Assessment and Plan (Free Text) Plan: Assessment severe sepsis due to bilateral HCAP S/P Systemic Inflammatory response syndrome, consider due to acute musculoskeletal pain on top of probable metastatic prostate cancer asymptomatic bacteriuria with Staph epidermidis CAD S/P CABG prostate CA S/P radiation therapy HTN dyslipidemia significant smoking history Plan continue Zyvox and Merrem day 4 to complete 4-7 days of therapy overall prognosis is poor
[2018-04-24] MEDS ORDERED: Oxycodone/Acetaminophen 5/325 mg Tab PO PRN (17:16)
--- NOTE | 2018-04-24 17:30 | US ---
HISTORY: Arm pain and swelling. Evaluate for deep venous thrombosis. PHYSICIAN(S): Ancelmo Tucker MD. FINDINGS: The visualized internal jugular veins are sonographically normal and compressible. No evidence of obstruction or thrombus this is seen. The visualized segments of the subclavian veins are patent with normal waveforms. No sonographic evidence of obstruction or thrombosis is seen. The visualized deep venous systems of both upper extremities proximally are sonographically normal and compressible. IMPRESSION: 1. No sonographic evidence for deep venous thrombosis in the visualized segments of both upper strategies.
--- NOTE | 2018-04-24 19:45 | US ---
PROCEDURE: Ultrasound guided right thoracentesis. CLINICAL HISTORY: Metastatic uro epithelial cancer. New bilateral pleural effusions, greater on the right than the left. Shortness of breath. Needs thoracentesis. PHYSICIAN(S): Ancelmo Tucker MD. TECHNIQUE: The relative risks and indications of the procedure were explained to the patient and consent obtained. The patient was placed in a sitting position on the stretcher and sonography of the right chest performed. This revealed a moderate to large rightpleural effusion. There is a tiny pleural effusion on the left. A right posterolateral intercostal approach was selected and the area prepped and draped usual sterile fashion. 1% Xylocaine was used to anesthetize the skin and soft tissues. A 7 [place]ian thoracentesis catheter was trocared into the right pleural cavity and 1700 ccof clear straw-colored fluid aspirated. A cytology specimen was sent the lab IMPRESSION: 1. Ultrasound guided right thoracentesis. 1700 cc of clear, straw-colored fluid was aspirated. A cytology specimen was sent 2. Tiny left pleural effusion
[2018-04-24 22:47] VITALS: BP 105/63; PULSE 95; RESP 18; TEMP 98.5; O2SAT 93
[2018-04-25] MEDS: Albuterol-Ipratrop 3 mg / 0.5 (3 ml) UD IH SCH ×4 (02:34→19:18)
[2018-04-25] MEDS: Meropenem IV 1 gm in NS 50 ML IVPB SCH ×2 (05:22→18:08)
[2018-04-25 07:05] LABS: BASO # 0.01 K/mm3 (0.0-2.0); BASO % 0.1 % (0.0-3.0); EOS % 0.3 % (1.5-5.0); GRAN # 13.27 (1.4-6.5); GRAN % 86.9 % (50.0-68.0); HEMOGLOBIN 10.9 g/dL (14.0-18.0); LYMPH # 0.8 (1.2-3.4); LYMPH % 5.4 % (22.0-35.0); MEAN CORPUSCULAR HEMOGLOBIN 29.9 pg (25.0-35.0); MEAN CORPUSCULAR HGB CONC 30.9 g/dl (31.0-37.0); MEAN PLATELET VOLUME 8.9 fl (7.0-11.0); MONO # 1.1 (0.1-0.6); MONO % 7.3 % (1.0-6.0); RBC 3.64 10^6/uL (3.5-6.1); RED CELL DISTRIBUTION WIDTH 15.4 % (11.5-14.5); WHITE BLOOD COUNT 15.3 10^3/ul (4.5-11.0)
[2018-04-25 07:08] LABS: BLOOD UREA NITROGEN 14 mg/dL (7-21); GFR AFRICAN-AMERICAN > 60; GFR NON-AFRICAN AMERICAN > 60
[2018-04-25 07:09] LABS: ALB/GLOB RATIO 0.9 (1.1-1.8); ALBUMIN 2.6 g/dL (3.0-4.8); ALT/SGPT 18 U/L (7-56); AST/SGOT 26 U/L (17-59); CALCIUM 8.2 mg/dL (8.4-10.5)
--- NOTE | 2018-04-25 09:43 | RAD ---
Date of service: 04/25/2018 HISTORY: rt thora COMPARISON: 04/24/2018 FINDINGS: LUNGS: No active pulmonary disease. PLEURA: There is a decrease in the size of the right pleural effusion post thoracentesis. There is no pneumothorax. CARDIOVASCULAR: Normal. OSSEOUS STRUCTURES: No significant abnormalities. VISUALIZED UPPER ABDOMEN: Normal. OTHER FINDINGS: None. IMPRESSION: There is a decrease in the size of the right pleural effusion post thoracentesis. There is no pneumothorax.
[2018-04-25] MEDS: Linezolid 600 mg in D5W 300 ml 600 MG/300 ML BAG IVPB SCH (10:10)
--- NOTE | 2018-04-25 11:54 | CP.PCM.PN ---
Subjective - Date & Time of Evaluation Date of Evaluation: 04/25/18 Time of Evaluation: 11:00 - Subjective Subjective: Had thoracentesis yesterday, comfortable in bed, no fevers overnight. Objective - Vital Signs/Intake and Output Vital Signs (last 24 hours): Temp Pulse Resp BP Pulse Ox 98.5 F 95 H 18 105/63 93 L 04/24/18 22:46 04/24/18 22:46 04/24/18 22:46 04/24/18 22:46 04/24/18 22:46 Intake and Output: 04/25/18 04/25/18 06:59 18:59 Intake Total 420 Output Total 375 Balance 45 - Medications Medications: Current Medications Albuterol Sulfate (Albuterol 0.083% Inhal Sarah (2.5 Mg/3 Ml) Ud) 2.5 mg INH [id number] PRN PRN Reason: shorthness of breath Last Admin: 04/20/18 19:50 Dose: 2.5 mg Albuterol/Ipratropium (Duoneb 3 Mg/0.5 Mg (3 Ml) Ud) 3 ml IH Q2H PRN PRN Reason: Shortness of Breath Albuterol/Ipratropium (Duoneb 3 Mg/0.5 Mg (3 Ml) Ud) 3 ml IH [id number] [facility] Last Admin: 04/25/18 07:18 Dose: 3 ml Alprazolam (Xanax) 0.25 mg PO BID CELESTINE PRN Reason: Protocol Stop: 05/01/18 18:01 Last Admin: 04/24/18 19:25 Dose: 0.25 mg Aspirin (Aspirin Chewable) 81 mg PO DAILY [facility] Last Admin: 04/24/18 11:12 Dose: 81 mg Heparin Sodium (Porcine) (Heparin) 5,000 units SC Q12 CELESTINE PRN Reason: Protocol Last Admin: 04/24/18 21:23 Dose: 5,000 units Linezolid (Zyvox 600mg/300ml D5w) 600 mg in 300 mls @ 200 mls/hr IVPB Q12 CELESTINE PRN Reason: Protocol Stop: 04/30/18 10:01 Last Admin: 04/24/18 21:23 Dose: 200 mls/hr Meropenem (Merrem Iv 1 Gm Premix) 50 mls @ 100 mls/hr IVPB Q8 CELESTINE PRN Reason: Protocol Stop: 04/30/18 09:44 Last Admin: 04/25/18 05:22 Dose: 100 mls/hr Ibuprofen (Motrin Tab) 600 mg PO Q6H PRN PRN Reason: Pain, moderate (4-7) Nicotine (Nicoderm Cq) 1 patch TD DAILY [facility] Last Admin: 04/24/18 16:37 Dose: 1 patch Oxycodone/Acetaminophen (Percocet 5/325 Mg Tab) 1 tab PO Q6H PRN PRN Reason: Pain, moderate (4-7) Stop: 04/27/18 17:17 Paroxetine HCl (Paxil) 10 mg PO DAILY [facility] Last Admin: 04/24/18 11:35 Dose: 10 mg Tamsulosin HCl (Flomax) 0.4 mg PO BID [facility] Last Admin: 04/24/18 19:25 Dose: 0.4 mg - Labs Labs: 04/25/18 06:40 04/25/18 06:40 - Constitutional Appears: Chronically Ill - Head Exam Head Exam: NORMAL INSPECTION - Neck Exam Neck Exam: absent: Meningismus - Respiratory Exam Respiratory Exam: Decreased Breath Sounds - Cardiovascular Exam Cardiovascular Exam: +S1, +S2 - GI/Abdominal Exam GI & Abdominal Exam: Soft. absent: Tenderness Assessment and Plan - Assessment and Plan (Free Text) Plan: Assessment severe sepsis due to bilateral HCAP pleural effusion S/P thoracentesis history of Systemic Inflammatory response syndrome, consider due to acute musculoskeletal pain on top of probable metastatic prostate cancer asymptomatic bacteriuria with Staph epidermidis CAD S/P CABG prostate CA S/P radiation therapy HTN dyslipidemia significant smoking history Plan continue Zyvox and Merrem day 5 to complete 4-7 days of therapy follow up pleural fluid analysis results overall prognosis is poor
--- NOTE | 2018-04-25 15:14 | CARD ---
APPROVED REPORT Date of service: 04/25/2018 EXAM: Two-dimensional and M-mode echocardiogram with Doppler and color Doppler. INDICATION Dizziness and Vertigo 2D DIMENSIONS Left Atrium (2D)4.5 (1.6-4.0cm)IVSd1.1 (0.7-1.1cm) LVDd4.5 (3.9-5.9cm)PWd1.1 (0.7-1.1cm) LVDs2.8 (2.5-4.0cm)FS (%) 37.1 % LVEF (%)67.1 (>50%) M-Mode DIMENSIONS Aortic Root3.70 (2.2-3.7cm)Aortic Cusp Exc.2.10 (1.5-2.0cm) Aortic Valve AoV Peak Omkivruz737.0cm/Mirella Peak GR.13mmHgAI P 1/2 [id number] Mitral Valve MV E Langrdiv90.5cm/sMV A Jjvrgufq590.0cm/sE/A ratio0.8 TDI Lateral E' Peak V15.30cm/sMedial E' Peak V11.10cm/sE/Lateral E'5.8 E/Medial E'8.1 Pulmonary Valve PV Peak Cofgaioi03.0cm/sPV Peak Grad.2mmHg Tricuspid Valve TR Peak [id number]/sRAP [id number] Peak Gr.61mmHg [id number] LEFT VENTRICLE The left ventricle is normal size. There is normal left ventricular wall thickness. The left ventricular function is normal. The left ventricular ejection fraction is within the normal range. There is normal LV segmental wall motion. Transmitral Doppler flow pattern is Grade I-abnormal relaxation pattern. RIGHT VENTRICLE The right ventricle is mildly dilated. There is normal right ventricular wall thickness. The right ventricular systolic function is normal. ATRIA The left atrium is mildly dilated. The right atrium is severely dilated. AORTIC VALVE The aortic valve is mildly thickened. There is mild to moderate aortic regurgitation. There is no aortic valvular stenosis. MITRAL VALVE The mitral valve is mildly thickened. Mitral regurgitation is mild. There is no mitral valve stenosis. TRICUSPID VALVE The tricuspid valve is normal in structure. There is mild tricuspid regurgitation. There is severe pulmonary hypertension. GREAT VESSELS The aortic root is mildly enlarged. The IVC is normal in size and collapses >50% with inspiration. PERICARDIAL EFFUSION There is a small circumferential pericardial effusion. <Conclusion> The left ventricle is normal size. There is normal left ventricular wall thickness. The left ventricular function is normal. The left ventricular ejection fraction is within the normal range. There is normal LV segmental wall motion. Transmitral Doppler flow pattern is Grade I-abnormal relaxation pattern. There is mild to moderate aortic regurgitation. The aortic root is mildly enlarged. Mitral regurgitation is mild. There is severe pulmonary hypertension.
--- NOTE | 2018-04-25 15:15 | DS ---
HISTORY OF PRESENT ILLNESS: The patient is 82-year-old. Upon family's request, he was transferred to my service by Dr. Alessio Yang. The patient is 82-year-old who was seen and examined, by the beside who stated that he has not been feeling well for almost a year, has been having cough and congestion. He is a heavy smoker. He thought this is because of his smoking. He never sought any medical attention; however, he was brought to Emergency Room on 04/20/2018 with cough, congestion, fever, chills. His x-ray chest showed COPD with bilateral pleural effusion along with bibasilar opacities and possible mets. He was also found to have urothelial bladder CA. PAST MEDICAL HISTORY: Significant for: 1. Hypertension. 2. History of CA prostate, was treated with radiation therapy. 3. Coronary artery disease, status post open-heart surgery in the remote past. 4. Iron-deficiency anemia. ALLERGIES: HE IS NOT ALLERGIC TO ANY MEDICATION. CURRENT MEDICATIONS: He is on meropenem. He is on Zyvox and he is on Flomax and nebulizer treatment. PHYSICAL EXAMINATION: GENERAL: Today, he is awake, alert, oriented. Complaining of generalized weakness, poor appetite, complaining of getting short of breath on walking. VITAL SIGNS: He is afebrile. Pulse 95, respirations 18, blood pressure 105/63. LUNGS: Bilateral diffusely decreased breath sounds and also had decreased breath sounds at bases. HEART: S1, S2 audible. ABDOMEN: Soft, nontender, no rebound, no guarding. NEUROLOGIC: The patient is awake, alert, oriented, able to communicate. EXTREMITIES: Bilateral legs, no edema. GENITOURINARY: He is draining ann colored urine. LABORATORY DATA: WBC 15.3, hemoglobin 10.9, hematocrit 35.3, platelet of 401. Chemistries: Sodium 135, potassium 4.7, chloride 92, CO2 of 38, BUN 14, creatinine 0.7, blood sugar of 97. LFTs are within normal limits. Alk phos is 233. Blood culture and urine cultures are negative. Sputum growing yeast species. ASSESSMENT: 1. 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 2. Community-acquired pneumonia. 3. Chronic obstructive pulmonary disease. 4. History of carcinoma prostate, status post radiation therapy. 5. Coronary artery disease, status post open-heart surgery. 6. Hyperlipidemia. 7. Active smoker up until admission. PLAN: Currently, the patient is on Zyvox, will continue that. He is on Xanax, analgesic as needed. He has been started on Paxil. He is on meropenem and Flomax. The patient will be transferred to TCU today. Will follow up in TCU. Discussed with Dr. Covarrubias. As soon as the patient improves from this present episode of sickness and upon discharge, he will have PET scan done and after that, his chemotherapy will be started. I will order for echocardiogram to assess LV function. Of note, the patient also had thoracentesis done yesterday and 1700 mL fluid was removed. Will follow up cultures on that. Follow up this patient in a.m., in TCU. Amina Green MD
--- NOTE | 2018-04-26 07:40 | PN ---
DATE: 04/25/2018 PULMONARY PROGRESS NOTE SUBJECTIVE: The patient was seen and examined at the bedside. He is complaining of being very weak. He is not in respiratory distress. He has some right-sided chest discomfort following thoracentesis, but no real chest pain. PHYSICAL EXAMINATION: VITAL SIGNS: His temperature is 98.5, pulse is 95, respirations 20, pulse oximetry is 93 on nasal cannula, blood pressure is 105/63. HEAD, EARS, NOSE AND THROAT: Within normal limits. NECK: Supple with no jugular vein distention. CARDIOVASCULAR: Symmetrical S1, S2. No S3, no murmurs. PULMONARY: Diminished breath sounds at the right lung base. No wheezing. GI: Soft, nontender. No organomegaly. EXTREMITIES: 1+ pedal edema. No cyanosis. SKIN: No acute skin rash. NEUROLOGIC: Limited at the present time. LABORATORY DATA: Today's WBC is 15.3, hemoglobin of 10.9 and platelet count is 401,000. His sodium is 135, potassium 4.7. Lalo Cho MD
== END 2018-04-25 21:13 | DRG 871 ==
LOC: ED 11:06 → ERH 13:19 → 5RSO 15:23
PROVIDERS: ADMIT Student in an Organized Health Care Education/Training Program; ATTEND Internal Medicine
PROC: 3E0F7GC Introduction of Other Therapeutic Substance into Respiratory Tract, Via Natural or Artificial Opening (ICD-10-PCS; 2018-04-20)
PROC: 3E03328 Introduction of Oxazolidinones into Peripheral Vein, Percutaneous Approach (ICD-10-PCS; principal; 2018-04-21)
PROC: 0W993ZZ Drainage of Right Pleural Cavity, Percutaneous Approach (ICD-10-PCS; 2018-04-24)
DX: A41.9 Sepsis, unspecified organism (principal); J18.9 Pneumonia, unspecified organism; C78.00 Secondary malignant neoplasm of unspecified lung; J44.0 Chronic obstructive pulmonary disease with (acute) lower respiratory infection; R64 Cachexia; J44.1 Chronic obstructive pulmonary disease with (acute) exacerbation; E87.1 Hypo-osmolality and hyponatremia; J90 Pleural effusion, not elsewhere classified; Z68.1 Body mass index [BMI] 19.9 or less, adult; C67.9 Malignant neoplasm of bladder, unspecified; I25.10 Atherosclerotic heart disease of native coronary artery without angina pectoris; I10 Essential (primary) hypertension; D50.9 Iron deficiency anemia, unspecified; R33.9 Retention of urine, unspecified; E78.5 Hyperlipidemia, unspecified; R65.20 Severe sepsis without septic shock; R09.02 Hypoxemia; Y95 Nosocomial condition; F17.200 Nicotine dependence, unspecified, uncomplicated; Z85.46 Personal history of malignant neoplasm of prostate; Z92.3 Personal history of irradiation; Z95.1 Presence of aortocoronary bypass graft

== ENCOUNTER 2018-04-25 21:13 | Inpatient (IN) | payer MEDICARE ==
[2018-04-25] MEDS ORDERED: Albuterol 0.083% Inhal Sol (2.5 mg/3 mL) UD INH PRN (21:54)
[2018-04-25] MEDS ORDERED: Albuterol-Ipratrop 3 mg / 0.5 (3 ml) UD IH PRN (21:54)
[2018-04-25] MEDS ORDERED: Linezolid 600 mg in D5W 300 ml 600 MG/300 ML BAG IVPB SCH (22:00)
[2018-04-25] MEDS ORDERED: Meropenem IV 1 gm in NS 50 ML IVPB SCH (22:00)
[2018-04-25] MEDS: Meropenem IV 1 gm in NS 50 ML IVPB SCH (23:37)
[2018-04-26] MEDS: Albuterol-Ipratrop 3 mg / 0.5 (3 ml) UD IH SCH ×4 (01:47→21:51)
[2018-04-26] MEDS: Meropenem IV 1 gm in NS 50 ML IVPB SCH ×3 (05:17→21:25)
[2018-04-26] MEDS: Linezolid 600 mg in D5W 300 ml 600 MG/300 ML BAG IVPB SCH ×2 (05:42→17:58)
[2018-04-26 07:08] LABS: BASO # 0.01 K/mm3 (0.0-2.0); BASO % 0.1 % (0.0-3.0); EOS % 0.2 % (1.5-5.0); GRAN # 12.07 (1.4-6.5); HEMOGLOBIN 10.8 g/dL (14.0-18.0); LYMPH # 0.9 (1.2-3.4); LYMPH % 6.4 % (22.0-35.0); MEAN CELL VOLUME 94.9 fl (80.0-105.0); MEAN CORPUSCULAR HEMOGLOBIN 29.2 pg (25.0-35.0); MEAN CORPUSCULAR HGB CONC 30.8 g/dl (31.0-37.0); MEAN PLATELET VOLUME 8.9 fl (7.0-11.0); MONO # 0.9 (0.1-0.6); MONO % 6.3 % (1.0-6.0); RBC 3.7 10^6/uL (3.5-6.1); RED CELL DISTRIBUTION WIDTH 15.3 % (11.5-14.5); WHITE BLOOD COUNT 13.9 10^3/ul (4.5-11.0)
[2018-04-26 07:10] LABS: ALB/GLOB RATIO 0.9 (1.1-1.8); ALBUMIN 2.6 g/dL (3.0-4.8); ALT/SGPT 21 U/L (7-56); AST/SGOT 25 U/L (17-59); BLOOD UREA NITROGEN 12 mg/dL (7-21); CALCIUM 8.2 mg/dL (8.4-10.5); GFR AFRICAN-AMERICAN > 60; GFR NON-AFRICAN AMERICAN > 60
[2018-04-26] MEDS: Oxycodone/Acetaminophen 5/325 mg Tab PO PRN ×3 (09:19→22:19)
--- NOTE | 2018-04-26 12:38 | CP.PCM.CON ---
History of Present Illness - History of Present Illness History of Present Illness: 82 year old male with PMH of CAD S/P CABG, prostate CA S/P radiation therapy, HTN, dyslipidemia, significant smoking history [place] [facility] [place]ness of breath and cough and was found to have bilateral HCAP. He also had thoracentesis done and is doing better, together with antibiotics. He is now transferred to [facility] for physical therapy and medical treatment. Infectious diseases consult is requested to continue his antibiotic therapy. Currently the patient still feels weak but is not short of breath at rest, improved cough, no vomiting, no diarrhea, no fevers. Review of Systems - Review of Systems All systems: reviewed and no additional remarkable complaints except (as per HPI ) Past Patient History - Infectious Disease Hx of Infectious Diseases: None - Past Social History Smoking Status: Former Smoker - CARDIAC Hx Hypertension: Yes - PULMONARY Hx Respiratory Disorders: Yes Hx Chronic Obstructive Pulmonary Disease (COPD): Yes Hx Pneumonia: Yes (7-6-18) Other/Comment: Lung CA - NEUROLOGICAL Hx Paralysis: No - RENAL Hx Chronic Kidney Disease: Yes Other/Comment: Bladder CA - HEMATOLOGICAL/ONCOLOGICAL Hx Blood Transfusions: (UNKNOWN) - MUSCULOSKELETAL/RHEUMATOLOGICAL Hx Musculoskeletal Disorders: No Hx Falls: No - GASTROINTESTINAL Hx Gastrointestinal Disorders: Yes (weight loss 25 lbs in 6 months) - GENITOURINARY/GYNECOLOGICAL Hx Genitourinary Disorders: Yes (weak stream/nocturia/has 2wf) Other/Comment: PROSTATE CA WITH RADIATION. - PSYCHIATRIC Hx Emotional Abuse: No Hx Physical Abuse: No Hx Substance Use: No - SURGICAL HISTORY Hx Surgeries: Yes (CABG,TRIPLE BYPASS) Hx Coronary Stent: Yes - ANESTHESIA Hx Anesthesia Reactions: No Hx Malignant Hyperthermia: No Meds Allergies/Adverse Reactions: Allergies Allergy/AdvReac Type Severity Reaction Status Date / Time No Known Allergies Allergy Verified 04/26/18 02:15 - Medications Medications: Current Medications Albuterol Sulfate (Albuterol 0.083% Inhal Sarah (2.5 Mg/3 Ml) Ud) 2.5 mg INH [id number] PRN; Protocol PRN Reason: shorthness of breath Albuterol/Ipratropium (Duoneb 3 Mg/0.5 Mg (3 Ml) Ud) 3 ml IH Q2H PRN; Protocol PRN Reason: Shortness of Breath Albuterol/Ipratropium (Duoneb 3 Mg/0.5 Mg (3 Ml) Ud) 3 ml IH [id number] CELESTINE PRN Reason: Protocol Alprazolam (Xanax) 0.25 mg PO BID CELESTINE PRN Reason: Protocol Stop: 05/03/18 10:01 Aspirin (Aspirin Chewable) 81 mg PO DAILY CELESTINE PRN Reason: Protocol Heparin Sodium (Porcine) (Heparin) 5,000 units SC Q12 CELESTINE PRN Reason: Protocol Meropenem 1,000 mg/ Sodium (Chloride) 50 mls @ 100 mls/hr IVPB Q8 CELESTINE PRN Reason: Protocol Linezolid (Zyvox 600mg/300ml D5w) 600 mg in 300 mls @ 200 mls/hr IVPB Q12 CELESTINE PRN Reason: Protocol Stop: 04/28/18 22:01 Ibuprofen (Motrin Tab) 600 mg PO Q6H PRN; Protocol PRN Reason: Pain, moderate (4-7) Nicotine (Nicoderm Cq) 1 patch TD DAILY CELESTINE PRN Reason: Protocol Oxycodone/Acetaminophen (Percocet 5/325 Mg Tab) 1 tab PO Q6H PRN; Protocol PRN Reason: Pain, severe (8-10) Stop: 04/28/18 21:55 Paroxetine HCl (Paxil) 10 mg PO DAILY CELESTINE PRN Reason: Protocol Tamsulosin HCl (Flomax) 0.4 mg PO BID CELESTINE PRN Reason: Protocol Physical Exam - Constitutional Appears: Chronically Ill - Head Exam Head Exam: NORMAL INSPECTION - Respiratory Exam Respiratory Exam: Decreased Breath Sounds - Cardiovascular Exam Cardiovascular Exam: +S1, +S2 - GI/Abdominal Exam GI & Abdominal Exam: Soft. absent: Tenderness Results - Labs Result Diagrams: 04/26/18 06:30 04/26/18 06:30 Assessment & Plan - Assessment and Plan (Free Text) Plan: Assessment severe sepsis due to bilateral HCAP pleural effusion S/P thoracentesis history of Systemic Inflammatory response syndrome, consider due to acute musculoskeletal pain on top of probable metastatic prostate cancer asymptomatic bacteriuria with Staph epidermidis CAD S/P CABG prostate CA S/P radiation therapy HTN dyslipidemia significant smoking history Plan continue Zyvox and Merrem day 6 to complete 4-7 days of therapy follow up pleural fluid analysis results overall prognosis is poor
--- NOTE | 2018-04-26 14:23 | HP ---
HISTORY OF PRESENT ILLNESS: The patient is an 82 years old, who was brought to Emergency Room on 04/21 because of generalized weakness that was getting worse. He also had chest discomfort with shortness of breath. Also, progressively losing weight. So he was admitted on acute care floor. X-ray of chest shows metastatic malignancy. The patient had cystoscopy done by Dr. Godwin and was diagnosed with urothelial bladder CA. The patient is currently being treated for community-acquired pneumonia. Because of his deconditioning, he was transferred to TCU for rehab and continuation of his antibiotic and nebulizer treatment. PAST MEDICAL HISTORY: He has significant past medical history of: 1. COPD. 2. History of CA of prostate, for that he received radiation therapy. 3. Hypertension. 4. Coronary artery disease, status post open-heart surgery. 5. Indwelling catheter. 6. Chronic anemia. ALLERGIES: HE IS NOT ALLERGIC TO ANY MEDICATION. MEDICATIONS AT HOME: Prior to coming he was only on Flomax. SOCIAL HISTORY: He is a heavy smoker up until his admission. He used to drink socially. He is . He lives with his . PHYSICAL EXAMINATION: GENERAL: Today, he is awake and alert, able to communicate. VITAL SIGNS: He is afebrile, pulse 103, respirations 18, and blood pressure 106/66. LUNGS: Bilateral diffusely decreased breath sounds. HEART: S1 and S2 audible. ABDOMEN: Soft, nontender. No rebound. No guarding. NEUROLOGIC: The patient is awake, alert, oriented, communicative. LABORATORY DATA: WBC 13.9, hemoglobin 10.8, hematocrit 35.1 and platelet of 354. Chemistries: Sodium 131, potassium 4.5, chloride 92, CO2 37, BUN 12, creatinine 0.7, blood sugar of 104. LFTs are within normal limits except alkaline phosphatase of 230. Total protein 5.5. ASSESSMENT AND PLAN: 1. 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 2. Chronic obstructive pulmonary disease. 3. Community-acquired pneumonia. 4. Generalized weakness. 5. Deconditioning, difficulty walking. 6. Coronary artery disease. PLAN: We will continue patient on nebulizer treatment. Continue him on Flomax. He is on DVT prophylaxis. Continue him on meropenem. He is currently on nicotine patch. We will continue his analgesics. His Paxil has been discontinue since it has interaction with Zyvox and start him on Periactin since is complaining that his appetite is very poor. We will follow his CBC, CMP . Amina Green MD
[2018-04-27] MEDS: Albuterol-Ipratrop 3 mg / 0.5 (3 ml) UD IH SCH ×4 (02:00→20:08)
[2018-04-27] MEDS: Meropenem IV 1 gm in NS 50 ML IVPB SCH ×3 (05:32→21:28)
[2018-04-27] MEDS: Linezolid 600 mg in D5W 300 ml 600 MG/300 ML BAG IVPB SCH ×2 (05:33→17:29)
[2018-04-27] MEDS: Oxycodone/Acetaminophen 5/325 mg Tab PO PRN ×3 (09:12→22:57)
--- NOTE | 2018-04-27 11:51 | CP.PCM.PN ---
Subjective - Date & Time of Evaluation Date of Evaluation: 04/26/18 Time of Evaluation: 10:20 - Subjective Subjective: Comfortable, no fevers. Objective - Vital Signs/Intake and Output Vital Signs (last 24 hours): Temp Pulse Resp BP Pulse Ox 98.6 F 101 H 20 121/74 93 L 04/26/18 16:00 04/26/18 16:00 04/26/18 16:00 04/26/18 16:00 04/26/18 16:00 Intake and Output: 04/26/18 04/27/18 18:59 06:59 Intake Total 500 Output Total 1 Balance 499 - Medications Medications: Current Medications Albuterol/Ipratropium (Duoneb 3 Mg/0.5 Mg (3 Ml) Ud) 3 ml IH Q2H PRN; Protocol PRN Reason: Shortness of Breath Last Admin: 04/26/18 05:41 Dose: 3 ml Albuterol/Ipratropium (Duoneb 3 Mg/0.5 Mg (3 Ml) Ud) 3 ml IH [id number] CELESTINE PRN Reason: Protocol Last Admin: 04/26/18 13:15 Dose: 3 ml Alprazolam (Xanax) 0.25 mg PO BID CELESTINE PRN Reason: Protocol Stop: 05/03/18 10:01 Last Admin: 04/26/18 09:10 Dose: 0.25 mg Aspirin (Aspirin Chewable) 81 mg PO DAILY CELESTINE PRN Reason: Protocol Last Admin: 04/26/18 09:09 Dose: 81 mg Cyproheptadine HCl (Periactin) 4 mg PO TID CELESTINE Last Admin: 04/26/18 17:58 Dose: 4 mg Heparin Sodium (Porcine) (Heparin) 5,000 units SC Q12 CELESTINE PRN Reason: Protocol Last Admin: 04/26/18 21:22 Dose: 5,000 units Linezolid (Zyvox 600mg/300ml D5w) 600 mg in 300 mls @ 200 mls/hr IVPB 0600, 1800 CELESTINE PRN Reason: Protocol Stop: 04/28/18 22:01 Last Admin: 04/26/18 17:58 Dose: 200 mls/hr Meropenem (Merrem Iv 1 Gm Premix) 50 mls @ 100 mls/hr IVPB Q8 CELESTINE PRN Reason: Protocol Last Admin: 04/26/18 21:25 Dose: 100 mls/hr Ibuprofen (Motrin Tab) 600 mg PO Q6H PRN; Protocol PRN Reason: Pain, moderate (4-7) Nicotine (Nicoderm Cq) 1 patch TD DAILY CELESTINE PRN Reason: Protocol Last Admin: 04/26/18 09:09 Dose: 1 patch Oxycodone/Acetaminophen (Percocet 5/325 Mg Tab) 1 tab PO Q6H PRN; Protocol PRN Reason: Pain, severe (8-10) Stop: 04/28/18 21:55 Last Admin: 04/26/18 16:52 Dose: 1 tab Tamsulosin HCl (Flomax) 0.4 mg PO BID CELESTINE PRN Reason: Protocol Last Admin: 04/26/18 17:58 Dose: 0.4 mg - Labs Labs: 04/26/18 06:30 04/26/18 06:30 - Constitutional Appears: Chronically Ill - Head Exam Head Exam: NORMAL INSPECTION - Respiratory Exam Respiratory Exam: Decreased Breath Sounds - Cardiovascular Exam Cardiovascular Exam: +S1, +S2 - GI/Abdominal Exam GI & Abdominal Exam: Soft. absent: Tenderness Assessment and Plan - Assessment and Plan (Free Text) Plan: Assessment severe sepsis due to bilateral HCAP, clinically improving pleural effusion S/P thoracentesis history of Systemic Inflammatory response syndrome, consider due to acute musculoskeletal pain on top of probable metastatic prostate cancer asymptomatic bacteriuria with Staph epidermidis CAD S/P CABG prostate CA S/P radiation therapy HTN dyslipidemia significant smoking history Plan continue Zyvox and Merrem day 7 to complete 4-7 days of therapy - will d/c after today follow up pleural fluid analysis results overall prognosis is poor
--- NOTE | 2018-04-27 15:33 | PN ---
DATE: 04/27/2018 SUBJECTIVE: The patient is 82-year-old, seen and examined. He states he is feeling a little better, was able to eat, complained of bilateral arm swelling, has generalized weakness, difficulty walking, desaturated on walking up to 84%. PHYSICAL EXAMINATION: VITAL SIGNS: He is afebrile, pulse 101, respirations 20, blood pressure 121/74. LUNGS: Bilateral diffusely decreased breath sounds, more so at bases. HEART: S1 and S2 audible. ABDOMEN: Soft, nontender. No rebound, no guarding. NEUROLOGIC: He is awake and alert, able to communicate. EXTREMITIES: He has bilateral upper extremity and bilateral lower extremity swelling with pitting edema. ASSESSMENT AND PLAN: 1. Metastatic urothelial bladder cancer. 2. Resolving bilateral pneumonia. 3. Deconditioning and difficulty walking. 4. Bilateral upper extremity edema, rule out deep venous thrombosis. 5. Hypertension. 6. Anemia. 7. Hyponatremia. 8. Leukocytosis. PLAN: Currently, the patient is on aspirin 81 daily. We will continue nebulizer treatment. The patient is on Flomax. We will continue him on meropenem. Analgesic as needed and follow up the patient in the morning. Amina Green MD
[2018-04-28] MEDS: Albuterol-Ipratrop 3 mg / 0.5 (3 ml) UD IH SCH ×4 (01:14→19:30)
[2018-04-28] MEDS: Linezolid 600 mg in D5W 300 ml 600 MG/300 ML BAG IVPB SCH (05:49)
[2018-04-28] MEDS: Meropenem IV 1 gm in NS 50 ML IVPB SCH (05:49)
--- NOTE | 2018-04-28 12:28 | CP.PCM.PN ---
Subjective - Date & Time of Evaluation Date of Evaluation: 04/27/18 Time of Evaluation: 11:35 - Subjective Subjective: No fevers, still weak, not in distress. Objective - Vital Signs/Intake and Output Vital Signs (last 24 hours): Temp Pulse Resp BP Pulse Ox 98.2 F 102 H 20 122/66 91 L 04/27/18 16:00 04/27/18 16:00 04/27/18 16:00 04/27/18 16:00 04/27/18 16:00 Intake and Output: 04/27/18 04/28/18 18:59 06:59 Output Total 600 Balance -600 - Medications Medications: Current Medications Albuterol/Ipratropium (Duoneb 3 Mg/0.5 Mg (3 Ml) Ud) 3 ml IH Q2H PRN; Protocol PRN Reason: Shortness of Breath Last Admin: 04/26/18 05:41 Dose: 3 ml Albuterol/Ipratropium (Duoneb 3 Mg/0.5 Mg (3 Ml) Ud) 3 ml IH [id number] CELESTINE PRN Reason: Protocol Last Admin: 04/27/18 20:08 Dose: Not Given Alprazolam (Xanax) 0.25 mg PO BID CELESTINE PRN Reason: Protocol Stop: 05/03/18 10:01 Last Admin: 04/27/18 21:18 Dose: 0.25 mg Aspirin (Aspirin Chewable) 81 mg PO DAILY CELESTINE PRN Reason: Protocol Last Admin: 04/27/18 09:11 Dose: 81 mg Cyproheptadine HCl (Periactin) 4 mg PO TID CELESTINE Last Admin: 04/27/18 17:29 Dose: 4 mg Heparin Sodium (Porcine) (Heparin) 5,000 units SC Q12 CELESTINE PRN Reason: Protocol Last Admin: 04/27/18 21:20 Dose: 5,000 units Linezolid (Zyvox 600mg/300ml D5w) 600 mg in 300 mls @ 200 mls/hr IVPB 0600, 1800 CELESTINE PRN Reason: Protocol Stop: 04/28/18 22:01 Last Admin: 04/27/18 17:29 Dose: 200 mls/hr Meropenem (Merrem Iv 1 Gm Premix) 50 mls @ 100 mls/hr IVPB Q8 CELESTINE PRN Reason: Protocol Last Admin: 04/27/18 21:28 Dose: 100 mls/hr Ibuprofen (Motrin Tab) 600 mg PO Q6H PRN; Protocol PRN Reason: Pain, moderate (4-7) Nicotine (Nicoderm Cq) 1 patch TD DAILY CELESTINE PRN Reason: Protocol Last Admin: 04/27/18 09:12 Dose: 1 patch Oxycodone/Acetaminophen (Percocet 5/325 Mg Tab) 1 tab PO Q6H PRN; Protocol PRN Reason: Pain, severe (8-10) Stop: 04/28/18 21:55 Last Admin: 04/27/18 22:57 Dose: 1 tab Tamsulosin HCl (Flomax) 0.4 mg PO BID CELESTINE PRN Reason: Protocol Last Admin: 04/27/18 17:29 Dose: 0.4 mg - Labs Labs: 04/26/18 06:30 04/26/18 06:30 - Constitutional Appears: Chronically Ill - Head Exam Head Exam: NORMAL INSPECTION - Respiratory Exam Respiratory Exam: Decreased Breath Sounds - Cardiovascular Exam Cardiovascular Exam: +S1, +S2 - GI/Abdominal Exam GI & Abdominal Exam: Soft. absent: Tenderness Assessment and Plan - Assessment and Plan (Free Text) Plan: Assessment severe sepsis due to bilateral HCAP, clinically improving pleural effusion S/P thoracentesis history of Systemic Inflammatory response syndrome, consider due to acute musculoskeletal pain on top of probable metastatic prostate cancer asymptomatic bacteriuria with Staph epidermidis CAD S/P CABG prostate CA S/P radiation therapy HTN dyslipidemia significant smoking history Plan S/P 7 days of Zyvox and Merrem - will monitor off antibiotics since he is at risk for nosocomial infections follow up pleural fluid analysis results overall prognosis is poor
--- NOTE | 2018-04-28 16:31 | US ---
HISTORY: Arm pain and swelling. Evaluate for deep venous thrombosis. PHYSICIAN(S): Ancelmo uTcker MD. FINDINGS: The right internal jugular vein is small but otherwise the jugular veins are sonographically normal and compressible. . No evidence of obstruction or thrombus this is seen. The visualized segments of the subclavian veins are patent with normal waveforms. No sonographic evidence of obstruction or thrombosis is seen. The visualized deep venous systems of both upper extremities proximally are sonographically normal and compressible. IMPRESSION: 1. No sonographic evidence for deep venous thrombosis in the visualized segments of both upper strategies.
[2018-04-28] MEDS: Oxycodone/Acetaminophen 5/325 mg Tab PO PRN (16:47)
--- NOTE | 2018-04-28 20:01 | PN ---
DATE: 04/28/2018 SUBJECTIVE: The patient is 82-year-old, seems to be much more awake and alert, eating cupcake brought from home. He states his appetite seems to be better . PHYSICAL EXAMINATION: VITAL SIGNS: The patient is afebrile, pulse 102, respirations 20, blood pressure 122/66. LUNGS: Bilateral diffusely decreased breath sounds, more so at bases. HEART: S1 and S2 audible. ABDOMEN: Soft, nontender. No rebound, no guarding. NEUROLOGIC: The patient is awake, alert, and oriented. EXTREMITIES: Has bilateral arm edema that has subsided, because of infiltration of IV. Bilateral leg edema seems to be improving, on currently. ASSESSMENT: 1. Metastatic urothelial carcinoma of the bladder. 2. History of cancer of prostate, status post radiation. 3. Bilateral pleural effusion, status post thoracentesis. 4. Bilateral pneumonia. 5. Generalized weakness. 6. Chronic obstructive pulmonary disease. 7. History of heavy smoking. PLAN: We will continue the patient on current medication. Encourage physical therapy and we will follow up the patient in a.m. Amina Green MD
[2018-04-29] MEDS: Albuterol-Ipratrop 3 mg / 0.5 (3 ml) UD IH SCH ×4 (01:33→19:30)
--- NOTE | 2018-04-29 14:54 | CP.PCM.PN ---
Subjective - Date & Time of Evaluation Date of Evaluation: 04/29/18 Time of Evaluation: 10:25 - Subjective Subjective: Comfortable in bed, afebrile, not in distress. Objective - Vital Signs/Intake and Output Vital Signs (last 24 hours): Temp Pulse Resp BP Pulse Ox 98.3 F 110 H 20 107/22 L 99 04/28/18 10:00 04/28/18 10:00 04/28/18 10:00 04/28/18 10:00 04/28/18 10:00 Intake and Output: 04/29/18 04/29/18 06:59 18:59 Intake Total 360 Balance 360 - Medications Medications: Current Medications Albuterol/Ipratropium (Duoneb 3 Mg/0.5 Mg (3 Ml) Ud) 3 ml IH Q2H PRN; Protocol PRN Reason: Shortness of Breath Last Admin: 04/26/18 05:41 Dose: 3 ml Albuterol/Ipratropium (Duoneb 3 Mg/0.5 Mg (3 Ml) Ud) 3 ml IH [id number] CELESTINE PRN Reason: Protocol Last Admin: 04/29/18 13:19 Dose: 3 ml Alprazolam (Xanax) 0.25 mg PO BID CELESTINE PRN Reason: Protocol Stop: 05/03/18 10:01 Last Admin: 04/29/18 10:56 Dose: 0.25 mg Aspirin (Aspirin Chewable) 81 mg PO DAILY CELESTINE PRN Reason: Protocol Last Admin: 04/29/18 10:51 Dose: 81 mg Cyproheptadine HCl (Periactin) 4 mg PO TID [facility] Last Admin: 04/29/18 13:17 Dose: 4 mg Heparin Sodium (Porcine) (Heparin) 5,000 units SC Q12 CELESTINE PRN Reason: Protocol Last Admin: 04/29/18 13:22 Dose: 5,000 units Ibuprofen (Motrin Tab) 600 mg PO Q6H PRN; Protocol PRN Reason: Pain, moderate (4-7) Last Admin: 04/29/18 10:50 Dose: 600 mg Nicotine (Nicoderm Cq) 1 patch TD DAILY CELESTINE PRN Reason: Protocol Last Admin: 04/29/18 10:50 Dose: 1 patch Tamsulosin HCl (Flomax) 0.4 mg PO BID CELESTINE PRN Reason: Protocol Last Admin: 04/29/18 10:51 Dose: 0.4 mg - Labs Labs: 04/26/18 06:30 04/26/18 06:30 - Constitutional Appears: Chronically Ill - Head Exam Head Exam: NORMAL INSPECTION - Respiratory Exam Respiratory Exam: Decreased Breath Sounds - Cardiovascular Exam Cardiovascular Exam: +S1, +S2 - GI/Abdominal Exam GI & Abdominal Exam: Soft. absent: Tenderness Assessment and Plan - Assessment and Plan (Free Text) Plan: Assessment severe sepsis due to bilateral HCAP, clinically improved and S/P treatment pleural effusion S/P thoracentesis history of Systemic Inflammatory response syndrome, consider due to acute musculoskeletal pain on top of probable metastatic prostate cancer asymptomatic bacteriuria with Staph epidermidis CAD S/P CABG prostate CA S/P radiation therapy HTN dyslipidemia significant smoking history Plan S/P 7 days of Zyvox and Merrem - will monitor off antibiotics since he is at risk for hospital-acquired infections overall prognosis is poor
--- NOTE | 2018-04-30 00:41 | PN ---
DATE: 04/29/2018 SUBJECTIVE: He is comfortable in bed, in no acute distress. No event overnight. Appetite improved. REVIEW OF SYSTEMS: As per HPI. Rest of 12-point review systems reviewed negative. MEDICATIONS: Reviewed. PHYSICAL EXAMINATION: GENERAL: Comfortable in bed, in no acute distress. VITAL SIGNS: Temperature 98.7, heart rate 80 per minute, respiratory rate 18 per minute, blood pressure 120/60. HEENT: Pallor positive. NECK: No lymphadenopathy. CHEST: Air entry present, equal bilateral. No added sound. CARDIOVASCULAR: S1, S2 normal. No murmur. No gallop. NEUROLOGICAL: Awake, alert, oriented. EXTREMITIES: Bilateral arm edema subsided. SKIN: No petechiae. No rash. LABORATORY DATA: Reviewed. ASSESSMENT: 1. Stage IV bladder cancer. 2. History of prostate cancer status post radiation. 3. Bilateral pleural effusion. 4. Bilateral pneumonia. 5. Heavy smoking. 6. Generalized weakness. PLAN: We will continue current medications. Continue physical therapy. Continue DuoNebs. Heparin prophylaxis. He is on Nicoderm patch one daily. Flomax 0.4 mg b.i.d. Lianne Hightower MD
[2018-04-30] MEDS: Albuterol-Ipratrop 3 mg / 0.5 (3 ml) UD IH SCH ×4 (01:00→19:55)
--- NOTE | 2018-04-30 14:19 | PN ---
DATE: 04/30/2018 SUBJECTIVE: Patient is 82-year-old, seen and examined, seems to be doing well, eating better, more alert, participating in therapy. No fever or chills. PHYSICAL EXAMINATION: VITAL SIGNS: He is afebrile, pulse 76, respirations 19, blood pressure 94/62. LUNGS: Bilateral fair airflow. No rhonchi or crackle. Decreased breath sounds at bases. HEART: S1, S2 audible. ABDOMEN: Soft, nontender. No rebound. No guarding. NEUROLOGICAL: Patient is awake, alert, oriented, communicative. EXTREMITIES: Bilateral legs, +1 edema. ASSESSMENT: 1. Metastatic urothelial carcinoma, metastases to the lung. 2. History of cancer of prostate. 3. Bilateral pleural effusion, status post thoracentesis. 4. Bilateral pneumonia. 5. Deconditioning and difficulty walking. PLAN: The patient is doing well on current regimen. He has finished course of antibiotics. Encouraged ambulation. Possible discharge on 05/02/2018. Amina Green MD
--- NOTE | 2018-04-30 15:45 | CP.PCM.PN ---
Subjective - Date & Time of Evaluation Date of Evaluation: 04/30/18 Time of Evaluation: 12:15 - Subjective Subjective: Comfortable in bed, no fevers. Objective - Vital Signs/Intake and Output Vital Signs (last 24 hours): Temp Pulse Resp BP Pulse Ox 99.4 F 76 19 94/62 L 99 04/29/18 16:00 04/29/18 16:00 04/29/18 16:00 04/29/18 16:00 04/29/18 10:00 - Medications Medications: Current Medications Albuterol/Ipratropium (Duoneb 3 Mg/0.5 Mg (3 Ml) Ud) 3 ml IH Q2H PRN; Protocol PRN Reason: Shortness of Breath Last Admin: 04/26/18 05:41 Dose: 3 ml Albuterol/Ipratropium (Duoneb 3 Mg/0.5 Mg (3 Ml) Ud) 3 ml IH [id number] CELESTINE PRN Reason: Protocol Last Admin: 04/30/18 13:23 Dose: 3 ml Alprazolam (Xanax) 0.25 mg PO BID CELESTINE PRN Reason: Protocol Stop: 05/03/18 10:01 Last Admin: 04/30/18 09:53 Dose: 0.25 mg Aspirin (Aspirin Chewable) 81 mg PO DAILY CELESTINE PRN Reason: Protocol Last Admin: 04/30/18 09:54 Dose: 81 mg Cyproheptadine HCl (Periactin) 4 mg PO TID [facility] Last Admin: 04/30/18 14:39 Dose: 4 mg Heparin Sodium (Porcine) (Heparin) 5,000 units SC Q12 CELESTINE PRN Reason: Protocol Last Admin: 04/30/18 09:56 Dose: 5,000 units Ibuprofen (Motrin Tab) 600 mg PO Q6H PRN; Protocol PRN Reason: Pain, moderate (4-7) Last Admin: 04/29/18 21:26 Dose: 600 mg Nicotine (Nicoderm Cq) 1 patch TD DAILY CELESTINE PRN Reason: Protocol Last Admin: 04/30/18 09:54 Dose: 1 patch Tamsulosin HCl (Flomax) 0.4 mg PO BID CELESTINE PRN Reason: Protocol Last Admin: 04/30/18 09:54 Dose: 0.4 mg - Labs Labs: 04/26/18 06:30 04/26/18 06:30 - Constitutional Appears: Chronically Ill - Head Exam Head Exam: NORMAL INSPECTION - Respiratory Exam Respiratory Exam: Decreased Breath Sounds - Cardiovascular Exam Cardiovascular Exam: +S1, +S2 - GI/Abdominal Exam GI & Abdominal Exam: Soft. absent: Tenderness Assessment and Plan - Assessment and Plan (Free Text) Plan: Assessment severe sepsis due to bilateral HCAP, clinically improved and S/P treatment pleural effusion S/P thoracentesis history of Systemic Inflammatory response syndrome, consider due to acute musculoskeletal pain on top of probable metastatic prostate cancer asymptomatic bacteriuria with Staph epidermidis CAD S/P CABG prostate CA S/P radiation therapy HTN dyslipidemia significant smoking history Plan S/P 7 days of Zyvox and Merrem - will monitor off antibiotics since he is at risk for healthcare-associated infections overall prognosis is poor
[2018-04-30 16:30] VITALS: RESP 20
[2018-05-01] MEDS: Albuterol-Ipratrop 3 mg / 0.5 (3 ml) UD IH SCH ×4 (02:22→20:24)
--- NOTE | 2018-05-01 10:09 | CP.PCM.CON ---
History of Present Illness - History of Present Illness History of Present Illness: Palliative consult requested by Sen Green Reason: advanced Care Planning 82 year old male with history of COPD, bladder cancer, HTN who was initially admitted to acute care on with weakness,weight loss and shortness of breath. Work up revealed metastatic disease in lung. He also was found to have community acquired pneumonia. He has sine transitioned to [facility] (04/25/18) for deconditioning and completion of antibiotic therapy. He denies fever, chills, nausea, vomiting, chest/abdominal pain,dysuria. PMHx: Prostate cancer, bladder cancer s/p RT, COPD,HTN, anemia, CAD s/p CABG, indwelling ghosh Social History: Former heavy smoker, occasional alcohol no drug use. lives with spouse. Family History: Non contributory Advance Care Planning:The patient does not have an Advanced Directive Review of Systems: As per HPI, 12 point review otherwise negative Vital Signs: T 98.7, P 73, BP 110/70, R 20, 02 sat 97 on nasla cannula Labs 04/26/18:Wbc 13.9, Hgb 10.8, Plt 354,NA 131, K 4,5, Bun 12, Creat 0.7, Cal8.2, Alk Phos 230, albumin 2.6 Past Patient History - Infectious Disease Hx of Infectious Diseases: None - Past Social History Smoking Status: Former Smoker - CARDIAC Hx Cardiac Disorders: (CAD, S/P CABG) Hx Hypertension: Yes - PULMONARY Hx Chronic Obstructive Pulmonary Disease (COPD): Yes - NEUROLOGICAL Hx Paralysis: No - RENAL Hx Chronic Kidney Disease: Yes Other/Comment: Bladder CA - HEMATOLOGICAL/ONCOLOGICAL Hx Blood Transfusions: (UNKNOWN) - MUSCULOSKELETAL/RHEUMATOLOGICAL Hx Musculoskeletal Disorders: No Hx Falls: No - GASTROINTESTINAL Hx Gastrointestinal Disorders: Yes (weight loss 25 lbs in 6 months) - GENITOURINARY/GYNECOLOGICAL Hx Genitourinary Disorders: Yes (weak stream/nocturia/has 2wf) Other/Comment: PROSTATE CA WITH RADIATION. - PSYCHIATRIC Hx Emotional Abuse: No Hx Physical Abuse: No Hx Substance Use: No - SURGICAL HISTORY Hx Surgeries: Yes (CABG,TRIPLE BYPASS) Hx Coronary Stent: Yes - ANESTHESIA Hx Anesthesia Reactions: No Hx Malignant Hyperthermia: No Meds Allergies/Adverse Reactions: Allergies Allergy/AdvReac Type Severity Reaction Status Date / Time No Known Allergies Allergy Verified 04/26/18 02:15 - Medications Medications: Current Medications Albuterol/Ipratropium (Duoneb 3 Mg/0.5 Mg (3 Ml) Ud) 3 ml IH Q2H PRN; Protocol PRN Reason: Shortness of Breath Last Admin: 04/26/18 05:41 Dose: 3 ml Albuterol/Ipratropium (Duoneb 3 Mg/0.5 Mg (3 Ml) Ud) 3 ml IH [id number] CELESTINE PRN Reason: Protocol Last Admin: 05/01/18 07:10 Dose: 3 ml Alprazolam (Xanax) 0.25 mg PO BID CELESTINE PRN Reason: Protocol Stop: 05/03/18 10:01 Last Admin: 04/30/18 17:56 Dose: 0.25 mg Aspirin (Aspirin Chewable) 81 mg PO DAILY CELESTINE PRN Reason: Protocol Last Admin: 04/30/18 09:54 Dose: 81 mg Cyproheptadine HCl (Periactin) 4 mg PO TID [facility] Last Admin: 04/30/18 17:57 Dose: 4 mg Heparin Sodium (Porcine) (Heparin) 5,000 units SC Q12 CELESTINE PRN Reason: Protocol Last Admin: 04/30/18 21:39 Dose: 5,000 units Ibuprofen (Motrin Tab) 600 mg PO Q6H PRN; Protocol PRN Reason: Pain, moderate (4-7) Last Admin: 05/01/18 02:28 Dose: 600 mg Nicotine (Nicoderm Cq) 1 patch TD DAILY [facility] PRN Reason: Protocol Last Admin: 04/30/18 09:54 Dose: 1 patch Tamsulosin HCl (Flomax) 0.4 mg PO BID [facility] PRN Reason: Protocol Last Admin: 04/30/18 17:56 Dose: 0.4 mg Physical Exam - Constitutional Appears: Cachectic, Chronically Ill - Head Exam Head Exam: NORMAL INSPECTION - Eye Exam Eye Exam: Normal appearance, PERRL - ENT Exam ENT Exam: Mucous Membranes Moist, Normal Oropharynx - Neck Exam Neck exam: Positive for: Normal Inspection - Respiratory Exam Respiratory Exam: Decreased Breath Sounds Additional comments: dyspnea on exertion - GI/Abdominal Exam GI & Abdominal Exam: Soft - Exam Additional comments: indwelling ghosh - Extremities Exam Extremities exam: Positive for: pedal edema, pedal pulses present - Back Exam Back exam: NORMAL INSPECTION - Neurological Exam Neurological exam: Alert - Skin Skin Exam: Dry, Pallor - Additional Findings Additional findings: palliative performance scale rating 40% Results - Vital Signs Recent Vital Signs: Last Vital Signs Temp 98.1 F 04/30/18 10:00 Pulse 112 H 04/30/18 16:50 Resp 20 04/30/18 10:00 BP 127/78 04/30/18 10:00 Pulse Ox 88 L 04/30/18 16:50 - Labs Result Diagrams: 04/26/18 06:30 04/26/18 06:30 Assessment & Plan - Assessment and Plan (Free Text) Assessment: 82 year old male with history of COPD, HTN, metastatic bladder cancer, prostate cancer who is admitted to [facility] for completion of antibiotic therapy and deconditioning. The patient is alert, forgetful at times. Aware of hsi diagnosis of metastatic bladder cancer. Advance care planning discussed in the presence of patients . The patient wants to initiate an Advanced Directive. He states that he doses not want intubation /CPR or dialysis> he appoints his as his health care proxy> Patient also states that he willing to pursue treatment of his cancer. He intends to start treatment next week. His is supportive of his wishes. Psychosocial support provided. Goals of care and advanced care planning discussion with patient and , 30 minutes Plan: Advance care planning: Advanced Directive completed Goals of care Metastatic bladder cancer: Will follow up with Dr Covarrubias on Monday Pulmonary: Bright, 02, f/u chest x ray.
--- NOTE | 2018-05-01 18:03 | RAD ---
Date of service: 05/01/2018 HISTORY: Pneumonia COMPARISON: 04/25/2018. FINDINGS: LUNGS: Progressive infiltrates bilaterally. PLEURA: Increasing pleural effusions. CARDIOVASCULAR: No radiographic findings to suggest acute or significant cardiovascular disease. Incidental Finding(s): Postoperative changes related to sternotomy. OSSEOUS STRUCTURES: No significant abnormalities. VISUALIZED UPPER ABDOMEN: Normal. OTHER FINDINGS: None. IMPRESSION: Increasing infiltrates and bilateral pleural effusions.
[2018-05-01 20:10] LABS: PH,URINE 6.5 (4.7-8.0); URINE APPEARANCE SLIGHT-CLOUDY (CLEAR); URINE BILIRUBIN SMALL (NEGATIVE); URINE BLOOD LARGE (NEGATIVE); URINE COLOR YELLOW (YELLOW); URINE GLUCOSE (UA) NEGATIVE (NEGATIVE); URINE LEUKOCYTE ESTERASE MODERATE Leu/uL (NEGATIVE); URINE PROTEIN 100 mg/dL (<30 mg/dL)
[2018-05-01 20:26] LABS: URINE BACTERIA MANY (NEG); URINE HYALINE CAST 0 - 2 /hpf
[2018-05-02] MEDS: Albuterol-Ipratrop 3 mg / 0.5 (3 ml) UD IH SCH ×4 (01:08→20:51)
[2018-05-02 07:59] LABS: BASO # 0.02 K/mm3 (0.0-2.0); BASO % 0.2 % (0.0-3.0); EOS # 0.1 (0.0-0.7); EOS % 0.7 % (1.5-5.0); GRAN # 10.23 (1.4-6.5); GRAN % 85.5 % (50.0-68.0); HEMOGLOBIN 9.3 g/dL (14.0-18.0); LYMPH # 0.6 (1.2-3.4); LYMPH % 4.8 % (22.0-35.0); MEAN CELL VOLUME 96.2 fl (80.0-105.0); MEAN CORPUSCULAR HEMOGLOBIN 29.5 pg (25.0-35.0); MEAN CORPUSCULAR HGB CONC 30.7 g/dl (31.0-37.0); MONO # 1.1 (0.1-0.6); MONO % 8.8 % (1.0-6.0); PLATELET COUNT 183 10^3/uL (120.0-450.0); RBC 3.15 10^6/uL (3.5-6.1); RED CELL DISTRIBUTION WIDTH 15.6 % (11.5-14.5)
[2018-05-02 08:24] LABS: ALB/GLOB RATIO 0.9 (1.1-1.8); ALBUMIN 2.2 g/dL (3.0-4.8); ALT/SGPT 19 U/L (7-56); AST/SGOT 18 U/L (17-59); BLOOD UREA NITROGEN 22 mg/dL (7-21); CALCIUM 8.1 mg/dL (8.4-10.5); GFR AFRICAN-AMERICAN > 60; GFR NON-AFRICAN AMERICAN > 60
--- NOTE | 2018-05-02 08:26 | PN ---
DATE: 05/01/2018 SUBJECTIVE: Patient is 82 years old, seen and examined. Seems to be awake, alert, and oriented. Answering well. Eating well. Participating in therapy. Has generalized weakness. PHYSICAL EXAMINATION: VITAL SIGNS: He is afebrile, pulse 71, respiration 20, blood pressure 113/69. LUNGS: Decreased breath sound at bases. HEART: S1 and S2 audible. ABDOMEN: Soft, nontender. No rebound, no guarding. NEUROLOGIC: Patient is awake, alert, oriented, communicative. ASSESSMENT: 1. Urothelial bladder cancer. 2. Metastasis to the lung. 3. Pleural effusion, status post thoracentesis. 4. Hypertension. 5. Generalized weakness, deconditioning, and difficulty walking. PLAN: Discussed with Dr. Covarrubias. She will start immunotherapy as outpatient. So, patient is scheduled to be discharged tomorrow and at this point, we will hold off on hospice care. We will try immunotherapy if he tolerated well. If not, then he might be a candidate for hospice care. Amina Green MD
[2018-05-02 08:30] LABS: EOSINOPHIL 1 % (0.0-3.0); LYMPHOCYTE 5 % (22.0-35.0); MONOCYTE 5 % (1.0-6.0); NEUTROPHIL 89 % (50.0-70.0); PLATELET ESTIMATE NORMAL (NORMAL)
[2018-05-02 08:31] LABS: ANISOCYTOSIS SLIGHT; HYPOCHROMIA SLIGHT
--- NOTE | 2018-05-02 14:06 | CP.PCM.PN ---
Subjective - Date & Time of Evaluation Date of Evaluation: 05/02/18 Time of Evaluation: 10:05 - Subjective Subjective: Chronically ill but not in distress. Objective - Vital Signs/Intake and Output Vital Signs (last 24 hours): Temp Pulse Resp BP Pulse Ox 99.2 F 111 H 20 125/77 85 L 05/01/18 17:26 05/01/18 16:41 05/01/18 16:00 05/01/18 16:00 05/01/18 16:41 Intake and Output: 05/02/18 05/02/18 06:59 18:59 Intake Total 240 Output Total 900 Balance -660 - Medications Medications: Current Medications Albuterol/Ipratropium (Duoneb 3 Mg/0.5 Mg (3 Ml) Ud) 3 ml IH Q2H PRN; Protocol PRN Reason: Shortness of Breath Last Admin: 04/26/18 05:41 Dose: 3 ml Albuterol/Ipratropium (Duoneb 3 Mg/0.5 Mg (3 Ml) Ud) 3 ml IH [id number] CELESTINE PRN Reason: Protocol Last Admin: 05/02/18 08:09 Dose: 3 ml Alprazolam (Xanax) 0.25 mg PO 1000,2200 CELESTINE PRN Reason: Protocol Stop: 05/08/18 22:01 Last Admin: 05/01/18 23:13 Dose: 0.25 mg Aspirin (Aspirin Chewable) 81 mg PO DAILY CELESTINE PRN Reason: Protocol Last Admin: 05/01/18 10:04 Dose: 81 mg Cyproheptadine HCl (Periactin) 4 mg PO TID [facility] Last Admin: 05/01/18 17:26 Dose: 4 mg Heparin Sodium (Porcine) (Heparin) 5,000 units SC Q12 CELESTINE PRN Reason: Protocol Last Admin: 05/01/18 23:11 Dose: 5,000 units Ibuprofen (Motrin Tab) 600 mg PO Q6H PRN; Protocol PRN Reason: Pain, moderate (4-7) Last Admin: 05/01/18 17:26 Dose: 600 mg Nicotine (Nicoderm Cq) 1 patch TD DAILY CELESTINE PRN Reason: Protocol Last Admin: 05/01/18 10:05 Dose: 1 patch Tamsulosin HCl (Flomax) 0.4 mg PO BID CELESTINE PRN Reason: Protocol Last Admin: 05/01/18 17:28 Dose: 0.4 mg - Labs Labs: 05/02/18 07:30 05/02/18 07:30 - Constitutional Appears: Chronically Ill - Respiratory Exam Respiratory Exam: Decreased Breath Sounds - Cardiovascular Exam Cardiovascular Exam: +S1, +S2 - GI/Abdominal Exam GI & Abdominal Exam: Soft. absent: Tenderness Assessment and Plan - Assessment and Plan (Free Text) Plan: Assessment S/P severe sepsis due to bilateral HCAP, clinically improved and S/P treatment pleural effusion S/P thoracentesis history of Systemic Inflammatory response syndrome, consider due to acute musculoskeletal pain on top of probable metastatic prostate cancer asymptomatic bacteriuria with Staph epidermidis CAD S/P CABG prostate CA S/P radiation therapy HTN dyslipidemia significant smoking history Plan S/P 7 days of Zyvox and Merrem - will monitor off antibiotics since he is at risk for nosocomial infections overall prognosis is poor
--- NOTE | 2018-05-02 20:16 | PN ---
DATE: 05/02/2018 SUBJECTIVE: The patient is 82 years old, seen and examined, seems to be doing well, mild shortness of breath, eating better. PHYSICAL EXAMINATION VITAL SIGNS: He is afebrile, pulse 95, respirations 20, and blood pressure 109/62. LUNGS: Bilateral fair airflow. Decreased at bases. HEART: S1, S2 audible. ABDOMEN: Soft, nontender. No rebound, no guarding. NEUROLOGIC: The patient is awake and alert, able to communicate. EXTREMITIES: Bilateral legs, +1 edema. Right arm is swollen too. LABORATORY EXAM: WBC is 12, hemoglobin 9.3, hematocrit 30, and platelets 183. Chemistry: Sodium 142, potassium 4.4, chloride 100, CO2 of 36. BUN 22, creatinine 0.7. Blood sugar of 90. ASSESSMENT: 1. Urothelial carcinoma of bladder. 2. Cancer of lungs. 3. Bilateral pleural effusion, status post thoracentesis. 4. Hypertension. 5. Chronic obstructive pulmonary disease. PLAN: Currently, patient is on nebulizer treatment. We will continue him on Flomax. He is on DVT prophylaxis. Discussed with Dr. Covarrubias. He will be discharged in the a.m., will have immunotherapy started as outpatient, and we will continue physical therapy as outpatient. We will follow up the patient in the a.m. Amina Green MD
[2018-05-03] MEDS: Albuterol-Ipratrop 3 mg / 0.5 (3 ml) UD IH SCH ×4 (02:23→20:06)
--- NOTE | 2018-05-03 12:45 | CP.PCM.PN ---
Subjective - Date & Time of Evaluation Date of Evaluation: 05/03/18 Time of Evaluation: 11:20 - Subjective Subjective: Appetite is poor, weak, no fevers but not in distress. Objective - Vital Signs/Intake and Output Vital Signs (last 24 hours): Temp Pulse Resp BP Pulse Ox 98.2 F 95 H 20 109/62 93 L 05/02/18 16:00 05/02/18 16:00 05/02/18 16:00 05/02/18 16:00 05/02/18 16:00 Intake and Output: 05/02/18 05/03/18 18:59 06:59 Intake Total 260 Output Total 1100 Balance -840 - Medications Medications: Current Medications Albuterol/Ipratropium (Duoneb 3 Mg/0.5 Mg (3 Ml) Ud) 3 ml IH Q2H PRN; Protocol PRN Reason: Shortness of Breath Last Admin: 04/26/18 05:41 Dose: 3 ml Albuterol/Ipratropium (Duoneb 3 Mg/0.5 Mg (3 Ml) Ud) 3 ml IH [id number] CELESTINE PRN Reason: Protocol Last Admin: 05/03/18 02:23 Dose: Not Given Alprazolam (Xanax) 0.25 mg PO 1000,2200 CELESTINE PRN Reason: Protocol Stop: 05/08/18 22:01 Last Admin: 05/02/18 21:39 Dose: 0.25 mg Aspirin (Aspirin Chewable) 81 mg PO DAILY CELESTINE PRN Reason: Protocol Last Admin: 05/02/18 09:53 Dose: 81 mg Cyproheptadine HCl (Periactin) 4 mg PO TID [facility] Last Admin: 05/02/18 17:48 Dose: 4 mg Heparin Sodium (Porcine) (Heparin) 5,000 units SC Q12 CELESTINE PRN Reason: Protocol Last Admin: 05/02/18 21:40 Dose: 5,000 units Ibuprofen (Motrin Tab) 600 mg PO Q6H PRN; Protocol PRN Reason: Pain, moderate (4-7) Last Admin: 05/02/18 20:47 Dose: 600 mg Nicotine (Nicoderm Cq) 1 patch TD DAILY CELESTINE PRN Reason: Protocol Last Admin: 05/02/18 09:52 Dose: 1 patch Tamsulosin HCl (Flomax) 0.4 mg PO BID CELESTINE PRN Reason: Protocol Last Admin: 05/02/18 17:48 Dose: 0.4 mg - Labs Labs: 05/02/18 07:30 05/02/18 07:30 - Constitutional Appears: Chronically Ill - Head Exam Head Exam: NORMAL INSPECTION - Neck Exam Neck Exam: absent: Meningismus - Respiratory Exam Respiratory Exam: Decreased Breath Sounds - Cardiovascular Exam Cardiovascular Exam: +S1, +S2 - GI/Abdominal Exam GI & Abdominal Exam: Soft. absent: Tenderness Assessment and Plan - Assessment and Plan (Free Text) Plan: Assessment S/P severe sepsis due to bilateral HCAP, clinically improved and S/P treatment pleural effusion S/P thoracentesis history of Systemic Inflammatory response syndrome, consider due to acute musculoskeletal pain on top of probable metastatic prostate cancer asymptomatic bacteriuria with Staph epidermidis CAD S/P CABG prostate CA S/P radiation therapy HTN dyslipidemia significant smoking history Plan S/P 7 days of Zyvox and Merrem - will monitor off antibiotics since he is at risk for hospital-acquired infections overall prognosis is poor
--- NOTE | 2018-05-03 13:26 | PN ---
DATE: 05/01/2018 SUBJECTIVE: The patient was seen early that morning in room 314. No fevers. No chills. No nausea. PHYSICAL EXAMINATION: VITAL SIGNS: Temperature 98, blood pressure is 113/70, respiratory rate 20, heart rate of 104. HEENT: Unremarkable. NECK: Supple. LUNGS: Have decreased breath sounds. HEART: Normal S1, S2. ABDOMEN: Soft. LABORATORY EXAMINATION: Reveals a white count of 12,000, hemoglobin of 9, platelets of 183. Chemistries reveals a BUN of 22, creatinine of 0.7. Urinalysis is noted. Microbiology is noted. ASSESSMENT AND PLAN: An 82-year-old male seen on 05/01/2018 in room 340 status post severe sepsis, bilateral healthcare-associated pneumonia, improving status post treatment. The patient had pleural effusion, status post thoracentesis and systemic inflammatory response syndrome with prostate cancer probable metastatic and currently off of antibiotics. The patient had completed therapy with Zyvox and meropenem at risk for developing nosocomial infections. Atilio Jenkins MD
--- NOTE | 2018-05-03 16:08 | DS ---
HISTORY OF PRESENT ILLNESS: The patient is 82 years old, seen and examined, doing well. Has generalized weakness. Eating and tolerating. PHYSICAL EXAMINATION: VITAL SIGNS: The patient is afebrile, pulse 104, respirations 20, blood pressure 113/71. LUNGS: Bilateral diffusely decreased breath sounds. HEART: S1 and S2 audible. ABDOMEN: Soft. Nontender. No rebound. No guarding. NEUROLOGICAL: The patient is awake, alert, oriented, communicative. LABORATORY EXAM: WBC is 12, hemoglobin 9.3, hematocrit 30.3, platelet of 183. Chemistry: Sodium 142, potassium 4.4, chloride 100, CO2 of 22, BUN 22, creatinine 0.7, blood sugar 190. ASSESSMENT: 1. Urothelial carcinoma of the bladder with metastasis to the lung. 2. Pleural effusion, status post thoracentesis. 3. Chronic obstructive pulmonary disease. 4. Hypertension. 5. Hyperlipidemia. 6. Deconditioning and difficulty walking. PLAN: The patient is going to be discharged home today. We will continue him on nebulizer treatment. We will continue him on Paxil, Flomax. He finished his course of antibiotics. We will continue him on nicotine patch and Periactin. The patient will follow up with Satish and immunotherapy will be started from Monday and we will follow him as outpatient. Amina Green MD
[2018-05-03 16:26] VITALS: BP 115/68; PULSE 104; TEMP 97.5; O2SAT 91
[2018-05-04] MEDS: Albuterol-Ipratrop 3 mg / 0.5 (3 ml) UD IH SCH ×2 (07:15→13:02)
--- NOTE | 2018-05-04 14:12 | CP.PCM.PN ---
Subjective - Date & Time of Evaluation Date of Evaluation: 05/04/18 Time of Evaluation: 12:05 - Subjective Subjective: Comfortable on a chair, no fevers, no SOB at rest. Objective - Vital Signs/Intake and Output Vital Signs (last 24 hours): Temp Pulse Resp BP Pulse Ox 97.5 F L 104 H 20 115/68 91 L 05/03/18 16:00 05/03/18 16:00 05/03/18 16:00 05/03/18 16:00 05/03/18 16:00 Intake and Output: 05/04/18 05/04/18 06:59 18:59 Intake Total 180 Output Total 400 Balance -220 - Medications Medications: Current Medications Albuterol/Ipratropium (Duoneb 3 Mg/0.5 Mg (3 Ml) Ud) 3 ml IH Q2H PRN; Protocol PRN Reason: Shortness of Breath Last Admin: 04/26/18 05:41 Dose: 3 ml Albuterol/Ipratropium (Duoneb 3 Mg/0.5 Mg (3 Ml) Ud) 3 ml IH [id number] CELESTINE PRN Reason: Protocol Last Admin: 05/04/18 13:02 Dose: 3 ml Alprazolam (Xanax) 0.25 mg PO 1000,2200 CELESTINE PRN Reason: Protocol Stop: 05/08/18 22:01 Last Admin: 05/04/18 09:27 Dose: 0.25 mg Aspirin (Aspirin Chewable) 81 mg PO DAILY CELESTINE PRN Reason: Protocol Last Admin: 05/04/18 09:24 Dose: 81 mg Cyproheptadine HCl (Periactin) 4 mg PO TID [facility] Last Admin: 05/04/18 13:37 Dose: 4 mg Heparin Sodium (Porcine) (Heparin) 5,000 units SC Q12 CELSETINE PRN Reason: Protocol Last Admin: 05/04/18 09:26 Dose: 5,000 units Ibuprofen (Motrin Tab) 600 mg PO Q6H PRN; Protocol PRN Reason: Pain, moderate (4-7) Last Admin: 05/04/18 05:42 Dose: 600 mg Nicotine (Nicoderm Cq) 1 patch TD DAILY CELESTINE PRN Reason: Protocol Last Admin: 05/04/18 09:26 Dose: 1 patch Tamsulosin HCl (Flomax) 0.4 mg PO BID CELESTINE PRN Reason: Protocol Last Admin: 05/04/18 09:24 Dose: 0.4 mg - Labs Labs: 05/02/18 07:30 05/02/18 07:30 - Constitutional Appears: Chronically Ill - Head Exam Head Exam: NORMAL INSPECTION - Respiratory Exam Respiratory Exam: Decreased Breath Sounds - Cardiovascular Exam Cardiovascular Exam: +S1, +S2 - GI/Abdominal Exam GI & Abdominal Exam: Soft. absent: Tenderness Assessment and Plan - Assessment and Plan (Free Text) Plan: Assessment S/P severe sepsis due to bilateral HCAP, clinically improved and S/P treatment pleural effusion S/P thoracentesis history of Systemic Inflammatory response syndrome, consider due to acute musculoskeletal pain on top of probable metastatic prostate cancer asymptomatic bacteriuria with Staph epidermidis CAD S/P CABG prostate CA S/P radiation therapy HTN dyslipidemia significant smoking history Plan S/P 7 days of Zyvox and Merrem - will monitor off antibiotics since he is at risk for healthcare-associated infections overall prognosis is poor
--- NOTE | 2018-05-05 21:58 | PN ---
DATE: 05/04/2018 SUBJECTIVE: He is comfortable in bed, in no acute distress. No events overnight. Appetite improved. He is participating physical therapy. Able to ambulate with support. REVIEW OF SYSTEMS: As per HPI. Rest of 12-point review of systems is reviewed and negative. MEDICATIONS: Reviewed. PHYSICAL EXAMINATION GENERAL: Comfortable in bed, in no acute distress. VITAL SIGNS: Temperature 98.5, heart rate is 70 per minute, respiratory rate 20 per minute, blood pressure 120/70. HEENT: Pallor positive. NECK: No lymphadenopathy. CHEST: Air entry present and equal bilateral. No added sounds. CARDIOVASCULAR: S1 and S2 normal. No murmur. No gallop. ABDOMEN: Soft, nontender. No hepatosplenomegaly. EXTREMITIES: No edema. SKIN: No petechiae, no rash. LABORATORY DATA: Labs reviewed. ASSESSMENT: 1. Stage IV bladder cancer. 2. Stage IV prostate cancer. 3. Bilateral pleural effusion. 4. Bilateral pneumonia with smoking. 5. Generalized weakness. 6. Gait dysfunction. PLAN: He is being discharged home in stable condition. He will follow up with his primary oncologist and follow up with Dr. Green. Resume home meds. Discussed with the staff nurse and discussed with the patient. Xanax prescription given to him to be taken 0.25 mg b.i.d. Lianne Hightower MD
== END 2018-05-04 15:58 | disposition home health service (06) | DRG 871 ==
LOC: TRCU 21:13
PROVIDERS: ADMIT Internal Medicine; ATTEND Internal Medicine
PROC: F07Z9FZ Gait Training/Functional Ambulation Treatment using Assistive, Adaptive, Supportive or Protective Equipment (ICD-10-PCS; principal; 2018-04-26)
PROC: F07M6ZZ Therapeutic Exercise Treatment of Musculoskeletal System - Whole Body (ICD-10-PCS; 2018-04-26)
DX: A41.9 Sepsis, unspecified organism (principal); J18.9 Pneumonia, unspecified organism; E87.1 Hypo-osmolality and hyponatremia; J44.0 Chronic obstructive pulmonary disease with (acute) lower respiratory infection; J90 Pleural effusion, not elsewhere classified; R65.20 Severe sepsis without septic shock; Y95 Nosocomial condition; D64.9 Anemia, unspecified; E78.5 Hyperlipidemia, unspecified; I12.9 Hypertensive chronic kidney disease with stage 1 through stage 4 chronic kidney disease, or unspecified chronic kidney disease; I25.10 Atherosclerotic heart disease of native coronary artery without angina pectoris; N18.9 Chronic kidney disease, unspecified; Z85.118 Personal history of other malignant neoplasm of bronchus and lung; Z85.46 Personal history of malignant neoplasm of prostate; Z87.01 Personal history of pneumonia (recurrent); Z92.3 Personal history of irradiation; Z95.1 Presence of aortocoronary bypass graft; Z95.5 Presence of coronary angioplasty implant and graft; Z85.51 Personal history of malignant neoplasm of bladder; R53.81 Other malaise; Z87.891 Personal history of nicotine dependence; Z79.82 Long term (current) use of aspirin